=== PATIENT | female | born 1930 | race Caucasian/White ===

== ENCOUNTER 2017-03-01 19:58 | Inpatient (IN) | payer MEDICARE, OTHER ==
[~2017-03-01] VITALS: Ht 162.6 cm; Wt 48.5 kg
--- NOTE | 2017-03-01 20:12 | NUR ---
PT BIB FACILITY STAFF TO ER BED 14. HERE FOR MEDICAL AND PSYCH CLEARANCE. PER REPORT, INCREASING CONFUSION AND HALLUCINATION. UPON ASSESSMENT, PT IS AAOX4. DENIES PAIN OR ANY DISCOMFORT. STABLE VITALS. AWAITING MD ARVIZU.
--- NOTE | 2017-03-01 20:18 | NUR ---
DR SANDERSON AT BEDSIDE FOR EVAL.
--- NOTE | 2017-03-01 20:30 | NUR ---
BODY AND FENDER MECHANIC APPRENTICE AT BEDSIDE FOR BLOOD DRAW.
[2017-03-01 20:36] LABS: BASOPHILS # (AUTO) 0.1 /CMM (0.0-0.2); BASOPHILS % (AUTO) 0.7 % (0.0-2.0); EOSINOPHILS # (AUTO) 0.3 /CMM (0.0-0.7); EOSINOPHILS % (AUTO) 2.4 % (0.0-6.0); HEMATOCRIT 34 % (33-45); HEMOGLOBIN 11.3 g/dL (11.5-14.8); LYMPHOCYTES # (AUTO) 2.4 /CMM (0.8-4.8); LYMPHOCYTES % (AUTO) 21.8 % (20.0-44.0); MEAN CORPUSCULAR HEMOGLOBIN 29 PG (26.0-33.0); MEAN CORPUSCULAR HGB CONC 33 g/dl (31.0-36.0); MEAN CORPUSCULAR VOLUME 87 fL (82-100); MONOCYTES % (AUTO) 9.2 % (2.0-12.0); NEUTROPHILS # (AUTO) 7.2 /CMM (1.8-8.9); NEUTROPHILS % (AUTO) 65.9 % (43.0-81.0); PLATELET COUNT (AUTO) 451 /CMM (150-450); RDW COEFFICIENT OF VARIATION 15.2 (11.5-15.0); RED BLOOD CELL COUNT(AUTO) 3.92 MIL/uL (4.0-5.2)
[2017-03-01 20:54] LABS: CALCIUM, SERUM 9.5 mg/dL (8.5-10.1); CARBON DIOXIDE 34 mmol/L (21-32); CHLORIDE 96 mmol/L (98-107); CREATININE 1.1 mg/dL (0.6-1.3); GLUCOSE 140 mg/dL (74-106); POTASSIUM 4.8 mmol/L (3.5-5.1); SODIUM SERUM 133 mmol/L (136-145); UREA NITROGEN, BLOOD 43 mg/dL (7-18)
[2017-03-01 21:00] LABS: ALANINE AMINOTRANSFERASE 18 U/L (12-78); ALBUMIN 3.4 g/dL (3.4-5.0); ALKALINE PHOSPHATASE 99 U/L (46-116); ASPARTATE AMINOTRANSFERASE 13 U/L (15-37); BILIRUBIN,DIRECT 0.1 mg/dL (0.0-0.2); BILIRUBIN,TOTAL 0.1 mg/dL (0.2-1.0); SALICYLATE 1.8 mg/dL (2.8-20.0); TOTAL PROTEIN, SERUM 7.9 g/dL (6.4-8.2)
[2017-03-01 21:01] LABS: ACETAMINOPHEN 0 ug/ml (10-30); ALCOHOL, BLOOD < 5 mg/dL (0-0)
[2017-03-01 21:28] LABS: APPEARANCE,URINE Clear (CLEAR); BILIRUBIN,URINE Negative (NEGATIVE); BLOOD, URINE Moderate Ery/uL (NEGATIVE); COLOR,URINE Yellow (YELLOW); KETONES,URINE Negative (NEGATIVE); LEUKOCYTE ESTERASE ,URINE Large (NEGATIVE); NITRITE, URINE Negative (NEGATIVE); PROTEIN,URINE 100 mg/dl (NEGATIVE); UGLUCOSE Negative (NEGATIVE)
[2017-03-01] MEDS ORDERED: IV NS 0.9% 500 ML BAG IV ONE (21:30)
[2017-03-01 21:34] LABS: CANNABINOID, URINE NEGATIVE (NEGATIVE); PHENCYCLIDINE SCREEN,URINE NEGATIVE (NEGATIVE)
[2017-03-01 21:56] LABS: ADD URINE CULTURE YES; BACTERIA,URINE Many /HPF (None Seen); SQUAMOUS EPITHELIAL CELL,UR Few /HPF (None Seen); URINE AMORPHOUS URATE Few /HPF (None Seen); WBC,URINE TOO NUMEROUS TO COUN /HPF (0-3)
[2017-03-01] MEDS ORDERED: CIPROFLOXACIN HCL 500 MG TABLET PO ONE (22:30)
[2017-03-01] MEDS ORDERED: CIPROFLOXACIN HCL 500 MG TABLET ONE (22:31)
--- NOTE | 2017-03-01 23:06 | NUR ---
REPORT GIVEN TO JACOBO. PT AWAITING TRANSFER TO FLOOR.
[2017-03-01 23:30] VITALS: BP 148/72
[2017-03-02] MEDS ORDERED: ZOLPIDEM TARTRATE 5 MG TABLET PO PRN
[2017-03-02] MEDS ORDERED: LORAZEPAM 0.5 MG TABLET PO PRN
--- NOTE | 2017-03-02 | NUR ---
RN NOTE; ADMITTED A 87Y/O F, A, OX2. CONFUSED , WORRIED AND ANXIOUS. UNABLE TO PROVIDE ANY MEDICAL HX. BREATHING EVENLY. NO SOB. NO DISTRESS. AFEBRILE. DENIED ANY PAIN OR DISCOMFORT. ASSISTED PT TO THE BED . GOWNED , BODY CHECK DONE. NEEDS ATTENDED . BED LOW LOCKED. CALL BUTTON WITHIN REACH. WILL CONT TO MONITOR AND WILL F/U W/ MD'S ORDER.
[2017-03-02 00:37] VITALS: BP 148/72
[2017-03-02] MEDS ORDERED: METF850T2 PO (05:43)
[2017-03-02] MEDS ORDERED: LACT1CAP61 PO (05:43)
[2017-03-02] MEDS ORDERED: METO25TA6 PO (05:43)
[2017-03-02] MEDS ORDERED: MULT1TAB11 PO (05:43)
[2017-03-02] MEDS ORDERED: FERR325T28 PO (05:43)
[2017-03-02] MEDS ORDERED: ASCO500W7 PO (05:43)
[2017-03-02] MEDS ORDERED: ASPI-991 PO (05:43)
[2017-03-02] MEDS ORDERED: CHOL400T11 PO (05:43)
[2017-03-02] MEDS ORDERED: LINA5TAB PO (05:43)
[2017-03-02] MEDS ORDERED: VITA1CAP PO (05:43)
[2017-03-02] MEDS ORDERED: RANI150T8 PO (05:43)
--- NOTE | 2017-03-02 06:23 | NUR ---
RN NOTE; PT IN BED AWAKE AND RESPONSIVE. BREATHING EVENLY. NO SOB. NO DISTRESS. NO PSYCH OR BEHAVIORAL ISSUES NOTED SINCE ADMISSION. REMAINED CALM AND QUIET W/ NO EPISODE OF ANXIETY OR COMBATIVENESS. ASSISTED W/ ADLS . CLEANED AND DRIED. BED LOW LOCKED. CALL LIGHT WITHIN REACH. WILL CONT TO MONITOR AND WILL ENDORSE TO AM SHIFT FOR DOUGLAS.
[2017-03-02 07:34] LABS: CREATININE 1.1 mg/dL (0.6-1.3)
[2017-03-02] MEDS ORDERED: AMIN30LI4 PO (07:37)
[2017-03-02 07:39] LABS: CHOLESTEROL 197 mg/dL (<200); HDL CHOLESTEROL 59 mg/dL (40-60); LDL 110 mg/dL (0-99); TRIGLYCERIDES 210 mg/dL (30-150)
[2017-03-02] MEDS ORDERED: MAGN400O6 PO (07:46)
[2017-03-02] MEDS ORDERED: ACET-868 PO (07:46)
[2017-03-02] MEDS ORDERED: MAG30ORA PO (07:46)
[2017-03-02] MEDS ORDERED: HYDR-548 PO (07:49)
[2017-03-02 08:00] VITALS: BP 154/80
[2017-03-02] MEDS ORDERED: LEVOFLOXACIN (750 MG) 750 MG TABLET PO SCH ×2 (11:30→12:00)
[2017-03-02] MEDS ORDERED: DEXTROSE 50%-WATER 50 ML DISP.SYRIN IV PRN (11:30)
--- NOTE | 2017-03-02 12:03 | NUR ---
Initial DC Plan: Patient resides at [facility] ([address], [place] [address]; ). Assigned SW to contact facility to see if patient is able to return once discharged. SW attempted to contact the patient's dtr Blanca Hutchinson ([phone]) but she did not answer and SW left her contact information. Assigned SW to follow up with the patient's daughter regarding discharge plan. Patient wants to return to [facility] once discharged from the hospital. For smoking cessation, patient will be referred to the [employer] (990-YDHX-ZCE) and the [employer] ([phone]). SW will help form a safe and proper discharge.
[2017-03-02] MEDS: BLOOD SUGAR DIAGNOSTIC 1 EACH STRIP IN SCH ×3 (12:06→22:38)
[2017-03-02] MEDS: INSULIN REGULAR, HUMAN 100 UNIT/ML 3 ML VIAL SQ PRN ×2 (12:19→17:57)
--- NOTE | 2017-03-02 13:02 | NUR ---
Dr. Canales came into the unit, examined the pt. and with orders and was told to reconcile meds.
[2017-03-02] MEDS ORDERED: HYDROCODONE/APAP 10/325MG 1 EA TABLET PO PRN (13:30)
[2017-03-02] MEDS ORDERED: MAGNESIUM HYDROXIDE 30 ML UDC PO PRN ×2 (13:30)
[2017-03-02] MEDS ORDERED: ACETAMINOPHEN 325 MG TABLET PO PRN ×2 (13:30)
[2017-03-02] MEDS ORDERED: MAG HYDROX/AL HYDROX/SIMETH 30 ML UDC PO PRN ×2 (13:30)
[2017-03-02] MEDS: SERTRALINE HCL 25 MG TABLET PO SCH (15:20)
[2017-03-02 15:59] VITALS: BP 144/79
[2017-03-02] MEDS: LACTOBACILLUS RHAMNOSUS GG 1 EACH CAP.SPRINK PO SCH (16:26)
[2017-03-02] MEDS: PROSOURCE / PROSTAT (PYXIS) 30 ML UDC PO SCH (16:26)
[2017-03-02] MEDS: ASCORBIC ACID 500 MG TABLET PO SCH (16:27)
[2017-03-02] MEDS: METOPROLOL TARTRATE 25 MG TABLET PO SCH (16:27)
[2017-03-02] MEDS: FERROUS SULFATE (325 MG) 325 MG/TAB TABLET PO SCH (16:28)
[2017-03-02] MEDS: METFORMIN 850 MG TABLET PO SCH (16:28)
[2017-03-02] MEDS ORDERED: Medication Not On Formulary EA (Lactobacillus Acidophilus (Acidophilus) 1 EACH) PO SCH (17:00)
[2017-03-02] MEDS: FAMOTIDINE (20 MG) 20 MG TABLET PO SCH (21:13)
[2017-03-02] MEDS: QUETIAPINE FUMARATE 25 MG TABLET PO SCH (21:13)
[2017-03-03] MEDS ORDERED: ONDANSETRON 4 MG TAB.RAPDIS ONE (05:39)
--- NOTE | 2017-03-03 05:52 | NUR ---
patient vomited x 2 coffee brown called the drLynn second hand and received the order for Zofran 4 mg. q6hrs prn and administered to the patient.
--- NOTE | 2017-03-03 06:46 | NUR ---
BLOOD SUGAR THIS MORNING IS 215 WILL ENDURSE TO THE MORNING SHIFT FOR SLIDING SCALE.
[2017-03-03] MEDS ORDERED: ONDANSETRON 4 MG TAB.RAPDIS PO PRN (07:30)
[2017-03-03] MEDS: BLOOD SUGAR DIAGNOSTIC 1 EACH STRIP IN SCH ×4 (07:41→21:48)
[2017-03-03] MEDS: INSULIN REGULAR, HUMAN 100 UNIT/ML 3 ML VIAL SQ PRN ×2 (07:42→21:49)
[2017-03-03 08:00] VITALS: BP 141/87
[2017-03-03] MEDS: PROSOURCE / PROSTAT (PYXIS) 30 ML UDC PO SCH ×2 (08:27→16:33)
[2017-03-03] MEDS: VITAMIN B COMP W-C 1 TAB TABLET PO SCH (08:27)
[2017-03-03] MEDS: LACTOBACILLUS RHAMNOSUS GG 1 EACH CAP.SPRINK PO SCH ×2 (08:27→16:32)
[2017-03-03] MEDS: SERTRALINE HCL 25 MG TABLET PO SCH (08:28)
[2017-03-03] MEDS: METFORMIN 850 MG TABLET PO SCH ×2 (08:28→16:32)
[2017-03-03] MEDS: LINAGLIPTIN 5 MG TABLET PO SCH (08:28)
[2017-03-03] MEDS: MULTIVITAMINS W-MINERALS 1 TAB TABLET PO SCH (08:28)
[2017-03-03] MEDS: FAMOTIDINE (20 MG) 20 MG TABLET PO SCH ×2 (08:28→21:00)
[2017-03-03] MEDS: FERROUS SULFATE (325 MG) 325 MG/TAB TABLET PO SCH ×2 (08:28→16:32)
[2017-03-03] MEDS: ASPIRIN EC 81 MG TABLET.DR PO SCH (08:28)
[2017-03-03] MEDS: ASCORBIC ACID 500 MG TABLET PO SCH ×2 (08:28→16:32)
[2017-03-03] MEDS: METOPROLOL TARTRATE 25 MG TABLET PO SCH ×2 (08:29→16:33)
[2017-03-03] MEDS ORDERED: LEVOFLOXACIN (750 MG) 750 MG TABLET PO SCH (12:00)
[2017-03-03 13:46] LABS: IRON, SERUM 43 ug/dl (50-175); TOTAL IRON BINDING CAPACITY 344 ug/dl (250-450)
[2017-03-03] MEDS: CHOLECALCIFEROL (VITAMIN D 3) 400 UNIT TABLET PO SCH (14:37)
[2017-03-03 16:00] VITALS: BP 116/64
[2017-03-03 16:11] VITALS: BP 116/64
[2017-03-03 19:44] LABS: BASOPHILS % (AUTO) 0.1 % (0.0-2.0); EOSINOPHILS % (AUTO) 0.1 % (0.0-6.0); HEMATOCRIT 31 % (33-45); HEMOGLOBIN 9.9 g/dL (11.5-14.8); LYMPHOCYTES % (AUTO) 7.8 % (20.0-44.0); MEAN CORPUSCULAR HEMOGLOBIN 28 PG (26.0-33.0); MEAN CORPUSCULAR HGB CONC 32 g/dl (31.0-36.0); MEAN CORPUSCULAR VOLUME 88 fL (82-100); MONOCYTES # (AUTO) 1.2 /CMM (0.1-1.30); MONOCYTES % (AUTO) 9.5 % (2.0-12.0); NEUTROPHILS # (AUTO) 10.8 /CMM (1.8-8.9); NEUTROPHILS % (AUTO) 82.5 % (43.0-81.0); PLATELET COUNT (AUTO) 387 /CMM (150-450); RDW COEFFICIENT OF VARIATION 15.9 (11.5-15.0); RED BLOOD CELL COUNT(AUTO) 3.48 MIL/uL (4.0-5.2); WHITE BLOOD COUNT (AUTO) 13.1 K/uL (4.3-11.0)
[2017-03-03 19:45] VITALS: BP 195/96
[2017-03-03] MEDS ORDERED: CLONIDINE HCL 0.1 MG TABLET PO PRN (20:00)
--- NOTE | 2017-03-03 20:00 | NUR ---
GPS/RN-REPORTED TO FAUZIA DIXON REGARDING HIGH BP 195/98 AND AN EPISODE OF COFFEE GROUND EMESIS,MODERATE AMT.FAUZIA DIXON ORDERED CLONIDINE 0.1MG.Q6HRS.PRN.
--- NOTE | 2017-03-03 20:10 | NUR ---
GPS/KOSHER SEALER NOTES: PT. HAD ANOTHER EMESIS EPISODE AFTER GIVING CLONIDINE 0.1MG AND ZOFRAN 4MG PO PRN ORDERED. CHARGE NURSE MADE AWARE.
[2017-03-03 20:41] VITALS: BP 143/73
--- NOTE | 2017-03-03 20:45 | NUR ---
GPS/LEMON PICKER NOTES" BP RECHECKED. BP NOTED AT 143/73 HR NOTED AT 68. NO DISTRESS NOTED. NO NAUSEA OR VOMITING NOTED AT THIS TIME. WILL CONTINUE TO MONITOR.
[2017-03-03] MEDS: QUETIAPINE FUMARATE 25 MG TABLET PO SCH (21:49)
--- NOTE | 2017-03-03 21:50 | NUR ---
GPS/PROVIDER RELATIONS MANAGER NOTES: PT. REFUSED HS MEDS AND INSULIN COVERAGE. BS NOTED AT 149. PT. NOT FEELING WELL AND DOES NOT WANT TO TAKE MEDS BECAUSE SHES AFRAID OF VOMITING AGAIN. WILL CONTINUE TO MONITOR.
[2017-03-04] MEDS: BLOOD SUGAR DIAGNOSTIC 1 EACH STRIP IN SCH (07:30)
[2017-03-04 08:00] VITALS: BP 119/49
--- NOTE | 2017-03-04 09:08 | NUR ---
DR. BARTH CAME IN THE UNIT AND ORDERED PT. TO TRANSFER TO MED- SURG FOR COFFEE GROUND VOMITING.
--- NOTE | 2017-03-04 09:21 | NUR ---
DR. NAIDU MADE AWARE THAT PT. WITH AN ORDER TO TRANSFER O MED- SURG AND ORDERED TO DISCHARGE PT. TO MED-SURG AND TO CONTINUE ON HOLD. DR. NAIDU ALSO ORDERED TO D/C ZOLOFT AND TO CONTINUE THE REST OF HER MEDS.
[2017-03-04] MEDS: ASCORBIC ACID 500 MG TABLET PO SCH (09:42)
[2017-03-04] MEDS: LACTOBACILLUS RHAMNOSUS GG 1 EACH CAP.SPRINK PO SCH (09:42)
[2017-03-04] MEDS: MULTIVITAMINS W-MINERALS 1 TAB TABLET PO SCH (09:42)
[2017-03-04] MEDS: VITAMIN B COMP W-C 1 TAB TABLET PO SCH (09:43)
[2017-03-04] MEDS: METFORMIN 850 MG TABLET PO SCH (09:43)
[2017-03-04] MEDS: FERROUS SULFATE (325 MG) 325 MG/TAB TABLET PO SCH (09:43)
[2017-03-04 09:44] VITALS: BP 119/49
[2017-03-04] MEDS: LINAGLIPTIN 5 MG TABLET PO SCH (09:44)
[2017-03-04] MEDS: METOPROLOL TARTRATE 25 MG TABLET PO SCH (09:44)
[2017-03-04] MEDS: PROSOURCE / PROSTAT (PYXIS) 30 ML UDC PO SCH (09:45)
[2017-03-04] MEDS: FAMOTIDINE (20 MG) 20 MG TABLET PO SCH (09:45)
[2017-03-04] MEDS: ASPIRIN EC 81 MG TABLET.DR PO SCH (09:45)
[2017-03-04] MEDS: CHOLECALCIFEROL (VITAMIN D 3) 400 UNIT TABLET PO SCH (09:45)
[2017-03-04] MEDS ORDERED: PANTOPRAZOLE 80 MG in IV NS 0.9% 500 ML IV PRN (10:00)
[2017-03-04] MEDS ORDERED: PANTOPRAZOLE 80 MG in IV NS 0.9% 100 ML IV ONE (10:00)
--- NOTE | 2017-03-04 10:05 | NUR ---
DISCHARGE NOTES/ PATIENT DISCHARGE AT THIS TIME TO MED/SURGE UNIT FOR CONTINUATION OF CARE FOR Dx. OF COFFEE GROUND VOMITING. PT MED COMPLIANT, V/ S STABLE, BS-111 MG/DL, NO RESPIRATORY DISTRESS. PT DENIED SI/HI/AVH AT THIS TIME. CONTINUED HOLD. ESCORTED PATIENT BY NATALIE CHAIR TO THE MED/SURGE UNIT ROOM 200 BED A. BEDSIDE REPORT GIVEN RALPH ERWIN, RN VERBALIZED UNDERSTANDING, BELONGING RETURNED BACK TO THE PATIENT. PATIENT FAMILY AWARE OF.
[2017-03-04 10:10] LABS: BASOPHILS % (AUTO) 0.1 % (0.0-2.0); HEMATOCRIT 29 % (33-45); HEMOGLOBIN 9.4 g/dL (11.5-14.8); LYMPHOCYTES % (AUTO) 9.4 % (20.0-44.0); MEAN CORPUSCULAR HEMOGLOBIN 29 PG (26.0-33.0); MEAN CORPUSCULAR HGB CONC 33 g/dl (31.0-36.0); MEAN CORPUSCULAR VOLUME 88 fL (82-100); MONOCYTES # (AUTO) 0.8 /CMM (0.1-1.30); MONOCYTES % (AUTO) 7.1 % (2.0-12.0); NEUTROPHILS # (AUTO) 9.2 /CMM (1.8-8.9); NEUTROPHILS % (AUTO) 83.4 % (43.0-81.0); PLATELET COUNT (AUTO) 352 /CMM (150-450); RDW COEFFICIENT OF VARIATION 15.3 (11.5-15.0); RED BLOOD CELL COUNT(AUTO) 3.24 MIL/uL (4.0-5.2)
[2017-03-04] MEDS ORDERED: PANT40VI IV (11:01)
[2017-03-04] MEDS ORDERED: INSU100V3 SQ (11:01)
[2017-03-04] MEDS ORDERED: ONDA4TAB8 PO (11:01)
[2017-03-04] MEDS ORDERED: LEVO750T46 PO (11:01)
[2017-03-04] MEDS ORDERED: QUET25TA PO (11:01)
[2017-03-04] MEDS ORDERED: ZOLP5TAB7 PO (11:01)
[2017-03-04] MEDS ORDERED: ASCO500T9 PO (11:01)
[2017-03-04] MEDS ORDERED: ASPI-991 PO (11:01)
[2017-03-04] MEDS ORDERED: CLON0.1T PO (11:01)
[2017-03-04] MEDS ORDERED: BLOO-668 IN (11:01)
[2017-03-04] MEDS ORDERED: LORA0.5T PO (11:01)
[2017-03-04] MEDS ORDERED: FAMO20TA8 PO (11:01)
== END 2017-03-04 10:06 | disposition short-term general hospital (02) | DRG 885 ==
LOC: ER 20:01 → GPS 23:25
PROVIDERS: ADMIT Psychiatry & Neurology Psychosomatic Medicine; ATTEND Nurse Practitioner Acute Care
DX: F32.3 Major depressive disorder, single episode, severe with psychotic features (principal); F02.80 Dementia in other diseases classified elsewhere, unspecified severity, without behavioral disturbance, psychotic disturbance, mood disturbance, and anxiety; G93.41 Metabolic encephalopathy; N39.0 Urinary tract infection, site not specified; K92.2 Gastrointestinal hemorrhage, unspecified; F29 Unspecified psychosis not due to a substance or known physiological condition; E78.5 Hyperlipidemia, unspecified; E11.9 Type 2 diabetes mellitus without complications; G30.9 Alzheimer's disease, unspecified; I10 Essential (primary) hypertension; Z73.6 Limitation of activities due to disability; B96.20 Unspecified Escherichia coli [E. coli] as the cause of diseases classified elsewhere
CPT/HCPCS: 36415; 80048-TC; 80061-TC; 80076-TC; 80305; 81000-TC; 82565-TC; 82962-TC; 83540-TC; 85025-TC; 87086-TC; 87186-TC; A4606; C9113; G0480; G6039-TC; J1815; J7030; Q0162; Z7610

== ENCOUNTER 2017-03-04 10:44 | Inpatient (IN) | payer MEDICARE, OTHER ==
[~2017-03-04] VITALS: Ht 162.6 cm; Wt 48.5 kg
[2017-03-04 10:15] VITALS: BP 122/60
[2017-03-04 10:20] VITALS: BP 122/60
--- NOTE | 2017-03-04 10:30 | NUR ---
MS NOTES 87 YEARS OLD FEMALE ADMITTED FROM [facility] UNIT WITH DX OF GI BLEED. SAFELY TRANSFERRED PATIENT TO BED, V/S TAKEN AND RECORDED. PATIENT WITH EPISODE OF NON PRODUCTIVE COUGH, NO SOB NOTED. NO IV ACCESS. PATIENT IS A/O X2, FORGETFUL, ON [address] NA[address]U PER REPORT. PLACE CALL LIGHT WITHIN REACH. BED LOW AND LOCKED, SIDE RAILS UP X2. WILL CONT TO MONITOR, 1:1 SITTER AT THE BED SIDE.
[~2017-03-04 10:44] MED LIST: ACET-868 PO; AMIN30LI4 PO; ASCO500W7 PO; ASPI-991 PO; CHOL400T11 PO; FERR325T28 PO; HYDR-548 PO; LACT1CAP61 PO; LINA5TAB PO; MAG30ORA PO; MAGN400O6 PO; METF850T2 PO; METO25TA6 PO; MULT1TAB11 PO; RANI150T8 PO; VITA1CAP PO
[2017-03-04] MEDS ORDERED: BLOO-668 IN (11:01)
[2017-03-04] MEDS ORDERED: CLON0.1T PO (11:01)
[2017-03-04] MEDS ORDERED: PANT40VI IV (11:01)
[2017-03-04] MEDS ORDERED: ASCO500T9 PO (11:01)
[2017-03-04] MEDS ORDERED: ONDA4TAB8 PO (11:01)
[2017-03-04] MEDS ORDERED: ZOLP5TAB7 PO (11:01)
[2017-03-04] MEDS ORDERED: QUET25TA PO (11:01)
[2017-03-04] MEDS ORDERED: ASPI-991 PO (11:01)
[2017-03-04] MEDS ORDERED: FAMO20TA8 PO (11:01)
[2017-03-04] MEDS ORDERED: LORA0.5T PO (11:01)
[2017-03-04] MEDS ORDERED: INSU100V3 SQ (11:01)
[2017-03-04] MEDS ORDERED: LEVO750T46 PO (11:01)
[2017-03-04] MEDS ORDERED: ACETAMINOPHEN 325 MG TABLET PO PRN (12:30)
[2017-03-04] MEDS ORDERED: HYDROCODONE/APAP 5/325MG 1 EACH TABLET PO PRN (12:30)
[2017-03-04] MEDS ORDERED: MAG HYDROX/AL HYDROX/SIMETH 30 ML UDC PO PRN (12:30)
[2017-03-04] MEDS ORDERED: MAGNESIUM HYDROXIDE 30 ML UDC PO PRN (12:30)
[2017-03-04] MEDS ORDERED: ZOLPIDEM TARTRATE 5 MG TABLET PO PRN (12:30)
[2017-03-04] MEDS ORDERED: CLONIDINE HCL 0.1 MG TABLET PO PRN (13:00)
[2017-03-04] MEDS ORDERED: DEXTROSE 50%-WATER 50 ML DISP.SYRIN IV PRN (13:00)
--- NOTE | 2017-03-04 13:24 | NUR ---
DR. JASON CALLED, ORDERED TO GIVE DIET TO THE PATIENT, PLACE PATIENT ON DIABETIC DIET. FOR GI CONSULT.
[2017-03-04] MEDS ORDERED: PROSOURCE / PROSTAT (PYXIS) 30 ML UDC PO SCH (13:30)
[2017-03-04] MEDS ORDERED: IV SET PRIMARY PUMP SET 1 EA INFUS.SET MC ONE (13:50)
[2017-03-04] MEDS: IV NS 0.9% 1,000 ML IV PRN (14:25)
[2017-03-04] MEDS ORDERED: OLANZAPINE 5 MG/TAB.RAPDIS SL PRN (15:00)
--- NOTE | 2017-03-04 15:00 | NUR ---
PATIENT IS SEEN BY DR. NAIDU TODAY, PATIENT IS ON 14 DAY HOLD STARTING 03/04/17 TO 03/18/17.
--- NOTE | 2017-03-04 15:37 | NUR ---
PATIENT NOTED WITH COUGHING, PRODUCTIVE WITH PHLEGM. THICK AND WHITISH. NOTIFIED DR. ED JASON ORDERED TO GIVE ROBITUSSIN 10ML Q4 HOUR PO PRN NOTED AND ACKNOWLEDGED.
[2017-03-04 16:00] VITALS: BP 109/68
[2017-03-04] MEDS: METOPROLOL TARTRATE 25 MG TABLET PO SCH (17:00)
[2017-03-04] MEDS: FERROUS SULFATE (325 MG) 325 MG/TAB TABLET PO SCH (17:20)
[2017-03-04] MEDS: PROSOURCE / PROSTAT (PYXIS) 30 ML UDC PO SCH (17:20)
[2017-03-04] MEDS: LACTOBACILLUS RHAMNOSUS GG 1 EACH CAP.SPRINK PO SCH (17:20)
[2017-03-04] MEDS: METFORMIN 850 MG TABLET PO SCH (17:21)
[2017-03-04] MEDS: ASCORBIC ACID 500 MG TABLET PO SCH (17:21)
[2017-03-04] MEDS: BLOOD SUGAR DIAGNOSTIC 1 EACH STRIP IN SCH ×2 (17:21→21:27)
[2017-03-04] MEDS: INSULIN REGULAR, HUMAN 100 UNIT/ML 3 ML VIAL SQ PRN (17:22)
[2017-03-04] MEDS: GUAIFENESIN/D-METHORPHAN HB 5 ML UDC PO PRN (17:23)
--- NOTE | 2017-03-04 17:27 | NUR ---
BS 104MG/DL. NO INSULIN CHRISTIAN COUNSELOR PER ISS COVERAGE.
[2017-03-04] MEDS ORDERED: BLOOD SUGAR DIAGNOSTIC 1 EACH STRIP IN SCH (17:30)
--- NOTE | 2017-03-04 18:49 | NUR ---
MS RN CLOSING NOTES PATIENT IN BED, ON ROOM AIR, TOLERATING WELL. NO SOB NOTED. NO EPISODE OF VOMITING DURING THE SHIFT, NO ACTIVE BLEEDING. IV IN LEFT AC G22 PATENT AND INTACT, IV NS INFUSING AT 75ML/HR, TOLERATING WELL. NO C/O PAIN AT THIS TIME. BLOOD SUGAR MONITORED, NO S/S OF HYPO/HYPERGLYCEMIA. SCD IN PLACE. CALL LIGHT WITHIN REACH. BED LOW AND LOCKED. FOR GI CONSULT. WILL ENDORSE TO ENGINEER BOOSTER AND EXHAUSTER RN FOR CONTINUITY OF CARE.
[2017-03-04 19:00] VITALS: BP 127/69
--- NOTE | 2017-03-04 19:05 | NUR ---
MS RN OPENING NOTES: RECEIVED PATIENT IN BED AWAKE WITH HOB ELEVATED. PT A/O X 2. PT KEPT CLEAN, DRY, AND COMFORTABLE. NO SIGNS OF DISTRESS NOTED. BREATHING EVEN AND UNLABORED. CALL LIGHT WITHIN PATIENT'S REACH. BED IN LOCKED, LOWEST POSITION, AND SIDE RAILS X2 UP. IV ON L AC #22 AND IS PATENT AND INTACT. WILL CONTINUE TO MONITOR PT.
[2017-03-04 20:00] VITALS: BP 127/69
--- NOTE | 2017-03-04 20:00 | NUR ---
MS RN NOTES: NOTED SACRAL REDNESS, WASH WITH SOAP AND WATER, PAT DRY Z ION AND MEPILEX APPLIED, TURN AND REPOSITION PT Q2 AND NEEDED, BLE OFFLOADED
[2017-03-04] MEDS: ONDANSETRON HCL/PF 4 MG/2 ML VIAL IVP PRN (21:12)
--- NOTE | 2017-03-04 21:12 | NUR ---
MS RN NOTES: PATIENT WAS GIVEN ZOFRAN 4MG IV. WILL CONTINUE TO MONITOR PT.
[2017-03-04] MEDS: NITROFURANTOIN/NITROFURAN MAC 100 MG CAPSULE PO SCH (21:21)
[2017-03-04] MEDS: Z GUARD REMEDY 2 OZ OINT TP PRN (21:26)
[2017-03-04] MEDS: *INSULIN REGULAR(HUMULIN R)HUM 100 UNIT/ML VIAL SQ PRN (21:28)
--- NOTE | 2017-03-04 21:28 | NUR ---
MS RN NOTES: BLOOD SUGAR CHECKED AND IT WAS 110. NO INSULIN GIVEN.
[2017-03-04] MEDS ORDERED: QUETIAPINE FUMARATE 25 MG TABLET PO SCH (22:00)
[2017-03-05] MEDS: IV NS 0.9% 1,000 ML IV PRN (02:25)
--- NOTE | 2017-03-05 04:55 | NUR ---
MS RN NOTES: EKG HAS BEEN COMPLETED BY RT.
[2017-03-05] MEDS: BLOOD SUGAR DIAGNOSTIC 1 EACH STRIP IN SCH ×4 (06:18→21:44)
--- NOTE | 2017-03-05 06:47 | NUR ---
MS RN CLOSING NOTES: ALL NEEDS WERE ATTENDED. PATIENT IN BED, AWAKE, A/O X1 CONFUSED. PT ON ROOM AIR, TOLERATING WELL. NO SOB OR SIGNS AND SYMPTOMS OF DISTRESS NOTED. PT KEPT CLEAN, DRY, AND COMFORTABLE. PT HAD 2 BMS DURING SHIFT. NO EPISODES OF VOMITING DURING THE SHIFT. IV IN LEFT AC G22 PATENT AND INTACT, IV NS INFUSING AT 75ML/HR, AND TOLERATING WELL. NO C/O PAIN AT THIS TIME. BLOOD SUGAR WAS 111. NO COVERAGE GIVEN. SCD IN PLACE. CALL LIGHT WITHIN PT'S REACH. BED IN LOWEST, LOCKED POSITION, AND SIDE RAILS X2 UP. WILL ENDORSE TO DAY SHIFT NURSE FOR CONTINUITY OF CARE.
[2017-03-05 07:06] LABS: BASOPHILS % (AUTO) 0.2 % (0.0-2.0); HEMATOCRIT 27 % (33-45); HEMOGLOBIN 8.7 g/dL (11.5-14.8); LYMPHOCYTES # (AUTO) 1.5 /CMM (0.8-4.8); LYMPHOCYTES % (AUTO) 11.8 % (20.0-44.0); MEAN CORPUSCULAR HEMOGLOBIN 29 PG (26.0-33.0); MEAN CORPUSCULAR HGB CONC 33 g/dl (31.0-36.0); MEAN CORPUSCULAR VOLUME 88 fL (82-100); MONOCYTES # (AUTO) 1.1 /CMM (0.1-1.30); MONOCYTES % (AUTO) 9.1 % (2.0-12.0); NEUTROPHILS # (AUTO) 9.8 /CMM (1.8-8.9); NEUTROPHILS % (AUTO) 78.9 % (43.0-81.0); PLATELET COUNT (AUTO) 322 /CMM (150-450); RDW COEFFICIENT OF VARIATION 15.7 (11.5-15.0); RED BLOOD CELL COUNT(AUTO) 3.01 MIL/uL (4.0-5.2); WHITE BLOOD COUNT (AUTO) 12.4 K/uL (4.3-11.0)
[2017-03-05 07:10] LABS: INR 1.01 (0.87-1.13); PROTHROMBIN TIME 10.8 SECS (9.5-12.7)
[2017-03-05 07:28] LABS: CALCIUM, SERUM 8.5 mg/dL (8.5-10.1); CREATININE 1.9 mg/dL (0.6-1.3); MAGNESIUM 1.5 mg/dL (1.8-2.4); PHOSPHORUS 5.7 mg/dL (2.5-4.9); POTASSIUM 4.3 mmol/L (3.5-5.1)
--- NOTE | 2017-03-05 07:30 | NUR ---
MS/RN MS/RN Opening note Patient received from overnight cashier. Appears comfortable, in no distress. Call light within reach, will continue to monitor and ensure safety.
[2017-03-05 08:00] VITALS: BP 127/58
[2017-03-05 08:02] VITALS: BP 127/58
[2017-03-05] MEDS: PANTOPRAZOLE 40 MG VIAL IV SCH (08:31)
[2017-03-05] MEDS: ONDANSETRON HCL/PF 4 MG/2 ML VIAL IVP PRN (08:31)
[2017-03-05] MEDS: NITROFURANTOIN/NITROFURAN MAC 100 MG CAPSULE PO SCH ×2 (08:31→21:44)
[2017-03-05] MEDS: FERROUS SULFATE (325 MG) 325 MG/TAB TABLET PO SCH ×2 (08:32→17:00)
[2017-03-05] MEDS: LINAGLIPTIN 5 MG TABLET PO SCH (08:32)
[2017-03-05] MEDS: LACTOBACILLUS RHAMNOSUS GG 1 EACH CAP.SPRINK PO SCH ×2 (08:32→17:24)
[2017-03-05] MEDS: PROSOURCE / PROSTAT (PYXIS) 30 ML UDC PO SCH ×2 (08:33→17:24)
[2017-03-05] MEDS: METOPROLOL TARTRATE 25 MG TABLET PO SCH ×2 (08:33→17:25)
[2017-03-05] MEDS: MULTIVITAMINS W-MINERALS 1 TAB TABLET PO SCH (08:33)
[2017-03-05] MEDS: METFORMIN 850 MG TABLET PO SCH ×2 (08:33→17:00)
[2017-03-05] MEDS: CHOLECALCIFEROL (VITAMIN D 3) 400 UNIT TABLET PO SCH (08:39)
[2017-03-05] MEDS: VITAMIN B COMP W-C 1 TAB TABLET PO SCH (08:39)
[2017-03-05] MEDS: ASCORBIC ACID 500 MG TABLET PO SCH ×2 (08:39→17:00)
--- NOTE | 2017-03-05 08:45 | NUR ---
MS/RN Dr Madie Ramachandran called via exchange, per MD, EGD will be scheduled for tomorrow. Patient may eat today and be NPO from midnight. MD made aware of morning blood results and low H&H.
[2017-03-05] MEDS: Z GUARD REMEDY 2 OZ OINT TP PRN (08:49)
--- NOTE | 2017-03-05 09:48 | NUR ---
MS/RN Labs Morning labs reviewed: -H&H 8.06/08 -WBC 12.4 -Mag 1.5 Plts 322 MD aware of results.
--- NOTE | 2017-03-05 09:58 | NUR ---
MS/RN S/B Dr Menezes Seen by Dr Menezes - labs ordered for tomorrow.
[2017-03-05] MEDS ORDERED: SECONDARY IV SET 1 EA INFUS.SET MC ONE (12:51)
[2017-03-05] MEDS: Magnesium 1GM/D5W 100ML PREMIX 100 ML IV SCH ×2 (12:57→14:03)
--- NOTE | 2017-03-05 13:10 | NUR ---
MS/RN S/B Dr Grewal Seen by Dr Grewal - continue with low dose zyprexa sublingual. Doing well psychiatrically, likely no need to return to [facility] when medically cleared.
[2017-03-05] MEDS: INSULIN REGULAR, HUMAN 100 UNIT/ML 3 ML VIAL SQ PRN (13:14)
[2017-03-05 16:00] VITALS: BP 131/61
--- NOTE | 2017-03-05 16:06 | NUR ---
MS/RN New order Dr Dr Menezes - jess to be changed to puree and swallow evaluation ordered. Patient complaining of difficulty swallowing.
[2017-03-05 16:16] VITALS: BP 131/61
--- NOTE | 2017-03-05 18:26 | NUR ---
MS/RN CLOSING NOTE P.T IS IN BED A&OX2, NOT IN DISTRESS, NO SOB. PAIN DENIED. LEFT ANTECUBITAL IV SITE INFUSING 75ML/HR. WEARING DVT PUMPS AND ARE ON. PT. DIET TEXTURE WAS CHANGED TO PUREE DUE TO PAIN FROM MOUTH SOARS. PT. IS SCHEDULED TO BE NPO AT MIDNIGHT FOR AN ESOPHAGOGASTRODUODENOSCOPY IN THE MORNING. CONSENT WAS VERBALIZED BY PT.'S DAUGHTER OVER THE PHONE AND CONSENT WAS SIGNED. CALL LIGHT WITHIN REACH, HEAD OF BED UP, 2 SIDE RAILS UP.
--- NOTE | 2017-03-05 19:30 | NUR ---
MS/RN OPENING NOTES PT ASLEEP, EASILY AROUSABLE TO NAME. A/OX2. ON ROOM AIR, DENIES SOB OR DISTRESS. BREATHING EVEN AND UNLABORED. DENIES PAIN. PT AWARE ABOUT NPO STATUS AFTER MIDNIGHT FOR EGD PROCEDURE TOMORROW. CONSENTS SIGNS AND FLAGGED IN THE CHART. LAC PATENT AND INTACT RUNNING IVF ORDERED. NO S/S OF REDNESS OR INFILTRATION NOTED. BED IN LOW/LOCKED POSITION WITH CALL LIGHT IN REACH, BED RAILS UPX2. BED ALARM ON. WILL CONTINUE TO MONITOR
[2017-03-05 20:00] VITALS: BP 127/64
--- NOTE | 2017-03-05 21:00 | NUR ---
MS/RN NOTES PT HAS TEMPERATURE OF 99.0F COOLING MEASURES IMPLEMENTED. WILL CONTINUE TO MONITOR
[2017-03-05] MEDS: *INSULIN REGULAR(HUMULIN R)HUM 100 UNIT/ML VIAL SQ PRN (21:57)
--- NOTE | 2017-03-05 23:00 | NUR ---
MS/RN NOTES TEMPERATURE RECHECKED= 98.4
[2017-03-06 06:14] LABS: CALCIUM, SERUM 8.2 mg/dL (8.5-10.1); CREATININE 1.4 mg/dL (0.6-1.3); POTASSIUM 3.4 mmol/L (3.5-5.1)
[2017-03-06 06:28] LABS: BASOPHILS % (AUTO) 0.2 % (0.0-2.0); EOSINOPHILS # (AUTO) 0.2 /CMM (0.0-0.7); EOSINOPHILS % (AUTO) 1.6 % (0.0-6.0); HEMATOCRIT 27 % (33-45); HEMOGLOBIN 8.8 g/dL (11.5-14.8); LYMPHOCYTES # (AUTO) 0.8 /CMM (0.8-4.8); LYMPHOCYTES % (AUTO) 8.2 % (20.0-44.0); MEAN CORPUSCULAR HEMOGLOBIN 29 PG (26.0-33.0); MEAN CORPUSCULAR HGB CONC 33 g/dl (31.0-36.0); MEAN CORPUSCULAR VOLUME 88 fL (82-100); MONOCYTES # (AUTO) 0.9 /CMM (0.1-1.30); MONOCYTES % (AUTO) 8.4 % (2.0-12.0); NEUTROPHILS # (AUTO) 8.4 /CMM (1.8-8.9); NEUTROPHILS % (AUTO) 81.6 % (43.0-81.0); PLATELET COUNT (AUTO) 321 /CMM (150-450); RDW COEFFICIENT OF VARIATION 15.1 (11.5-15.0); RED BLOOD CELL COUNT(AUTO) 3.07 MIL/uL (4.0-5.2); WHITE BLOOD COUNT (AUTO) 10.4 K/uL (4.3-11.0)
[2017-03-06] MEDS: BLOOD SUGAR DIAGNOSTIC 1 EACH STRIP IN SCH ×4 (06:31→21:14)
[2017-03-06] MEDS: INSULIN REGULAR, HUMAN 100 UNIT/ML 3 ML VIAL SQ PRN (06:32)
--- NOTE | 2017-03-06 06:36 | NUR ---
MS/RN NOTES BLOOD [id number]. NO INSULIN COVERAGE PER SLIDING SCALE. PT IS ALSO NPO FOR EGD TODAY
--- NOTE | 2017-03-06 06:45 | NUR ---
MS/RN CLOSING NOTES PT ASLEEP, EASILY AROUSABLE TO NAME. A/OX2. ON ROOM AIR, NO S/S OF DISTRESS OR SOB. DENIES PAIN. PT NPO FOR EGD TODAY, SCHEDULED AT 1530. CHECKLIST DONE, CONSENTS SIGNED AND FLAGGED IN THE CHART. IV TO LAC PATENT AND INTACT RUNNING IVF ORDERED. TURNED/REPOSITIONED PT Q2H AND PRN, EXTREMITIES OFFLOADED THROUGHOUT SHIFT. MADE PT COMFORTABLE THROUGHOUT SHIFT, ALL NEEDS MET AND ATTENDED TO. BED REMAINS IN LOW/LOCKED POSITION WITH CALL LIGHT IN REACH. BED RAILS UPX2. ENDORSED TO AM SHIFT DOUGLAS.
--- NOTE | 2017-03-06 07:30 | NUR ---
MS/RN Patient received Patient received from production shift supervisor. NPO at this time for EGD later this afternoon. Denies any pain or discomfort except when swallowing due to having mouth ulcers from ill fitting dentures. All needs attended, call light within reach. Remains on a hol, sitter at bedside.
[2017-03-06 08:00] VITALS: BP 129/47
[2017-03-06] MEDS: MULTIVITAMINS W-MINERALS 1 TAB TABLET PO SCH (08:20)
[2017-03-06] MEDS: FERROUS SULFATE (325 MG) 325 MG/TAB TABLET PO SCH ×2 (08:20→17:00)
[2017-03-06] MEDS: LACTOBACILLUS RHAMNOSUS GG 1 EACH CAP.SPRINK PO SCH ×2 (08:20→17:00)
[2017-03-06] MEDS: VITAMIN B COMP W-C 1 TAB TABLET PO SCH (08:20)
[2017-03-06] MEDS: LINAGLIPTIN 5 MG TABLET PO SCH (08:21)
[2017-03-06] MEDS: ASCORBIC ACID 500 MG TABLET PO SCH ×2 (08:21→17:00)
[2017-03-06] MEDS: CHOLECALCIFEROL (VITAMIN D 3) 400 UNIT TABLET PO SCH (08:21)
[2017-03-06] MEDS: METFORMIN 850 MG TABLET PO SCH ×2 (08:22→17:00)
[2017-03-06] MEDS: NITROFURANTOIN/NITROFURAN MAC 100 MG CAPSULE PO SCH ×2 (09:06→21:10)
[2017-03-06] MEDS: PANTOPRAZOLE 40 MG VIAL IV SCH (09:06)
[2017-03-06] MEDS: METOPROLOL TARTRATE 25 MG TABLET PO SCH ×2 (09:06→17:52)
[2017-03-06] MEDS: PROSOURCE / PROSTAT (PYXIS) 30 ML UDC PO SCH ×2 (09:06→17:47)
--- NOTE | 2017-03-06 09:07 | NUR ---
MS/RN Medications Morning medications administered, all scanned but not saved.
--- NOTE | 2017-03-06 10:09 | NUR ---
WOUND CARE CONSULT: PT PRESENTS WITH RESOLVING LIP DRYNESS. ALL SKIN PROTECTION MEASURES IN PLACE. DISCUSSED WITH NURSING STAFF. WILLIAM SCORE IS 15. WILL SEE PRN. NGUYEN IN AGREEMENT WITH PLAN OF CARE. Addendum: 03/06/17 at 1012 by GILDA MCKEON WNDNU Amended: Links added.
--- NOTE | 2017-03-06 11:00 | NUR ---
MS/RN S/B Dr Peres Seen by Dr Peres - labs ordered for tomorrow.
[2017-03-06] MEDS ORDERED: POTASSIUM CHLORIDE 20 MEQ TAB.PRT.SR PO SCH (11:30)
[2017-03-06] MEDS ORDERED: OLANZAPINE 5 MG/TAB.RAPDIS SL PRN (12:00)
--- NOTE | 2017-03-06 12:00 | NUR ---
MS/RN Blood sugar Blood sugar at noon 165, no coverage administered as patient NPO.
--- NOTE | 2017-03-06 12:01 | NUR ---
MS/RN S/B Dr Grewal Seen by Dr Carmina mcginnis changed to every six hours prn.
--- NOTE | 2017-03-06 14:10 | NUR ---
MS/RN GI Patient off floor at this time in GI lab for EGD.
--- NOTE | 2017-03-06 15:59 | NUR ---
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 Per Dr Ramachandran may resume pre op diet.
--- NOTE | 2017-03-06 18:12 | NUR ---
MS/RN End note Patient starting to become agitated, stating that she wants to go home. Explained to her that she will probably be discharged tomorrow but still insisting on going. Ativan 0.5mg administered, will monitor effects. Sitter remains at bedside within arms reach of patient, will endorse to warehouse worker 2nd shift.
[2017-03-06] MEDS: LORAZEPAM 0.5 MG TABLET PO PRN (18:18)
--- NOTE | 2017-03-06 19:30 | NUR ---
rn note; PT IN BED AWAKE ND ALERT. SITTER AT THE BED SIDE. BREATHING EVENLY. NO SOB. NO DISTRESS. SKIN WARM AND DRY. NO BEHAVIORAL AND PSYCH ISSUES NOTED AT THIS TIME.. ASSISTED W/ ADLS /CALL LIGHT WITHIN REACH. WILL CONT TO MONITOR
[2017-03-06 20:00] VITALS: BP 149/66
[2017-03-06] MEDS: IV NS 0.9% 1,000 ML IV PRN (21:14)
[2017-03-06] MEDS: *INSULIN REGULAR(HUMULIN R)HUM 100 UNIT/ML VIAL SQ PRN (21:18)
[2017-03-07 06:25] LABS: BASOPHILS % (AUTO) 0.1 % (0.0-2.0); EOSINOPHILS # (AUTO) 0.3 /CMM (0.0-0.7); EOSINOPHILS % (AUTO) 3.3 % (0.0-6.0); HEMATOCRIT 26 % (33-45); HEMOGLOBIN 8.6 g/dL (11.5-14.8); LYMPHOCYTES # (AUTO) 1.1 /CMM (0.8-4.8); LYMPHOCYTES % (AUTO) 12.8 % (20.0-44.0); MEAN CORPUSCULAR HEMOGLOBIN 29 PG (26.0-33.0); MEAN CORPUSCULAR HGB CONC 33 g/dl (31.0-36.0); MEAN CORPUSCULAR VOLUME 89 fL (82-100); MONOCYTES # (AUTO) 0.9 /CMM (0.1-1.30); MONOCYTES % (AUTO) 10.7 % (2.0-12.0); NEUTROPHILS # (AUTO) 6.1 /CMM (1.8-8.9); NEUTROPHILS % (AUTO) 73.1 % (43.0-81.0); PLATELET COUNT (AUTO) 288 /CMM (150-450); RDW COEFFICIENT OF VARIATION 14.7 (11.5-15.0); RED BLOOD CELL COUNT(AUTO) 2.95 MIL/uL (4.0-5.2); WHITE BLOOD COUNT (AUTO) 8.3 K/uL (4.3-11.0)
[2017-03-07] MEDS: BLOOD SUGAR DIAGNOSTIC 1 EACH STRIP IN SCH ×4 (06:31→21:35)
--- NOTE | 2017-03-07 06:41 | NUR ---
RN NOTE; PT IN BED AWAKE AND RESPONSIVE. REMAINED CALM AND COOPERATIVE DURING THE NIGHT . NO ANXIETY OR AGITATION. ON ONGOING IVF HYDRATION SEAN WELL. IV SITE. NO C/O PAIN OR DISCOMFORT. CLEANED AND DRIED. NEEDS ATTENDED. BED LOW LOCKED. SRX2. CALL LIGHT WITHIN REACH. WILL CONT TO MONITOR AND WILL ENDORSE TO AM SHIFT FOR DOUGLAS.
[2017-03-07 06:51] LABS: CALCIUM, SERUM 7.8 mg/dL (8.5-10.1); CREATININE 1.1 mg/dL (0.6-1.3); MAGNESIUM 1.5 mg/dL (1.8-2.4); PHOSPHORUS 2.1 mg/dL (2.5-4.9); POTASSIUM 3.2 mmol/L (3.5-5.1)
[2017-03-07] MEDS: GUAIFENESIN/D-METHORPHAN HB 5 ML UDC PO PRN (07:00)
--- NOTE | 2017-03-07 07:06 | NUR ---
COUGH SYRUP GIVEN FOR EPISODES OF COUGH. WILL CONT TO MONITOR.
[2017-03-07 08:00] VITALS: BP 162/81
--- NOTE | 2017-03-07 08:09 | NUR ---
AM RN NOTES RECEIVED PT IN STABLE CONDITION, SITTER AT BEDSIDE FOR MONITOR, NO SOB OR DISTRESS NO PAIN NOTED, WILL MONITOR PT.
[2017-03-07] MEDS: MULTIVITAMINS W-MINERALS 1 TAB TABLET PO SCH (08:42)
[2017-03-07] MEDS: PANTOPRAZOLE 40 MG VIAL IV SCH (08:42)
[2017-03-07] MEDS: METFORMIN 850 MG TABLET PO SCH ×2 (08:42→16:47)
[2017-03-07] MEDS: CHOLECALCIFEROL (VITAMIN D 3) 400 UNIT TABLET PO SCH (08:43)
[2017-03-07] MEDS: LACTOBACILLUS RHAMNOSUS GG 1 EACH CAP.SPRINK PO SCH ×2 (08:43→16:47)
[2017-03-07] MEDS: LINAGLIPTIN 5 MG TABLET PO SCH (08:43)
[2017-03-07] MEDS: NITROFURANTOIN/NITROFURAN MAC 100 MG CAPSULE PO SCH ×2 (08:44→21:29)
[2017-03-07] MEDS: VITAMIN B COMP W-C 1 TAB TABLET PO SCH (08:44)
[2017-03-07] MEDS: FERROUS SULFATE (325 MG) 325 MG/TAB TABLET PO SCH ×2 (08:45→16:47)
[2017-03-07] MEDS: ASCORBIC ACID 500 MG TABLET PO SCH ×2 (08:45→16:47)
[2017-03-07] MEDS: METOPROLOL TARTRATE 25 MG TABLET PO SCH ×2 (08:46→16:47)
[2017-03-07] MEDS: PROSOURCE / PROSTAT (PYXIS) 30 ML UDC PO SCH ×2 (08:46→16:47)
[2017-03-07] MEDS: ONDANSETRON HCL/PF 4 MG/2 ML VIAL IVP PRN (09:00)
[2017-03-07] MEDS: IV NS 0.9% 1,000 ML IV PRN (11:02)
[2017-03-07] MEDS ORDERED: SECONDARY IV SET 1 EA INFUS.SET MC ONE (11:19)
[2017-03-07] MEDS: Magnesium 1GM/D5W 100ML PREMIX 100 ML IV SCH ×2 (11:24→12:23)
[2017-03-07] MEDS: INSULIN REGULAR, HUMAN 100 UNIT/ML 3 ML VIAL SQ PRN (11:59)
[2017-03-07] MEDS: POTASSIUM CHLORIDE 20 MEQ TAB.PRT.SR PO SCH ×2 (12:11→13:12)
[2017-03-07] MEDS ORDERED: K PHOS NEUTRAL 250 MG TABLET PO ONE (15:30)
[2017-03-07 16:00] VITALS: BP 153/64
[2017-03-07 16:01] VITALS: BP 153/64
--- NOTE | 2017-03-07 18:17 | NUR ---
PT RESTING IN BED, NO SOB OR DISTRESS NOTED, SITTER AT BEDSIDE, NO BEHAVIOR PROBLEMS NOTED, PT CALM AND COOPERATIVE, WILL INDORSE TO NEXT SHIFT TO MONITOR.
--- NOTE | 2017-03-07 19:30 | NUR ---
rn note; PT IN BED AWAKE ND ALERT.BREATHING EVENLY. NO SOB. NO DISTRESS. STILL W/ ON AND OFF COUGH. SKIN WARM AND DRY. NO BEHAVIORAL AND PSYCH ISSUES NOTED AT THIS TIME.DENIED ANY PAIN OR DISCOMFORT. ASSISTED W/ ADLS /CALL LIGHT WITHIN REACH. WILL CONT TO MONITOR
[2017-03-07 20:00] VITALS: BP 145/58
[2017-03-07] MEDS: LORAZEPAM 0.5 MG TABLET PO PRN (21:29)
--- NOTE | 2017-03-07 21:30 | NUR ---
ATIVAN GIVEN ORDERED FOR EPISODES OF ANXIETY. WILL CONT TO MONITOR
--- NOTE | 2017-03-08 06:19 | NUR ---
RN NOTE; PT IN BED SLEEPING. REMAINED CALM AND COOPERATIVE DURING THE NIGHT W/ A GOOD NIGHT SLEEP. STILL W/ ON AND OFF COUGH. NO SOB. ON ONGOING IVF HYDRATION SEAN WELL. IV SITE INTACT. NO C/O PAIN OR DISCOMFORT. CLEANED AND DRIED. NEEDS ATTENDED. BED LOW LOCKED. SRX2. CALL LIGHT WITHIN REACH. WILL CONT TO MONITOR AND WILL ENDORSE TO AM SHIFT FOR DOUGLAS.
[2017-03-08] MEDS ORDERED: CEFAZOLIN SODIUM/DEXTROSE,ISO 50 ML IV ONE (06:42)
[2017-03-08] MEDS: IV NS 0.9% 1,000 ML IV PRN (06:52)
[2017-03-08] MEDS: BLOOD SUGAR DIAGNOSTIC 1 EACH STRIP IN SCH ×3 (06:52→17:57)
[2017-03-08 07:26] LABS: CALCIUM, SERUM 7.9 mg/dL (8.5-10.1); MAGNESIUM 1.8 mg/dL (1.8-2.4); POTASSIUM 3.9 mmol/L (3.5-5.1)
[2017-03-08 08:00] VITALS: BP 167/98
[2017-03-08] MEDS: LACTOBACILLUS RHAMNOSUS GG 1 EACH CAP.SPRINK PO SCH ×2 (08:39→16:32)
[2017-03-08] MEDS: METFORMIN 850 MG TABLET PO SCH ×2 (08:39→16:32)
[2017-03-08] MEDS: VITAMIN B COMP W-C 1 TAB TABLET PO SCH (08:39)
[2017-03-08] MEDS: PANTOPRAZOLE 40 MG VIAL IV SCH (08:39)
[2017-03-08] MEDS: MULTIVITAMINS W-MINERALS 1 TAB TABLET PO SCH (08:39)
[2017-03-08] MEDS: FERROUS SULFATE (325 MG) 325 MG/TAB TABLET PO SCH ×2 (08:39→16:32)
[2017-03-08] MEDS: PROSOURCE / PROSTAT (PYXIS) 30 ML UDC PO SCH ×3 (08:40→16:42)
[2017-03-08] MEDS: LINAGLIPTIN 5 MG TABLET PO SCH (08:40)
[2017-03-08] MEDS: NITROFURANTOIN/NITROFURAN MAC 100 MG CAPSULE PO SCH (08:40)
[2017-03-08] MEDS: METOPROLOL TARTRATE 25 MG TABLET PO SCH ×2 (08:41→16:33)
[2017-03-08] MEDS: ASCORBIC ACID 500 MG TABLET PO SCH ×2 (08:43→16:32)
[2017-03-08] MEDS: CHOLECALCIFEROL (VITAMIN D 3) 400 UNIT TABLET PO SCH (08:43)
[2017-03-08] MEDS: GUAIFENESIN/D-METHORPHAN HB 5 ML UDC PO PRN (09:04)
[2017-03-08] MEDS ORDERED: NITR100C15 PO (11:36)
[2017-03-08] MEDS ORDERED: SUCR1ORA6 PO (11:36)
[2017-03-08] MEDS ORDERED: PANT40TA2 PO (11:36)
[2017-03-08] MEDS ORDERED: OLAN5TAB6 SL (11:36)
--- NOTE | 2017-03-08 11:39 | NUR ---
RN Notes Informed Dr Mcarthur patient have wheezes and nasal congestion with order to give douneb, lasix IV 20 mg x 1 now and k dur 20 meq tab x 1 now noted and carried out.
[2017-03-08] MEDS ORDERED: FUROSEMIDE 20 MG/2 ML VIAL IV ONE ×2 (12:00→13:00)
[2017-03-08] MEDS ORDERED: ALBUTEROL FS 2.5 MG/3 ML VIAL.NEB NEB PRN (12:00)
[2017-03-08] MEDS ORDERED: POTASSIUM CHLORIDE 20 MEQ TAB.PRT.SR PO ONE (12:00)
[2017-03-08] MEDS ORDERED: IPRATROPIUM NEB FS 0.5 MG/2.5 ML AMPUL.NEB NEB PRN (12:00)
[2017-03-08] MEDS: SUCRALFATE 1 G/10 ML UDC PO SCH ×3 (12:55→16:42)
[2017-03-08] MEDS: INSULIN REGULAR, HUMAN 100 UNIT/ML 3 ML VIAL SQ PRN (12:57)
--- NOTE | 2017-03-08 15:01 | NUR ---
RN Notes Spoke with SERA Mena regarding patient medically clear for DC by Dr Mcarthur. She said will notify us of placement.
[2017-03-08] MEDS ORDERED: K PHOS NEUTRAL 250 MG TABLET PO ONE (15:30)
[2017-03-08 16:00] VITALS: BP 140/69
[2017-03-08 16:33] VITALS: BP 140/69
--- NOTE | 2017-03-08 17:27 | NUR ---
RN Notes Discharge instruction given on home medication including cont antibiotic nitrofurantoin x 7 days and follow up with primary care physician.Final body check done but patient refused to have picture documentation of sacral area and areas with ecchymosis.IV access on left ac removed and secured site with dressing. Report given to RN in Renata Arzola. Waiting for bean picker.
--- NOTE | 2017-03-08 18:31 | NUR ---
RN Notes Left hospital via wheelchair in stable condition. Patient is awake,alert and oriented. Not in any form of distress.
[2017-03-08] MEDS ORDERED: PANTOPRAZOLE 40 MG TABLET.DR PO SCH (21:00)
== END 2017-03-08 18:28 | DRG 377 ==
LOC: MEDSG2 10:44
PROVIDERS: ADMIT Family Medicine; ATTEND Family Medicine
PROC: 0DJ08ZZ Inspection of Upper Intestinal Tract, Via Natural or Artificial Opening Endoscopic (ICD-10-PCS; principal; 2017-03-06 15:30)
DX: K31.811 Angiodysplasia of stomach and duodenum with bleeding (principal); N17.0 Acute kidney failure with tubular necrosis; N39.0 Urinary tract infection, site not specified; F32.3 Major depressive disorder, single episode, severe with psychotic features; K92.0 Hematemesis; G30.9 Alzheimer's disease, unspecified; I10 Essential (primary) hypertension; F02.80 Dementia in other diseases classified elsewhere, unspecified severity, without behavioral disturbance, psychotic disturbance, mood disturbance, and anxiety; E78.5 Hyperlipidemia, unspecified; E11.9 Type 2 diabetes mellitus without complications; F29 Unspecified psychosis not due to a substance or known physiological condition; D64.9 Anemia, unspecified; F09 Unspecified mental disorder due to known physiological condition; K20.9 Esophagitis, unspecified; K29.70 Gastritis, unspecified, without bleeding; K29.80 Duodenitis without bleeding
CPT/HCPCS: 36415; 71010-TC; 80048-TC; 82962-TC; 83735-TC; 84100-TC; 85025-TC; 85610-TC; 85730-TC; 86850-TC; 87081-TC; 92611-TC; C9113; J0690; J1815; J1940; J2001; J2405; J2704; J3475; J7030; Z7610

== ENCOUNTER 2017-06-19 15:49 | Inpatient (IN) | payer MEDICARE, OTHER ==
[~2017-06-19] VITALS: Ht 152.4 cm; Wt 65.8 kg
[~2017-06-19 15:49] MED LIST changes: +ASCO500T9 PO; -ASCO500W7 PO; +BLOO-668 IN; +CLON0.1T PO; +FAMO20TA8 PO; +INSU100V3 SQ; +LORA0.5T PO; +NITR100C15 PO; +OLAN5TAB6 SL; +ONDA4TAB8 PO; +PANT40TA2 PO; -RANI150T8 PO; +SUCR1ORA6 PO; +ZOLP5TAB7 PO
--- NOTE | 2017-06-19 16:00 | NUR ---
PT [facility]ON [facility]OURNE FROM SNF TO ER BED 10. HERE FOR MEDICAL EVAL PRIOR TO PSYCH ADMISSION. PT IS AAOX2. GOWNED AND PLACED ON MONITOR. AWAITING MD ARVIZU.
--- NOTE | 2017-06-19 16:01 | NUR ---
DR SOLIS AT BEDSIDE FOR EVAL.
[2017-06-19 16:13] LABS: BASOPHILS % (AUTO) 0.4 % (0.0-2.0); EOSINOPHILS % (AUTO) 0.2 % (0.0-6.0); HEMATOCRIT 28 % (33-45); HEMOGLOBIN 8.9 g/dL (11.5-14.8); LYMPHOCYTES # (AUTO) 1.7 /CMM (0.8-4.8); LYMPHOCYTES % (AUTO) 16.1 % (20.0-44.0); MEAN CORPUSCULAR HEMOGLOBIN 25 PG (26.0-33.0); MEAN CORPUSCULAR HGB CONC 32 g/dl (31.0-36.0); MEAN CORPUSCULAR VOLUME 79 fL (82-100); MONOCYTES # (AUTO) 1.2 /CMM (0.1-1.30); MONOCYTES % (AUTO) 10.8 % (2.0-12.0); NEUTROPHILS # (AUTO) 7.8 /CMM (1.8-8.9); NEUTROPHILS % (AUTO) 72.5 % (43.0-81.0); PLATELET COUNT (AUTO) 561 /CMM (150-450); RDW COEFFICIENT OF VARIATION 16.3 (11.5-15.0); RED BLOOD CELL COUNT(AUTO) 3.52 MIL/uL (4.0-5.2); WHITE BLOOD COUNT (AUTO) 10.7 K/uL (4.3-11.0)
[2017-06-19 16:25] LABS: CALCIUM, SERUM 9.5 mg/dL (8.5-10.1); CARBON DIOXIDE 26 mmol/L (21-32); CHLORIDE 97 mmol/L (98-107); CREATININE 1.3 mg/dL (0.6-1.3); GLUCOSE 156 mg/dL (74-106); POTASSIUM 4.1 mmol/L (3.5-5.1); SODIUM SERUM 133 mmol/L (136-145); UREA NITROGEN, BLOOD 34 mg/dL (7-18)
[2017-06-19 16:43] LABS: ALANINE AMINOTRANSFERASE 10 U/L (12-78); ALBUMIN 2.3 g/dL (3.4-5.0); ALCOHOL, BLOOD < 3 mg/dL (0-0); ALKALINE PHOSPHATASE 88 U/L (46-116); ASPARTATE AMINOTRANSFERASE 8 U/L (15-37); BILIRUBIN,DIRECT 0.1 mg/dL (0.0-0.2); BILIRUBIN,TOTAL 0.2 mg/dL (0.2-1.0)
[2017-06-19 16:47] LABS: ACETAMINOPHEN 0 ug/ml (10-30); SALICYLATE 1.5 mg/dL (2.8-20.0)
--- NOTE | 2017-06-19 17:00 | NUR ---
CALLED ART EXTENSION SUPERVISOR , HE SAID HE WOULD BE HERE SHORTLY.
[2017-06-19 17:22] LABS: APPEARANCE,URINE SLIGHTLY CLOUDY (CLEAR); BILIRUBIN,URINE NEGATIVE (NEGATIVE); BLOOD, URINE N Ery/uL (NEGATIVE); COLOR,URINE YELLOW (YELLOW); KETONES,URINE NEGATIVE (NEGATIVE); PROTEIN,URINE 1+ mg/dl (NEGATIVE); UGLUCOSE NEGATIVE (NEGATIVE); UROBILINOGEN,URINE 0.2 EU/dL (0.2)
[2017-06-19 17:23] LABS: LEUKOCYTE ESTERASE ,URINE 2+ (NEGATIVE); NITRITE, URINE NEGATIVE (NEGATIVE)
[2017-06-19 17:25] LABS: BACTERIA,URINE Moderate /HPF (None Seen); RBC,URINE NONE SEEN /HPF (0-2); SQUAMOUS EPITHELIAL CELL,UR Rare /HPF (None Seen)
[2017-06-19] MEDS ORDERED: SENN8.6T6 PO (20:18)
[2017-06-19] MEDS ORDERED: ALBU2.5V13 NEB (20:18)
[2017-06-19] MEDS ORDERED: IPRA0.2S49 NEB (20:18)
[2017-06-19] MEDS ORDERED: CRAN1CAP8 PO (20:18)
[2017-06-19] MEDS ORDERED: ZOLPIDEM TARTRATE 5 MG TABLET PO PRN (20:30)
[2017-06-19] MEDS ORDERED: Z GUARD REMEDY 4 OZ OINT TP PRN (20:30)
[2017-06-19] MEDS ORDERED: ACETAMINOPHEN 325 MG TABLET PO PRN (20:30)
[2017-06-19] MEDS ORDERED: CLONIDINE HCL 0.1 MG TABLET PO PRN (20:30)
[2017-06-19] MEDS ORDERED: MAG HYDROX/AL HYDROX/SIMETH 30 ML UDC PO PRN (20:30)
[2017-06-19] MEDS ORDERED: LORAZEPAM 0.5 MG TABLET PO PRN (20:30)
[2017-06-19] MEDS ORDERED: DEXTROSE 50%-WATER 50 ML DISP.SYRIN IV PRN (20:30)
[2017-06-19] MEDS ORDERED: MAGNESIUM HYDROXIDE 30 ML UDC PO PRN (20:30)
[2017-06-19] MEDS: Z GUARD REMEDY 4 OZ OINT TP SCH (21:12)
[2017-06-19] MEDS: SENNOSIDES 8.6 MG TABLET PO SCH (21:13)
[2017-06-19] MEDS: PANTOPRAZOLE 40 MG TABLET.DR PO SCH (21:14)
[2017-06-19] MEDS: FAMOTIDINE (20 MG) 20 MG TABLET PO SCH (21:14)
[2017-06-19] MEDS: BLOOD SUGAR DIAGNOSTIC 1 EACH STRIP IN SCH (22:23)
[2017-06-19] MEDS: INSULIN REGULAR, HUMAN 100 UNIT/ML 3 ML VIAL SQ PRN (22:25)
[2017-06-19] MEDS: SUCRALFATE 1 G/10 ML UDC PO SCH (22:26)
--- NOTE | 2017-06-19 23:44 | NUR ---
GPS RN ADMITTED NOTES ADMITTED THIS 87Y/O FEMALE FROM [facility] ER ,PT INITIALLY CAME FROM [facility] , PT. CAME TO THE UNIT VIA EL ACCOMPANIED ER STAFF PT. IS ON 5150 HOLD GRAVELY DISABLE, PER HOLD CONFUSED , DISORGNIZED , POOR HISTORAIN REFUSING CARE FLIGHT OF IDEAS ,UPON FACE TO FACE ASSESSMENT PT. A/O X1 , MENTAL HX OF DEPRESSION, ANXIETY MEDICAL HX OF HTN, DM , MUSCLE WEAKNESS , DYSPHAGIA, SKIN ASSESSMENT DONE SACRAL AREA REDNESS NOTED, PICTURE TAKEN AND PLACED IN THE CHART , NO ACUTE DISTRESS NOTED , DENIES ANY PAIN DISCOMFORT AT THIS TIME , MRSA SCREENING DONE IN ER ,BOTH MD AWARE OF NEW ADMISSION NEW ORDERS RECEIVED AND CARRIED OUT, REORIENT TO UNIT POLICES AND CONTRABAND CHECKS , WILL CONTINUE TO MONITOR FOR SAFETY AND BEHAVIOR
[2017-06-20 00:27] VITALS: BP 130/71
--- NOTE | 2017-06-20 06:41 | NUR ---
RN [facility] NOTES PATIENT RESTING IN HER BED, NO CHANGES IN STATUS. ALL NEEDS ATTENDED TO. WILL ENDORSE TO NEXT SHIFT FOR CONTINUITY CARE.
[2017-06-20] MEDS: BLOOD SUGAR DIAGNOSTIC 1 EACH STRIP IN SCH ×4 (07:30→21:50)
[2017-06-20 07:31] LABS: CHOLESTEROL 175 mg/dL (<200); HDL CHOLESTEROL 57 mg/dL (40-60); LDL 92 mg/dL (0-99); TRIGLYCERIDES 149 mg/dL (30-150)
[2017-06-20 07:50] LABS: CREATININE 1.3 mg/dL (0.6-1.3)
[2017-06-20] MEDS: METFORMIN 850 MG TABLET PO SCH ×2 (09:03→16:36)
[2017-06-20] MEDS: SUCRALFATE 1 G/10 ML UDC PO SCH ×4 (09:03→21:51)
[2017-06-20] MEDS: CHOLECALCIFEROL (VITAMIN D 3) 400 UNIT TABLET PO SCH (09:03)
[2017-06-20] MEDS: FERROUS SULFATE (325 MG) 325 MG/TAB TABLET PO SCH ×2 (09:03→16:37)
[2017-06-20] MEDS: VITAMIN B COMP W-C 1 TAB TABLET PO SCH (09:05)
[2017-06-20] MEDS: ASPIRIN EC 81 MG TABLET.DR PO SCH (09:05)
[2017-06-20] MEDS: PANTOPRAZOLE 40 MG TABLET.DR PO SCH ×2 (09:05→21:09)
[2017-06-20] MEDS: MULTIVIT, IRON, MIN NO. 8, FA 1 TAB PO SCH (09:05)
[2017-06-20] MEDS: FAMOTIDINE (20 MG) 20 MG TABLET PO SCH ×2 (09:05→21:09)
[2017-06-20] MEDS: Z GUARD REMEDY 4 OZ OINT TP SCH (09:05)
[2017-06-20] MEDS: METOPROLOL TARTRATE 25 MG TABLET PO SCH ×2 (09:05→16:37)
[2017-06-20] MEDS: LINAGLIPTIN 5 MG TABLET PO SCH (09:05)
[2017-06-20] MEDS: SENNOSIDES 8.6 MG TABLET PO SCH ×4 (09:06→21:09)
[2017-06-20 10:53] VITALS: BP 134/88
[2017-06-20] MEDS: INSULIN REGULAR, HUMAN 100 UNIT/ML 3 ML VIAL SQ PRN (12:30)
--- NOTE | 2017-06-20 13:23 | NUR ---
Initial Discharge Note: Patient resides at [facility] [address] [place] [address] ([phone]). sewage disposal worker spoke to Allyson from the facility who stated that patient can return to the facility upon discharge. sewage disposal worker spoke to patient's granddaughter Byron Serrano ([phone]) and she confirmed that she would like patient to return to [facility] upon discharge. sewage disposal worker attempted to contact patient's daughter Blanca Hutchinson ([phone]) However she was unavailable. sewage disposal worker left her a detailed message with her contact information. sewage disposal worker will attempt again later. sewage disposal worker will help form a safe and proper discharge.
[2017-06-20 16:00] VITALS: BP 114/60
[2017-06-20] MEDS: OLANZAPINE 5 MG/TAB.RAPDIS PO SCH (16:37)
[2017-06-20] MEDS ORDERED: OLANZAPINE 5 MG/TAB.RAPDIS PO SCH (17:00)
[2017-06-20 20:07] VITALS: BP 156/81
[2017-06-20 22:26] VITALS: BP 133/76
--- NOTE | 2017-06-21 06:23 | NUR ---
RN [facility] NOTES PATIENT RESTING IN HER BED, NO CHANGES IN STATUS. ALL NEEDS ATTENDED TO. WILL ENDORSE TO NEXT SHIFT FOR CONTINUITY CARE.
[2017-06-21 08:00] VITALS: BP 122/86
[2017-06-21] MEDS: SUCRALFATE 1 G/10 ML UDC PO SCH ×4 (08:46→21:42)
[2017-06-21] MEDS: FERROUS SULFATE (325 MG) 325 MG/TAB TABLET PO SCH ×2 (08:46→17:37)
[2017-06-21] MEDS: BLOOD SUGAR DIAGNOSTIC 1 EACH STRIP IN SCH ×4 (08:46→22:37)
[2017-06-21] MEDS: PANTOPRAZOLE 40 MG TABLET.DR PO SCH ×2 (08:47→21:42)
[2017-06-21] MEDS: FAMOTIDINE (20 MG) 20 MG TABLET PO SCH ×2 (08:47→21:43)
[2017-06-21] MEDS: LINAGLIPTIN 5 MG TABLET PO SCH (08:47)
[2017-06-21] MEDS: MULTIVIT, IRON, MIN NO. 8, FA 1 TAB PO SCH (08:47)
[2017-06-21] MEDS: SENNOSIDES 8.6 MG TABLET PO SCH ×4 (08:47→21:42)
[2017-06-21] MEDS: OLANZAPINE 5 MG/TAB.RAPDIS PO SCH ×2 (08:47→17:37)
[2017-06-21] MEDS: ASPIRIN EC 81 MG TABLET.DR PO SCH (08:47)
[2017-06-21] MEDS: METFORMIN 850 MG TABLET PO SCH ×2 (08:47→17:37)
[2017-06-21] MEDS: CHOLECALCIFEROL (VITAMIN D 3) 400 UNIT TABLET PO SCH (08:47)
[2017-06-21] MEDS: VITAMIN B COMP W-C 1 TAB TABLET PO SCH (08:47)
[2017-06-21] MEDS: METOPROLOL TARTRATE 25 MG TABLET PO SCH ×2 (08:48→17:38)
[2017-06-21] MEDS: Z GUARD REMEDY 4 OZ OINT TP SCH (08:49)
[2017-06-21] MEDS: INSULIN REGULAR, HUMAN 100 UNIT/ML 3 ML VIAL SQ PRN ×3 (09:14→18:13)
[2017-06-21 16:00] VITALS: BP 138/59
[2017-06-21 20:10] VITALS: BP 164/79
[2017-06-22 08:00] VITALS: BP 109/50
[2017-06-22] MEDS: BLOOD SUGAR DIAGNOSTIC 1 EACH STRIP IN SCH ×4 (08:22→22:40)
[2017-06-22] MEDS: INSULIN REGULAR, HUMAN 100 UNIT/ML 3 ML VIAL SQ PRN ×2 (08:39→09:12)
[2017-06-22] MEDS: VITAMIN B COMP W-C 1 TAB TABLET PO SCH (08:48)
[2017-06-22] MEDS: METFORMIN 850 MG TABLET PO SCH ×2 (08:48→16:10)
[2017-06-22] MEDS: FERROUS SULFATE (325 MG) 325 MG/TAB TABLET PO SCH ×2 (08:48→16:09)
[2017-06-22] MEDS: LINAGLIPTIN 5 MG TABLET PO SCH (08:48)
[2017-06-22] MEDS: FAMOTIDINE (20 MG) 20 MG TABLET PO SCH ×2 (08:48→22:05)
[2017-06-22] MEDS: MULTIVIT, IRON, MIN NO. 8, FA 1 TAB PO SCH (08:49)
[2017-06-22] MEDS: SUCRALFATE 1 G/10 ML UDC PO SCH ×4 (08:49→22:04)
[2017-06-22] MEDS: SENNOSIDES 8.6 MG TABLET PO SCH ×4 (08:49→22:04)
[2017-06-22] MEDS: OLANZAPINE 5 MG/TAB.RAPDIS PO SCH (08:49)
[2017-06-22] MEDS: PANTOPRAZOLE 40 MG TABLET.DR PO SCH ×2 (08:49→22:04)
[2017-06-22] MEDS: METOPROLOL TARTRATE 25 MG TABLET PO SCH ×2 (08:50→16:10)
[2017-06-22] MEDS: Z GUARD REMEDY 4 OZ OINT TP SCH (08:50)
[2017-06-22] MEDS: ASPIRIN EC 81 MG TABLET.DR PO SCH (08:50)
[2017-06-22] MEDS: CHOLECALCIFEROL (VITAMIN D 3) 400 UNIT TABLET PO SCH (08:50)
--- NOTE | 2017-06-22 10:29 | NUR ---
insulation worker furnace installer spoke to patient's daughter Blanca Hutchinson ([phone]) who confirmed that patient does reside an [facility] [address] [facility] [address] ([phone]). Patient's daughter also requested to speak to the assigned psychiatrist Dr. Grewal. insulation worker furnace installer informed Dr. Grewal. insulation worker furnace installer will follow-up.
[2017-06-22 16:00] VITALS: BP 123/61
[2017-06-22] MEDS ORDERED: OLANZAPINE 5 MG/TAB.RAPDIS PO SCH ×2 (17:00→22:00)
[2017-06-22] MEDS ORDERED: LEVOFLOXACIN (500MG) 500 MG TABLET PO SCH (17:00)
[2017-06-22 20:00] VITALS: BP 151/63
--- NOTE | 2017-06-22 20:00 | NUR ---
RECEIVED PATIENT IN ROOM LAYING IN BED AWAKE CONFUSE ON BED REST NO FACIAL GERMICIN NOTED NO RESPIRATORY DISTRESS NOTED PATIENT IS VERY CONFUSED TRYING TO GET OUT FROM BED.DANGLING THE FOOT FROM BED. ATIVAN 0.5MG ADMINISTERED TO THE PATIENT BY MOUTH FOR AGITATIONS.
--- NOTE | 2017-06-23 03:50 | NUR ---
WHEN MAKING ROUND FOUND PATIENT IS HAVING SEIZURES PAGED THE RAPID RESPONSE AND CALL THE MD AWAITING FOR ORDER.
--- NOTE | 2017-06-23 03:58 | NUR ---
RAPID RESPONSE TEAM CAME O2 SAT IN 3 LITTER O2 IS 99% BLOOD PRESSURE IS 160/110 HEART RATE IS 121 TEMP IS 98.1. STAT EKG IS DONE
[2017-06-23] MEDS ORDERED: LORAZEPAM INJ 2 MG/ML VIAL IV ONE (04:00)
--- NOTE | 2017-06-23 04:00 | NUR ---
DR. FISH CALLED BACK RECEIVED THE ORDER FOR ATIVAN 1MG IV PUSH AND ADMINISTERED TO THE PATIENT
[2017-06-23] MEDS ORDERED: LORAZEPAM INJ 2 MG/ML VIAL ONE (04:01)
--- NOTE | 2017-06-23 04:15 | NUR ---
ORDER CBC.CMP,BMP.TROPONIN, MAG.CHALO,TSH. STAT
--- NOTE | 2017-06-23 04:15 | NUR ---
PATIENT STILL SEIZING GIVE OTHER DOSE OF ATIVAN .05 MG IV PUSH BY ICU NURSE
--- NOTE | 2017-06-23 04:45 | NUR ---
TRANSFER PATIENT IN [facility] TELE UNIT PER DR. WALDRON
--- NOTE | 2017-06-23 04:52 | NUR ---
AFTER ATIVAN 2 MG ADMINISTERED TO THE PATIENT BY ICU NURSE PATIENT WAS STILL HAVING SEIZURE FOR 40 MINUTE CALL THE AND REANSFER THE PATIENT IN TELE UNIT.
[2017-06-23 05:22] LABS: CALCIUM, SERUM 9.4 mg/dL (8.5-10.1); CARBON DIOXIDE 27 mmol/L (21-32); CHLORIDE 98 mmol/L (98-107); CREATININE 1.2 mg/dL (0.6-1.3); GLUCOSE 221 mg/dL (74-106); POTASSIUM 4.6 mmol/L (3.5-5.1); SODIUM SERUM 133 mmol/L (136-145); UREA NITROGEN, BLOOD 30 mg/dL (7-18)
[2017-06-23 05:27] LABS: ALANINE AMINOTRANSFERASE 9 U/L (12-78); ALBUMIN 2.2 g/dL (3.4-5.0); ALKALINE PHOSPHATASE 89 U/L (46-116); ASPARTATE AMINOTRANSFERASE 9 U/L (15-37); BILIRUBIN,TOTAL 0.3 mg/dL (0.2-1.0); PHOSPHORUS 2.2 mg/dL (2.5-4.9); TOTAL PROTEIN, SERUM 6.7 g/dL (6.4-8.2)
[2017-06-23 05:28] LABS: TROPONIN I 0.023 ng/mL (0.00-0.056)
[2017-06-23 05:32] LABS: MAGNESIUM 0.6 mg/dL (1.8-2.4)
[2017-06-23 05:36] LABS: BASOPHILS % (AUTO) 0.3 % (0.0-2.0); EOSINOPHILS % (AUTO) 0.1 % (0.0-6.0); HEMATOCRIT 28 % (33-45); HEMOGLOBIN 8.8 g/dL (11.5-14.8); LYMPHOCYTES # (AUTO) 0.7 /CMM (0.8-4.8); LYMPHOCYTES % (AUTO) 6.6 % (20.0-44.0); MEAN CORPUSCULAR HEMOGLOBIN 25 PG (26.0-33.0); MEAN CORPUSCULAR HGB CONC 32 g/dl (31.0-36.0); MEAN CORPUSCULAR VOLUME 79 fL (82-100); MONOCYTES # (AUTO) 0.6 /CMM (0.1-1.30); MONOCYTES % (AUTO) 5.9 % (2.0-12.0); NEUTROPHILS # (AUTO) 8.9 /CMM (1.8-8.9); NEUTROPHILS % (AUTO) 87.1 % (43.0-81.0); PLATELET COUNT (AUTO) 512 /CMM (150-450); RDW COEFFICIENT OF VARIATION 16.4 (11.5-15.0); RED BLOOD CELL COUNT(AUTO) 3.51 MIL/uL (4.0-5.2); WHITE BLOOD COUNT (AUTO) 10.3 K/uL (4.3-11.0)
[2017-06-23] MEDS ORDERED: LEVO250T59 PO (07:43)
[2017-06-23] MEDS ORDERED: ZOLP5TAB7 PO (07:43)
[2017-06-23] MEDS ORDERED: MULT-659 PO (07:43)
[2017-06-23] MEDS ORDERED: ALLA266C2 TP (07:43)
[2017-06-23] MEDS ORDERED: LEVOFLOXACIN (250MG) 250 MG TABLET PO SCH (17:00)
== END 2017-06-23 04:44 | DRG 885 ==
LOC: ER 15:54 → GPS 18:53
PROVIDERS: ADMIT Psychiatry & Neurology Psychosomatic Medicine; ATTEND Psychiatry & Neurology Psychosomatic Medicine
DX: F29 Unspecified psychosis not due to a substance or known physiological condition (principal); F02.80 Dementia in other diseases classified elsewhere, unspecified severity, without behavioral disturbance, psychotic disturbance, mood disturbance, and anxiety; N18.3 Chronic kidney disease, stage 3 (moderate); G30.9 Alzheimer's disease, unspecified; D63.8 Anemia in other chronic diseases classified elsewhere; E11.22 Type 2 diabetes mellitus with diabetic chronic kidney disease; E78.5 Hyperlipidemia, unspecified; F32.9 Major depressive disorder, single episode, unspecified; F41.9 Anxiety disorder, unspecified; I12.9 Hypertensive chronic kidney disease with stage 1 through stage 4 chronic kidney disease, or unspecified chronic kidney disease; Z79.82 Long term (current) use of aspirin; Z79.84 Long term (current) use of oral hypoglycemic drugs; R13.10 Dysphagia, unspecified; Z88.0 Allergy status to penicillin; Z91.048 Other nonmedicinal substance allergy status
CPT/HCPCS: 36415; 80048-TC; 80053-TC; 80061-TC; 80076-TC; 80305; 81000-TC; 82565-TC; 82962-TC; 83735-TC; 84100-TC; 84443-TC; 84484-TC; 85025-TC; 87081-TC; 87086-TC; 92521; 97001-TC; A4606; G0480; J2060; Z7610

== ENCOUNTER 2017-06-23 04:45 | Inpatient (IN) | payer MEDICARE, OTHER ==
[~2017-06-23] VITALS: Ht 152.4 cm; Wt 51.7 kg
[~2017-06-23 04:45] MED LIST changes: +ALBU2.5V13 NEB; +CRAN1CAP8 PO; +IPRA0.2S49 NEB; +SENN8.6T6 PO
[2017-06-23 04:56] VITALS: BP 120/78
[2017-06-23] MEDS ORDERED: Magnesium 1GM/D5W 100ML PREMIX 200 ML IV ONE (05:47)
[2017-06-23] MEDS: Magnesium 1 GM/2 ML VIAL IV SCH ×4 (05:54→09:00)
[2017-06-23] MEDS ORDERED: Z GUARD REMEDY 2 OZ OINT TP PRN (06:00)
[2017-06-23] MEDS ORDERED: MAG HYDROX/AL HYDROX/SIMETH 30 ML UDC PO PRN (06:00)
[2017-06-23] MEDS ORDERED: ONDANSETRON HCL/PF 4 MG/2 ML VIAL IVP PRN (06:00)
[2017-06-23] MEDS ORDERED: MAGNESIUM HYDROXIDE 30 ML UDC PO PRN (06:00)
--- NOTE | 2017-06-23 06:17 | NUR ---
RN NOTES 0435AM- ADMITTED A 87 Y/O FEMALE PATIENT FROM [facility] TO TELE UNDER DR. WOODS DUE TO SEIZURE WITH HISTORY OF DEPRESSION, HTN, DM, DYSPHAGIA, CKD, AND MUSCLE WEAKNESS WITH ALLERGIES TO PENICILLIN, ADHESIVE TAPE. PT IS SEDATED AT THIS TIME LITTLE TWITCH IN HER EYES AND BODY STILL NOTED. NO ACUTE RESP DISTRESS. AFEBRILE. VS TAKEN TEMP 97.8 RESP 18 PULSE 106 BP 120/78 MMHG. SATING 97% IN O2 2LPM VIA NC. TELE MONITOR PLACED REVEALS SR HR 92 . SKIN INTACT. INCONTINENT CARE RENDERED.IV SITE ON LEFT HAND G 20 AND LFA G 20 INTACT AND PATENT. CALLED AND SPOKE TO MD REGARDING PT MAGNESIUM LEVEL 0.6 PER JEANNINE (LAB) WITH ORDER OF 4 BAGS OF MAGNESIUM NOTED AND CARRIED OUT. KEPT PT CLEAN AND DRY. MAGNESIUM STARTED. WILL ENDORSED CONTINUITY OF CARE TO AM NURSE.
--- NOTE | 2017-06-23 07:30 | NUR ---
RN NOTES RECEIVED PATIENT IN BED ASLEEP WITH BREATHING NORMAL, EVEN AND UNLABORED. NO SOB NOTED. NO ACUTE DISTRESS NOTED. TELE MONITOR REVEALS SR, HR=88. IV L HAND AND LFA ARE PATENT AND INTACT, NO INFILTRATION NOTED. BOWEL SOUND PRESENT. PULSES PRESENT. SITTER AT BEDSIDE. SAFETY MEASURE OBSERVED. CALL LIGHT WITH IN REACH. WILL CONT TO MONITOR.
[2017-06-23] MEDS ORDERED: ZOLP5TAB7 PO (07:43)
[2017-06-23] MEDS ORDERED: ALLA266C2 TP (07:43)
[2017-06-23] MEDS ORDERED: MULT-659 PO (07:43)
[2017-06-23] MEDS ORDERED: LEVO250T59 PO (07:43)
[2017-06-23 08:00] VITALS: BP 120/62
--- NOTE | 2017-06-23 08:45 | NUR ---
RN NOTES PATIENT NOTED WITH EPISODE OF SEIZURE. DR SMITH AT BEDSIDE. RECEIVED ORDER TO ADMINISTER 2MG IV ATIVAN ONCE. ORDER NOTED AND CARRIED OUT. WILL CONT TO MONITOR.
[2017-06-23] MEDS ORDERED: phenytoin SODIUM IV 1,000 MG in IV NS 0.9% 100 ML IV STA (08:50)
[2017-06-23] MEDS ORDERED: LORAZEPAM INJ 2 MG/ML VIAL IV ONE (09:00)
[2017-06-23] MEDS: Magnesium 1GM/D5W 100ML PREMIX 100 ML IV SCH ×2 (09:55→11:24)
[2017-06-23 10:25] LABS: CALCIUM, SERUM 9.3 mg/dL (8.5-10.1); CARBON DIOXIDE 28 mmol/L (21-32); CHLORIDE 99 mmol/L (98-107); CREATININE 1.1 mg/dL (0.6-1.3); GLUCOSE 189 mg/dL (74-106); POTASSIUM 4.2 mmol/L (3.5-5.1); SODIUM SERUM 134 mmol/L (136-145); UREA NITROGEN, BLOOD 31 mg/dL (7-18)
[2017-06-23 12:00] VITALS: BP 126/59
[2017-06-23] MEDS: PHENYTOIN SODIUM IV 50 MG/ML VIAL IV SCH ×2 (13:36→20:59)
[2017-06-23] MEDS ORDERED: DEXTROSE 50%-WATER 50 ML DISP.SYRIN IV PRN (14:30)
[2017-06-23] MEDS: IV D5/0.45 NACL 1,000 ML IV PRN (15:03)
[2017-06-23 16:00] VITALS: BP 110/54
[2017-06-23] MEDS: BLOOD SUGAR DIAGNOSTIC 1 EACH STRIP IN SCH ×2 (17:39→21:14)
[2017-06-23] MEDS: INSULIN REGULAR, HUMAN 100 UNIT/ML 3 ML VIAL SQ PRN ×2 (17:40→21:13)
--- NOTE | 2017-06-23 19:05 | NUR ---
RN NOTES PATIENT ENDORSED TO NEXT SHIFT IN STABLE CONDITION WITH BREATHING NORMAL, EVEN AND UNLABORED. NO SOB NOTED. KEPT CLEAN, DRY AND COMFORTABLE. ALL NEEDS ATTENDED. SAFETY MEASURE OBSERVED. CALL LIGHT WITH IN REACH. WILL CONT TO MONITOR.
[2017-06-23 20:00] VITALS: BP 139/58
--- NOTE | 2017-06-23 20:00 | NUR ---
[facility] RN NOTES RECEIVED PTS ON BED SLEEPING BUT EASILY AROUSE,ON TELE SR ON MONITOR . WITH 1:1 SITTER AT BEDSIDE , ALL NEEDS ATTENDED TOO CALL LIGHT WITHIN REACH , ALL DUE MEDS GIVEN ORDER, ON IVF OF D5 1/2 NS AT 80CC/HR INFUSING WELL . ON O2 AT 2 LITERS VIA NC SATING 99%.NO SEIZURE ACTIVITY NOTED AT THIS TIME , WILL CONTINUE TO MONITOR PTS.V/S STABLE AFEBRILE.
--- NOTE | 2017-06-23 21:35 | NUR ---
[facility] RN NOTES PTS BLOOD SUGAR FOR 10PM IS 146MG/DL =2 UNITS OF REGULAR INSULIN GIVEN PER SLIDING SCALE, PTS ON IV FLUIDS.
[2017-06-24] VITALS: BP 122/56
[2017-06-24] MEDS: IV D5/0.45 NACL 1,000 ML IV PRN ×2 (03:10→17:02)
[2017-06-24 04:00] VITALS: BP 123/78
[2017-06-24] MEDS: PHENYTOIN SODIUM IV 50 MG/ML VIAL IV SCH ×3 (06:21→22:12)
--- NOTE | 2017-06-24 07:15 | NUR ---
[facility] RN NOTE: RECEIVED PATIENT RESTING COMFORTABLY IN BED. PT IS NONVERBAL, RESPIRATIONS EVEN AND UNLABORED WITH NO SOB NOTED ON 2L O2 VIA NC. ON TELE WITH SR 71. LFA G #20 AND LH G #20 INTACT AND PATENT. BED LOW, LOCKED WITH CALL LIGHT WITHIN REACH. 1:1 SITTER AT BEDSIDE FOR SAFETY. ALL NEEDS MET AND ANTICIPATED. WILL CONT TO MONITOR.
--- NOTE | 2017-06-24 07:36 | NUR ---
[facility] RN NOTES PTS REMAINS ON 02 AT 2 LITERS VIA NC , PTS STILL SLEEPING BUT EASILY AROUSE, WITH 1:1 SITTER AT BEDSIDE , V/S STABLE AFEBRILE ,WILL ENDORSE TO RN DAY SHIFT FOR CONTINUITY OF CARE.
[2017-06-24 07:45] LABS: CHOLESTEROL 153 mg/dL (<200); HDL CHOLESTEROL 54 mg/dL (40-60); LDL 76 mg/dL (0-99); TRIGLYCERIDES 121 mg/dL (30-150)
[2017-06-24 08:00] VITALS: BP 100/51
[2017-06-24] MEDS: BLOOD SUGAR DIAGNOSTIC 1 EACH STRIP IN SCH ×4 (08:55→22:13)
[2017-06-24] MEDS: INSULIN REGULAR, HUMAN 100 UNIT/ML 3 ML VIAL SQ PRN ×3 (09:01→22:16)
[2017-06-24] MEDS ORDERED: GLYTROL 1,000 ML BAG GT PRN (11:30)
--- NOTE | 2017-06-24 11:30 | NUR ---
[facility] RN NOTE: NG PLACED. PT TOLERATED WELL. XR ORDERED FOR PLACEMENT VERIFICATION.
[2017-06-24 12:00] VITALS: BP 108/69
--- NOTE | 2017-06-24 12:03 | NUR ---
[facility] RN NOTE: XR AT BEDSIDE.
[2017-06-24 16:00] VITALS: BP 104/74
--- NOTE | 2017-06-24 16:29 | NUR ---
RN NOTE ADVANCED NGT 7.5CM.
[2017-06-24] MEDS: GLYTROL 1,000 ML BAG NG PRN (17:10)
--- NOTE | 2017-06-24 18:22 | NUR ---
[facility] RN NOTE: PATIENT REMAINED STABLE WITH NO SIGNIFICANT CHANGES DURING SHIFT. LH G 20 INTACT AND PATENT WITH D5 1/2NS RUNNING AT 80CC/HR. GLYTROL RUNNING AT 30CC/HR VIA NGT. ON TELE WITH SR IN LOW 90S. BED LOW, LOCKED WITH CALL LIGHT WITHIN REACH. ORDERS CARRIED OUT. 1:1 SITTER AT BEDSIDE. WILL ENDORSE TO FROZEN FOODS MANAGER NURSE FOR [facility].
[2017-06-24 20:00] VITALS: BP 128/63
[2017-06-25] VITALS (7 sets, daily range): BP systolic 102–172; BP diastolic 71–83
[2017-06-25] MEDS: IV D5/0.45 NACL 1,000 ML IV PRN ×2 (03:40→23:14)
[2017-06-25] MEDS: PHENYTOIN SODIUM IV 50 MG/ML VIAL IV SCH ×3 (05:25→20:39)
--- NOTE | 2017-06-25 08:00 | NUR ---
JAIME RN NOTE: RECEIVED PATIENT ,RESTING COMFORTABLY IN BED. PT IS NONVERBAL, RESPIRATIONS EVEN AND UNLABORED WITH ,NO SOB NOTED ,ON 2L O2 VIA NC. ON TELE WITH SR . RT HAND HL INTACT AND PATENT. BED LOWEST AND LOCKED POSITION ,WITH CALL LIGHT WITHIN REACH. 1:1 SITTER AT BEDSIDE FOR SAFETY.PATINT ON 52:50, ALL NEEDS MET AND ANTICIPATED. WILL CONT TO MONITOR, ON N G TUBE FEEDING ORDERED, ON IVF ORDERED
[2017-06-25 08:50] LABS: BASOPHILS % (AUTO) 0.2 % (0.0-2.0); EOSINOPHILS % (AUTO) 0.5 % (0.0-6.0); HEMATOCRIT 24 % (33-45); HEMOGLOBIN 7.6 g/dL (11.5-14.8); LYMPHOCYTES # (AUTO) 1.4 /CMM (0.8-4.8); LYMPHOCYTES % (AUTO) 13.5 % (20.0-44.0); MEAN CORPUSCULAR HEMOGLOBIN 25 PG (26.0-33.0); MEAN CORPUSCULAR HGB CONC 32 g/dl (31.0-36.0); MEAN CORPUSCULAR VOLUME 79 fL (82-100); MONOCYTES # (AUTO) 1.3 /CMM (0.1-1.30); MONOCYTES % (AUTO) 12.3 % (2.0-12.0); NEUTROPHILS # (AUTO) 7.5 /CMM (1.8-8.9); NEUTROPHILS % (AUTO) 73.5 % (43.0-81.0); PLATELET COUNT (AUTO) 430 /CMM (150-450); RDW COEFFICIENT OF VARIATION 16.5 (11.5-15.0); RED BLOOD CELL COUNT(AUTO) 3.01 MIL/uL (4.0-5.2); WHITE BLOOD COUNT (AUTO) 10.3 K/uL (4.3-11.0)
[2017-06-25] MEDS: INSULIN REGULAR, HUMAN 100 UNIT/ML 3 ML VIAL SQ PRN ×3 (09:43→21:18)
[2017-06-25] MEDS: BLOOD SUGAR DIAGNOSTIC 1 EACH STRIP IN SCH ×4 (09:45→21:20)
--- NOTE | 2017-06-25 09:53 | NUR ---
JAIME RN NOTE: RECEIVED PATIENT RESTING COMFORTABLY IN BED. PT IS NONVERBAL, RESPIRATIONS EVEN AND UNLABORED WITH NO SOB NOTED ON 2L O2 VIA NC. ON TELE WITH SR 7. RT HAND HL INTACT AND PATENT. BED LOWEST AND LOCKED POSITION ,WITH CALL LIGHT WITHIN REACH. 1:1 SITTER AT BEDSIDE FOR SAFETY. ALL NEEDS MET AND ANTICIPATED. WILL CONT TO MONITOR, ON N GTUBE FEEDING ORDERED, ON IVF ORDERED
--- NOTE | 2017-06-25 11:09 | NUR ---
JAIME RN NOTE BECOME MORE RESPONSE WHEN CALLING HER [place]PHON[place] ,ABLE TO OPEN BOTH EYES AND MUMBLE SOUNDS , DR FERNÁNDEZ AT BEDSIDE NOTIFIED THAT HG 7.6 NO ACTIVE BLEEDING NOTED , OK TO PLACE DVT PUMPS , ALSO NOTIFIED THAT BP 165/71 ,STATED THAT WILL CHECK IT OUT. ORDERED TO DECREASE RATED OF IVF TO 40 ML PERT HOUR
--- NOTE | 2017-06-25 15:30 | NUR ---
JAIME RN NOTE NOTED TWITCHING AND JERKING MOVEMENT OF UPPER ARMS , CALLED TO DR FERNÁNDEZ WITH ORDER TO CHECK MAG LEVEL, , INFORMED THAT 1.3 WITH ORDER TO GIVE 4 GM OF MAG , ORDER CARRIED OUT
[2017-06-25] MEDS: Magnesium 1GM/D5W 100ML PREMIX 100 ML IV SCH ×4 (16:30→20:23)
--- NOTE | 2017-06-25 17:14 | NUR ---
JAIME RN NOTE D\C HOLD 52:50 ,CONT ON MAG INFUSING ORDERED ,WILL CONT TO MONITOR CLOSELY
--- NOTE | 2017-06-25 19:10 | NUR ---
RN JAIME OPENING NOTES RECEIVED REPORT FROM HEIDI ERWIN. PATIENT AO X1 W/ MUMBLED SPEECH BUT UNABLE TO MAKE NEEDS KNOWN. OPENS EYES INTERMITTENTLY. NO S/S OF RESPIRATORY DISTRESS W/ 02 @ 2LPM VIA NC. ON TELE SINUS RHYTHM W/ PAC IN THE 70S. NGT INTACT AND PATENT W/ NGTF GLYTROL @ 30 ML/HR, PUT ON HOLD @ THIS TIME D/T DILANTIN ADMINISTRATION. NO RESIDUAL NOTED. RIGHT HAND IV #22 INTACT BUT OCCLUDED, WILL D/C. LEFT HAND IV #22 CDI W/ D5 1/2 NS @ 40 ML/HR AND MG 1G. DVT PUMPS IN PLACE. SEIZURE AND SAFETY PRECAUTIONS IN PLACE. SIDE RAILS UP AND PADDED, BED LOCKED AND IN LOWEST POSITION. WILL CONTINUE TO MONITOR.
[2017-06-25] MEDS: ACETAMINOPHEN 325 MG TABLET PO PRN (20:23)
[2017-06-26] VITALS: BP 159/87
[2017-06-26] MEDS: GLYTROL 1,000 ML BAG NG PRN (03:53)
[2017-06-26 04:00] VITALS: BP 154/84
[2017-06-26] MEDS: PHENYTOIN SODIUM IV 50 MG/ML VIAL IV SCH ×3 (05:08→21:24)
--- NOTE | 2017-06-26 07:00 | NUR ---
RN INITIAL NOTES PATIENT AO X1 W/ MUMBLED SPEECH BUT UNABLE TO MAKE NEEDS KNOWN. OPENS EYES INTERMITTENTLY. NO S/S OF RESPIRATORY DISTRESS W/ 02 @ 2LPM VIA NC. ON TELE SINUS RHYTHM W/ PAC . NGT INTACT AND PATENT W/ NGTF GLYTROL @ 60 ML/HR,NO RESIDUAL NOTED., DVT PUMPS IN PLACE. SEIZURE AND SAFETY PRECAUTIONS IN PLACE. SIDE RAILS UP AND PADDED, BED LOCKED AND IN LOWEST POSITION. WILL CONTINUE TO MONITOR. SCARAL REDNESS NOTED
[2017-06-26] MEDS: BLOOD SUGAR DIAGNOSTIC 1 EACH STRIP IN SCH ×4 (07:30→21:24)
[2017-06-26 08:00] VITALS: BP 157/73
--- NOTE | 2017-06-26 08:36 | NUR ---
WOUND CARE CONSULT: PT PRESENTS WITH BLANCHING REDNESS TO SACRAL AREA AND SOME STAINING OF SKIN. WILLIAM SCORE IS 12. RECOMMEND LOW AIRLOSS BED (JOSE ISOFLEX CYNTHIA). RECOMMENDATIONS MADE FOR SKIN PROTECTION. DISCUSSED WITH NURSING STAFF. WILL SEE PRN. NGUYEN IN AGREEMENT WITH PLAN OF CARE. Addendum: 06/26/17 at 0837 by GILDA MCKEON WNDNU Amended: Links added.
--- NOTE | 2017-06-26 08:47 | NUR ---
RN NOTE RN SPOKE WITH WOUND CONSULT NURSE , PER HER ORDERS RN SHOULD ORDER ISO FLEX MATTRESS. RN CONTACTED [employer] AND [facility] TO OBTAIN MATTRESS. EVS STATES THEY WILL TRY TO LOCATE A MATTRESS AND BRING IT TO THE JAIME.RN WILL CONTINUE TO FOLLOW
[2017-06-26] MEDS: INSULIN REGULAR, HUMAN 100 UNIT/ML 3 ML VIAL SQ PRN ×4 (09:00→21:26)
[2017-06-26 12:00] VITALS: BP 111/59
[2017-06-26 12:07] LABS: BASOPHILS % (AUTO) 0.3 % (0.0-2.0); EOSINOPHILS # (AUTO) 0.1 /CMM (0.0-0.7); EOSINOPHILS % (AUTO) 0.8 % (0.0-6.0); HEMATOCRIT 25 % (33-45); HEMOGLOBIN 8.1 g/dL (11.5-14.8); LYMPHOCYTES # (AUTO) 1.1 /CMM (0.8-4.8); LYMPHOCYTES % (AUTO) 10.6 % (20.0-44.0); MEAN CORPUSCULAR HEMOGLOBIN 26 PG (26.0-33.0); MEAN CORPUSCULAR HGB CONC 33 g/dl (31.0-36.0); MEAN CORPUSCULAR VOLUME 79 fL (82-100); MONOCYTES # (AUTO) 0.9 /CMM (0.1-1.30); MONOCYTES % (AUTO) 8.5 % (2.0-12.0); NEUTROPHILS # (AUTO) 7.9 /CMM (1.8-8.9); NEUTROPHILS % (AUTO) 79.8 % (43.0-81.0); PLATELET COUNT (AUTO) 517 /CMM (150-450); RDW COEFFICIENT OF VARIATION 15.5 (11.5-15.0); RED BLOOD CELL COUNT(AUTO) 3.15 MIL/uL (4.0-5.2)
[2017-06-26 16:00] VITALS: BP 146/84
--- NOTE | 2017-06-26 18:13 | NUR ---
JAIME RN CLOSING NOTE: PATIENT RESTING COMFORTABLY IN BED. RESPIRATIONS EVEN AND UNLABORED WITH NO SOB NOTED ON 2L O2 VIA NC THROUGHOUT THE SHIFT. ON TELE WITH SR. RT HAND IV INTACT AND PATENT SWOLLEN. BED LOWEST AND LOCKED POSITION ,WITH CALL LIGHT WITHIN REACH. ALL NEEDS MET AND ANTICIPATED. WILL CONT TO MONITOR, ON N GTUBE FEEDING ORDERED, IVF HELD DUE TO SWELLING OF LEFT HAND RN WILL ENDORSE TO PM NURSE
--- NOTE | 2017-06-26 19:15 | NUR ---
RN INITIAL NOTES RECEIVED PATIENT IN BED, SLEEPING COMFORTABLY. EASILY AROUSABLE WITH VERBAL AND TACTILE STIMULI. PATIENT ABLE TO MOUTH WORDS, INCOMPREHENSIBLE. NEEDS ANTICIPATED AND MET . PATIENT NOT IN ANY FORM OF DISTRESS. ON 2LPM OF O2 VIA NC, RESPIRATION IS EVEN AND UNLABORED WITH NO DISTRESS. SR ON TELE AT 84. NOTED WITH L HAND PIV SWELLING, INFILTRATION NOTED WITH FLUSHING, WILL INSERT NEW PIV. NGT ON R NARE, PLACEMENT VERIFIED WITH AUSCULTATION, NO GASTRIC RESIDUAL NOTED, FEEDING AT 60CC/HR GOAL PER DIETITIAN NOTES. HOB ELEVATED. NOTED WITH R AM SPASTIC, SEIZURE PRECUATIONS OBSERVED AT ALL TIMES. WILL MONITOR CLOSELY. PATIENT'S NEEDS ANTICIPATED AND MET. SAFETY AND COMFORT ENSURED. BED IN LOW AND LOCKED POSITION. WILL MONITOR CLOSELY.
[2017-06-26 20:00] VITALS: BP 143/63
--- NOTE | 2017-06-26 20:00 | NUR ---
RN NOTES MD NOTES REVIEWED, PER DR. FERNÁNDEZ, STOP IVF AND LABS TO BE DRAWN. IVF STOPPED AND CMP AND MG DRAWN. NO ADVERSE VALUES. WILL MONITOR CLOSELY.
[2017-06-26 20:36] LABS: ALANINE AMINOTRANSFERASE 11 U/L (12-78); ALBUMIN 1.9 g/dL (3.4-5.0); ALKALINE PHOSPHATASE 116 U/L (46-116); ASPARTATE AMINOTRANSFERASE 14 U/L (15-37); BILIRUBIN,TOTAL 0.2 mg/dL (0.2-1.0); CALCIUM, SERUM 8.9 mg/dL (8.5-10.1); CARBON DIOXIDE 26 mmol/L (21-32); CHLORIDE 98 mmol/L (98-107); CREATININE 0.9 mg/dL (0.6-1.3); GLUCOSE 227 mg/dL (74-106); MAGNESIUM 1.8 mg/dL (1.8-2.4); POTASSIUM 3.7 mmol/L (3.5-5.1); SODIUM SERUM 133 mmol/L (136-145); TOTAL PROTEIN, SERUM 6.2 g/dL (6.4-8.2); UREA NITROGEN, BLOOD 19 mg/dL (7-18)
[2017-06-26] MEDS ORDERED: DEXTROSE 50%-WATER 50 ML DISP.SYRIN IV PRN (23:00)
[2017-06-27] VITALS (8 sets, daily range): BP systolic 139–166; BP diastolic 47–91
[2017-06-27] MEDS: BLOOD SUGAR DIAGNOSTIC 1 EACH STRIP IN SCH ×5 (00:59→23:50)
--- NOTE | 2017-06-27 01:31 | NUR ---
RN NOTES PATIENT SLEEPING COMFORTABLY. NO DISTRESS. TOLERATING GTF WELL, NO RESIDUAL NOTED. BS NOTED TO BE 107. SAFETY AND COMFORT ENSURED.
[2017-06-27] MEDS: INSULIN REGULAR, HUMAN 100 UNIT/ML 3 ML VIAL SQ PRN ×3 (06:08→23:49)
[2017-06-27] MEDS: PHENYTOIN SODIUM IV 50 MG/ML VIAL IV SCH ×3 (06:08→20:52)
--- NOTE | 2017-06-27 06:51 | NUR ---
RN CLOSING NOTES PATIENT WITH NO DISTRESS AND NO ACUTE CHANGE IN CONDITION OBSERVED OVERNIGHT. REMAINS SR AT 84. 2LPM O2 VIA NC, NO DISTRESS. R NG REMAINS INTACT, TOLERATED FEEDING WELL, NO RESIDUAL. R WRIST G20, INTACT AND PATENT, NO SIGNS OF INFILTRATION. PATIENT KEPT CLEAN AND DRY. TURNED AND REPOSITIONED. NEEDS ANTICIPATED AND MET. SAFETY AND COMFORT ENSURED. BED IN LOW AND LOCKED POSITION. CALL LIGHT IN REACH. WILL ENDORSE ACCORDINGLY FOR CONTINUITY OF CARE.
--- NOTE | 2017-06-27 07:35 | NUR ---
RN NOTES RECEIVED PATIENT IN BED, SLEEPING COMFORTABLY. AROUSABLE TO VERBAL AND TACTILE STIMULI. ON 2LPM OF O2 VIA NC, RESPIRATIONS EVEN AND UNLABORED WITH NO DISTRESS NOTED. SR ON TELE AT HR AT 8O BPM. NOTED WITH L HAND AND FA WITH EDEMA, KEPT AFFECTED SITE ELEVATED. NGT ON R NARE, PLACEMENT VERIFIED WITH AUSCULTATION, NO GASTRIC RESIDUAL NOTED, ONGOING GTF GLYROL @60CC/HR. HOB ELEVATED. NOTED PT INVOLUNTARY TWITCHING, SEIZURE PRECAUTIONS OBSERVED AT ALL TIMES. PADDED SIDERAILS. WILL MONITOR CLOSELY. PATIENT'S NEEDS ANTICIPATED. REPOSITIONED FOR COMFORT, SAFETY MAINTAINED. CALL LIGHT WITHIN REACH, WILL CONTINUE TO MONITOR
[2017-06-27] MEDS: GLYTROL 1,000 ML BAG NG PRN (09:32)
--- NOTE | 2017-06-27 19:05 | NUR ---
RN OPENING NOTES RECEIVED REPORT FROM ALVARO ERWIN. PATIENT AO X1, AROUSABLE TO TACTILE STIMULI. NO S/S OF RESPIRATORY DISTRESS OR SOB, ON O2 @ 2LPM VIA NC. ON TELE SINUS RHYTHM W/ OCCASIONAL PVCS. SKIN WARM TO TOUCH, NOTED W/ LEFT HAND EDEMA. NG-TUBE INTACT AND PATENT W/ NGTF GLYTROL @ 60 ML/HR. TOLERATING WELL, NO RESIDUAL NOTED. RIGHT HAND IV #20 CDI, SALINE LOCK. SEIZURE PRECAUTIONS IN PLACE W/ PADDED SIDE RAILS. SAFETY MEASURES IN PLACE W/ SIDE RAILS UP, BED LOCKED AND IN LOWEST POSITION. CALL LIGHT WITHIN REACH. ALL NEEDS MET AND ANTICIPATED. WILL CONTINUE TO MONITOR.
[2017-06-27] MEDS: MAGNESIUM HYDROXIDE 30 ML UDC GT PRN (20:52)
[2017-06-27] MEDS: INSULIN DETEMIR 100 UNIT/ML CARTRIDGE SQ SCH (23:50)
[2017-06-28] VITALS (8 sets, daily range): BP systolic 150–168; BP diastolic 59–78
[2017-06-28] MEDS: BLOOD SUGAR DIAGNOSTIC 1 EACH STRIP IN SCH ×4 (06:04→23:38)
[2017-06-28] MEDS: INSULIN REGULAR, HUMAN 100 UNIT/ML 3 ML VIAL SQ PRN ×4 (06:05→23:39)
[2017-06-28] MEDS: PHENYTOIN SODIUM IV 50 MG/ML VIAL IV SCH ×3 (06:07→21:15)
[2017-06-28 06:42] LABS: BASOPHILS % (AUTO) 0.4 % (0.0-2.0); EOSINOPHILS % (AUTO) 0.2 % (0.0-6.0); HEMATOCRIT 25 % (33-45); HEMOGLOBIN 8.2 g/dL (11.5-14.8); LYMPHOCYTES # (AUTO) 1.6 /CMM (0.8-4.8); LYMPHOCYTES % (AUTO) 13.9 % (20.0-44.0); MEAN CORPUSCULAR HEMOGLOBIN 26 PG (26.0-33.0); MEAN CORPUSCULAR HGB CONC 32 g/dl (31.0-36.0); MEAN CORPUSCULAR VOLUME 79 fL (82-100); MONOCYTES # (AUTO) 1.4 /CMM (0.1-1.30); MONOCYTES % (AUTO) 11.9 % (2.0-12.0); NEUTROPHILS # (AUTO) 8.5 /CMM (1.8-8.9); NEUTROPHILS % (AUTO) 73.6 % (43.0-81.0); PLATELET COUNT (AUTO) 526 /CMM (150-450); RDW COEFFICIENT OF VARIATION 16.2 (11.5-15.0); WHITE BLOOD COUNT (AUTO) 11.6 K/uL (4.3-11.0)
[2017-06-28 07:09] LABS: CALCIUM, SERUM 8.8 mg/dL (8.5-10.1); CREATININE 0.9 mg/dL (0.6-1.3); GLUCOSE 156 mg/dL (74-106); MAGNESIUM 1.6 mg/dL (1.8-2.4); PHOSPHORUS 2.9 mg/dL (2.5-4.9); UREA NITROGEN, BLOOD 26 mg/dL (7-18)
--- NOTE | 2017-06-28 07:10 | NUR ---
RN CLOSING NOTES PATIENT SLEEPING IN BED. NO ACUTE RESPIRATORY DISTRESS NOTED THROUGHOUT SHIFT. REMAINED ON TELE SINUS RHYTHM IN THE 60S. NGTF TOLERATED WELL. PATIENT MORE AWAKE AND ALERT DURING SHIFT. ALL NEEDS MET, ALL DUE MEDS GIVEN. WILL ENDORSE DOUGLAS TO AM NURSE.
--- NOTE | 2017-06-28 07:15 | NUR ---
RN INITIAL NOTE PATIENT RECEIVED IN BED, SLEEPING. EASILY AROUSED. NO S/S OF PAIN OR DISCOMFORT. SINUS RHYTHM ON TELE MONITOR. RESPIRATIONS ARE EVEN AND UNLABORED. NO S/S OF RESPIRATORY DISTRESS OR SOB. SATING WELL ON 2L NASAL CANULA. NGT FLUSHED, PATENT. TUBE FEEDING ON HOLD DUE TO MEDICATION ADMINISTRATION. IV SITE FLUSHED, PATENT. SKIN IS WARM AND DRY TO TOUCH. SAFETY PRECAUTIONS IMPLEMENTED, BED IN LOCKED, LOW POSITION. TWO SIDE RAILS UP. WILL CONTINUE TO MONITOR CLOSELY.
[2017-06-28 07:31] LABS: CARBON DIOXIDE 21 mmol/L (21-32); CHLORIDE 107 mmol/L (98-107); POTASSIUM 4.9 mmol/L (3.5-5.1); SODIUM SERUM 139 mmol/L (136-145)
[2017-06-28] MEDS ORDERED: LORAZEPAM INJ 2 MG/ML VIAL IV STA (08:52)
[2017-06-28] MEDS: LEVETIRACETAM (500MG) 500 MG in IV NS 0.9% 100 ML IV SCH ×2 (09:58→20:14)
[2017-06-28] MEDS: DOCUSATE SODIUM 250 MG CAPSULE PO SCH (09:58)
[2017-06-28] MEDS: Magnesium 1GM/D5W 100ML PREMIX 100 ML IV SCH ×2 (11:55→13:37)
[2017-06-28] MEDS: GLYTROL 1,000 ML BAG NG PRN (16:03)
--- NOTE | 2017-06-28 19:05 | NUR ---
RN OPENING NOTES RECEIVED REPORT FROM NURIA David RN. PATIENT AO X1, AROUSABLE TO TACTILE STIMULI. NO S/S OF RESPIRATORY DISTRESS OR SOB, ON O2 @ 2LPM VIA NC. ON TELE SINUS RHYTHM IN THE 80S-90S. SKIN WARM TO TOUCH, NOTED W/ LEFT HAND EDEMA. NG-TUBE INTACT AND PATENT W/ NGTF GLYTROL @ 60 ML/HR. TOLERATING WELL, NO RESIDUAL NOTED. RIGHT HAND IV #20 CDI, TKO. SEIZURE PRECAUTIONS IN PLACE W/ PADDED SIDE RAILS. SAFETY MEASURES IN PLACE W/ SIDE RAILS UP, BED LOCKED AND IN LOWEST POSITION. CALL LIGHT WITHIN REACH. ALL NEEDS ANTICIPATED, WILL CONTINUE TO MONITOR.
[2017-06-28] MEDS: MAGNESIUM HYDROXIDE 30 ML UDC GT PRN (23:14)
[2017-06-28] MEDS: INSULIN DETEMIR 100 UNIT/ML CARTRIDGE SQ SCH (23:41)
[2017-06-29] VITALS: BP 141/83
[2017-06-29 04:00] VITALS: BP 151/58
[2017-06-29] MEDS: PHENYTOIN SODIUM IV 50 MG/ML VIAL IV SCH ×3 (05:58→20:26)
[2017-06-29] MEDS: BLOOD SUGAR DIAGNOSTIC 1 EACH STRIP IN SCH ×4 (06:18→23:46)
[2017-06-29] MEDS: INSULIN REGULAR, HUMAN 100 UNIT/ML 3 ML VIAL SQ PRN ×4 (06:21→23:48)
--- NOTE | 2017-06-29 07:16 | NUR ---
RN CLOSING NOTES PATIENT SLEEPING IN BED. NO ACUTE RESPIRATORY DISTRESS NOTED THROUGHOUT SHIFT. REMAINED ON TELE SINUS RHYTHM IN THE 60S. NGTF TOLERATED WELL W/ NO RESIDUAL NOTED. ALL NEEDS MET, ALL DUE MEDS GIVEN. SAFETY AND SEIZURE PRECAUTIONS IN PLACE W/ SIDE RAILS UP AND PADDED, BED LOCKED AND IN LOWEST POSITION. NO SIGNIFICANT CHANGES DURING SHIFT. WILL ENDORSE DOUGLAS TO AM NURSE.
--- NOTE | 2017-06-29 07:30 | NUR ---
RN NOTES PT A&OX1, RESTING IN BED, OPENS EYES TO NAME. ON NASAL CANNULA 2L NO SOB NOTED AT THIS TIME. SR ON THE MONITOR IN THE 80S. GLYTROL RUNNING AT 60ML VIA NGT. RIGHT WRIST IV SITE DRY AND INTACT. CALL LIGHT WITHIN REACH, BED LOCKED AND IN LOWEST POSITION, SIDE RAILS UPX3.
[2017-06-29 08:00] VITALS: BP 119/49
[2017-06-29] MEDS: DOCUSATE SODIUM 250 MG CAPSULE PO SCH (09:16)
[2017-06-29] MEDS: LEVETIRACETAM (500MG) 500 MG in IV NS 0.9% 100 ML IV SCH ×2 (09:16→20:26)
[2017-06-29 10:10] LABS: BASOPHILS # (AUTO) 0.1 /CMM (0.0-0.2); BASOPHILS % (AUTO) 0.6 % (0.0-2.0); EOSINOPHILS % (AUTO) 0.3 % (0.0-6.0); HEMATOCRIT 25 % (33-45); HEMOGLOBIN 8.1 g/dL (11.5-14.8); LYMPHOCYTES # (AUTO) 1.2 /CMM (0.8-4.8); LYMPHOCYTES % (AUTO) 10.6 % (20.0-44.0); MEAN CORPUSCULAR HEMOGLOBIN 25 PG (26.0-33.0); MEAN CORPUSCULAR HGB CONC 32 g/dl (31.0-36.0); MEAN CORPUSCULAR VOLUME 79 fL (82-100); MONOCYTES # (AUTO) 1.2 /CMM (0.1-1.30); MONOCYTES % (AUTO) 10.8 % (2.0-12.0); NEUTROPHILS # (AUTO) 8.4 /CMM (1.8-8.9); NEUTROPHILS % (AUTO) 77.7 % (43.0-81.0); PLATELET COUNT (AUTO) 534 /CMM (150-450); RDW COEFFICIENT OF VARIATION 16.3 (11.5-15.0); RED BLOOD CELL COUNT(AUTO) 3.21 MIL/uL (4.0-5.2); WHITE BLOOD COUNT (AUTO) 10.8 K/uL (4.3-11.0)
[2017-06-29 10:37] LABS: CALCIUM, SERUM 8.8 mg/dL (8.5-10.1); CARBON DIOXIDE 31 mmol/L (21-32); CHLORIDE 99 mmol/L (98-107); CREATININE 0.9 mg/dL (0.6-1.3); GLUCOSE 88 mg/dL (74-106); MAGNESIUM 1.8 mg/dL (1.8-2.4); PHOSPHORUS 2.7 mg/dL (2.5-4.9); POTASSIUM 4.5 mmol/L (3.5-5.1); SODIUM SERUM 133 mmol/L (136-145); UREA NITROGEN, BLOOD 24 mg/dL (7-18)
[2017-06-29 11:41] LABS: APPEARANCE,URINE TURBID (CLEAR); BILIRUBIN,URINE NEGATIVE (NEGATIVE); BLOOD, URINE 2+ Ery/uL (NEGATIVE); COLOR,URINE YELLOW (YELLOW); KETONES,URINE NEGATIVE (NEGATIVE); LEUKOCYTE ESTERASE ,URINE 3+ (NEGATIVE); NITRITE, URINE POSITIVE (NEGATIVE); PH,URINE 8.5 (5.0-8.0); PROTEIN,URINE 1+ mg/dl (NEGATIVE); UGLUCOSE NEGATIVE (NEGATIVE); UROBILINOGEN,URINE 0.2 EU/dL (0.2)
[2017-06-29 12:00] VITALS: BP 140/67
[2017-06-29 12:01] LABS: BACTERIA,URINE 2+ /HPF (None Seen); SQUAMOUS EPITHELIAL CELL,UR Few /HPF (None Seen); WBC,URINE TOO NUMEROUS TO COUN /HPF (0-3)
--- NOTE | 2017-06-29 14:10 | NUR ---
RN NOTES DR. CROUCH AT BEDSIDE, SPOKE TO FELICIA WALTERS ON THE PHONE. CONSENT VIA TELEPHONE FOR GTUBE PLACEMENT FOR TOMORROW OBTAINED. PER DR. CROUCH ORDER FOR NPO AFTER MIDNIGHT.
[2017-06-29 16:00] VITALS: BP 107/67
--- NOTE | 2017-06-29 16:00 | NUR ---
RN NOTES ULTRASOUND CALLED 3-4 TIMES FOR DOPPLER OF ARM, UNABLE TO GET A HOLD OF THEM.
--- NOTE | 2017-06-29 18:21 | NUR ---
RN NOTES PT RESTING COMFORTABLY IN BED NO SOB NOTED, TOLERATING TUBE FEEDING. NO SEIZURES WITNESSED THROUGHOUT THE SHIFT. NO SIGNIFICANT CHANGES. ORDER FOR NPO AFTER MIDNIGHT WILL BE PASSED DOWN TO ONCOMING SHIFT.
[2017-06-29 20:00] VITALS: BP 151/65
--- NOTE | 2017-06-29 20:00 | NUR ---
RN NOTES RECEIVED PATIENT RESTING COMFORTABLY IN BED, EYES CLOSE. NOTED WITH SPONTANEOUS RESPONSE TO PAIN. NO RESPIRATORY DISTRESS OR SHORTNESS OF BREATH. BREATHING EVEN AND UNLABORED. NO PHYSICAL MANIFESTATION OF PAIN OR DISCOMFORT. INCONTINENT OF BOWEL AND BLADDER FUNCTION. R WRIST PIV LINE PATENT AND INTACT. NO SIGN OR SYMPTOM OF INFILTRATION. WILL CONTINUE TO MONITOR.
[2017-06-29] MEDS: GLYTROL 1,000 ML BAG NG PRN (20:44)
[2017-06-29] MEDS: INSULIN DETEMIR 100 UNIT/ML CARTRIDGE SQ SCH (21:45)
[2017-06-30] VITALS (7 sets, daily range): BP systolic 139–155; BP diastolic 58–87
[2017-06-30] MEDS: PHENYTOIN SODIUM IV 50 MG/ML VIAL IV SCH (05:14)
[2017-06-30] MEDS: BLOOD SUGAR DIAGNOSTIC 1 EACH STRIP IN SCH ×4 (06:36→23:33)
[2017-06-30] MEDS: INSULIN REGULAR, HUMAN 100 UNIT/ML 3 ML VIAL SQ PRN ×4 (06:38→23:37)
--- NOTE | 2017-06-30 07:15 | NUR ---
SHEET LAYER INITIAL NOTES: REC'D PT ASLEEP ON BED, RESPONSIVE BY VERBAL & TACTILE STIMULI, NOT IN ANY DISTRESS. PT ON ROOM AIR, SATURATING 100%. ON TELEMONITOR, SR. HAS LFA G22 SL, FLUSHED, PATENT & INTACT W/ NO S/SX OF INFECTION/ INFILTRATION. HAS NGT ON RIGHT NARE INTACT, CLAMPED. KEPT NPO FOR NOW FOR EGD & PEG PLACEMENT. CONSENT AND PREOP CHECKLIST DONE. PROVIDED COMFORT & SAFETY MEASURES. CALL LIGHT PLACED W/IN REACH. BED KEPT LOW & IN LOCKED POS. WILL CONTINUE TO MONITOR.
--- NOTE | 2017-06-30 07:30 | NUR ---
RN CLOSING NOTES PATIENT IN BED RESTING COMFORTABLY WITH NO DISTRESS NOTED. NO PHYSICAL MANIFESTATION OF PAIN OR DISCOMFORT. CHANGE PIV LINE FROM RIGHT WRIST TO LEFT FA. PROCEDURE WELL TOLERATED. FOR EGD PLACEMENT WITH PEG. NPO MIDNIGHT. BS 183 AT 0600. WILL ENDORSE TO AM SHIFT FOR CONTINUITY OF CARE
[2017-06-30 07:31] LABS: BASOPHILS # (AUTO) 0.2 /CMM (0.0-0.2); BASOPHILS % (AUTO) 1.5 % (0.0-2.0); EOSINOPHILS # (AUTO) 0.1 /CMM (0.0-0.7); EOSINOPHILS % (AUTO) 0.5 % (0.0-6.0); HEMATOCRIT 26 % (33-45); LYMPHOCYTES # (AUTO) 1.2 /CMM (0.8-4.8); LYMPHOCYTES % (AUTO) 11.8 % (20.0-44.0); MEAN CORPUSCULAR HEMOGLOBIN 25 PG (26.0-33.0); MEAN CORPUSCULAR HGB CONC 31 g/dl (31.0-36.0); MEAN CORPUSCULAR VOLUME 79 fL (82-100); MONOCYTES # (AUTO) 1.2 /CMM (0.1-1.30); MONOCYTES % (AUTO) 11.3 % (2.0-12.0); NEUTROPHILS # (AUTO) 7.8 /CMM (1.8-8.9); NEUTROPHILS % (AUTO) 74.9 % (43.0-81.0); PLATELET COUNT (AUTO) 423 /CMM (150-450); RDW COEFFICIENT OF VARIATION 16.3 (11.5-15.0); RED BLOOD CELL COUNT(AUTO) 3.23 MIL/uL (4.0-5.2); WHITE BLOOD COUNT (AUTO) 10.5 K/uL (4.3-11.0)
[2017-06-30 07:45] LABS: CALCIUM, SERUM 8.8 mg/dL (8.5-10.1); CARBON DIOXIDE 28 mmol/L (21-32); CHLORIDE 99 mmol/L (98-107); CREATININE 0.8 mg/dL (0.6-1.3); GLUCOSE 180 mg/dL (74-106); MAGNESIUM 1.6 mg/dL (1.8-2.4); PHOSPHORUS 2.8 mg/dL (2.5-4.9); POTASSIUM 4.7 mmol/L (3.5-5.1); SODIUM SERUM 134 mmol/L (136-145); UREA NITROGEN, BLOOD 24 mg/dL (7-18)
[2017-06-30] MEDS: DOCUSATE SODIUM 250 MG CAPSULE PO SCH (08:12)
[2017-06-30] MEDS: LEVETIRACETAM (500MG) 500 MG in IV NS 0.9% 100 ML IV SCH (09:08)
[2017-06-30] MEDS: Magnesium 1GM/D5W 100ML PREMIX 100 ML IV SCH ×2 (10:54→15:39)
[2017-06-30] MEDS ORDERED: LEVOFLOXACIN 500 MG /D5W 100ML 500 MG in PREMIX 1 EA IV ONE (11:00)
--- NOTE | 2017-06-30 12:00 | NUR ---
RN NOTES: PT PICKED UP BY OR NURSES FOR EGD & PEG INSERTION PROCEDURE.
[2017-06-30] MEDS ORDERED: CLINDAMYCIN 900 MG/6 ML VIAL ONE (12:44)
[2017-06-30] MEDS: PHENYTOIN EXTENDED RELEASE 100 MG CAPSULE PO SCH ×2 (13:00→20:55)
--- NOTE | 2017-06-30 13:35 | NUR ---
RN NOTES: PT CAME BACK FROM OR S/P EGD & G TUBE INSERTION. SITE CHECKED, CLEAN, DRY & INTACT. CARRIED OUT WRITTEN ORDERS OF DR. DUMONT.
--- NOTE | 2017-06-30 18:51 | NUR ---
APPRENTICE PHOTOGRAPHER CLOSING NOTES: NO ACUTE CHANGES NOTED W/IN SHIFT. PT TOLERATED NC AT 2LPM, SATURATING 100%. ON TELEMONITOR, STILL SR. R WRIST G22 SL, KEPT PATENT & INTACT W/ NO S/SX OF INFECTION/ INFILTRATION. G-TUBE KEPT IN PLACE, CLAMPED. KEPT WELL RESTED. NEEDS ATTENDED. CALL LIGHT PLACED W/IN REACH. BED KEPT LOW & IN LOCKED POS. WILL ENDORSE TO PM RN FOR DOUGLAS.
[2017-06-30] MEDS: LEVETIRACETAM SOL (5 ML) 100 MG/ML UDC GT SCH (20:55)
[2017-06-30] MEDS: ACETAMINOPHEN 325 MG TABLET PO PRN (20:55)
[2017-06-30] MEDS: INSULIN DETEMIR 100 UNIT/ML CARTRIDGE SQ SCH (23:37)
[2017-07-01] VITALS: BP 138/62
[2017-07-01 04:00] VITALS: BP 133/82
[2017-07-01] MEDS: GLYTROL 1,000 ML BAG NG PRN (05:04)
[2017-07-01] MEDS: BLOOD SUGAR DIAGNOSTIC 1 EACH STRIP IN SCH ×3 (05:04→17:47)
[2017-07-01] MEDS: PHENYTOIN EXTENDED RELEASE 100 MG CAPSULE PO SCH ×2 (05:04→12:37)
--- NOTE | 2017-07-01 07:18 | NUR ---
HOT AIR FURNACE INSTALLER AND REPAIRER INITIAL NOTES: REC'D PT ASLEEP ON BED, RESPONSIVE BY VERBAL & TACTILE STIMULI, NOT IN ANY DISTRESS. PT ON O2 AT 2LPM/NC, SATURATING 96%. ON TELEMONITOR, SR. HAS R WRIST G22 SL, FLUSHED, PATENT & INTACT W/ NO S/SX OF INFECTION/ INFILTRATION. HAS G TUBE IN PLACE, ON CONTINUOUS TUBE FEEDING GLYTROL X 60 CC/HR INFUSING WELL. PROVIDED COMFORT & SAFETY MEASURES. CALL LIGHT PLACED W/IN REACH. BED KEPT LOW & IN LOCKED POS. WILL CONTINUE TO MONITOR.
[2017-07-01 08:00] VITALS: BP 112/61
[2017-07-01] MEDS: LEVETIRACETAM SOL (5 ML) 100 MG/ML UDC GT SCH (08:08)
[2017-07-01] MEDS: DOCUSATE SODIUM 250 MG CAPSULE PO SCH (08:09)
[2017-07-01] MEDS ORDERED: LEVOFLOXACIN 250 MG /D5W 50 ML 250 MG in PREMIX 1 EA IV SCH (11:00)
[2017-07-01] MEDS: INSULIN REGULAR, HUMAN 100 UNIT/ML 3 ML VIAL SQ PRN ×2 (11:19→17:47)
[2017-07-01] MEDS ORDERED: LEVE100S GT (11:29)
[2017-07-01] MEDS ORDERED: PHEN100C4 PO (11:29)
[2017-07-01] MEDS ORDERED: NUT.100029 NG (11:29)
[2017-07-01 12:00] VITALS: BP 141/61
--- NOTE | 2017-07-01 13:05 | NUR ---
RN NOTES: PER DUPLEX VENOUS REPORT C/O KENZIE, PT IS POSITIVE FOR DVT ON LEFT BRACHIAL W/ ORDERS TO START PT ON ELIQUIS 2.5 MG BID G-TUBE. DAUGHTER MADE AWARE.
[2017-07-01] MEDS ORDERED: APIX2.5T GT (13:19)
--- NOTE | 2017-07-01 14:00 | NUR ---
RN NOTES: REPORT GIVEN TO ALDEN AT [facility] [phone]. MADE RN AWARE THAT PT CAME OUT POSITIVE FOR DVT ON LEFT BRACHIAL & THAT PT IS ORDERED TO START ELIQUIS 2.5 MG GT BID. PT'S DAUGHTER ROMEO MADE AWARE OF THE DUPLEX RESULT AND UPDATED ABOUT DC.
[2017-07-01 16:00] VITALS: BP 134/61
--- NOTE | 2017-07-01 19:11 | NUR ---
HUNTER GUIDESAP PROJECT MANAGER NOTES: PT DC'D TO [facility] ORDERED. DC INSTRUCTIONS & DOCUMENTS GIVEN TO MEDRESPONSE EMT. GT TUBE KEPT PATENT & INTACT, FLUSHED TUBE. IV ACCESS REMOVED, PRESSURE DRESSING APPLIED, NO INFECTION NOTED. STILL W/ EDEMA NOTED ON RUE & L FOOT. WOUND PICTURES TAKEN. WOUND CARE DONE. ID BAND REMOVED. ALL BELONGINGS W/ PT. PT LEFT FACILITY IN STABLE CONDITION VIA GURNEY. NO CONCERNS IDENTIFIED AT THIS TIME.
== END 2017-07-01 19:00 | DRG 100 ==
LOC: TELE1 04:45 → TELE-TD 12:07 → TELE1 06-27 11:15
PROVIDERS: ADMIT Psychiatry & Neurology Psychosomatic Medicine; ATTEND Internal Medicine
PROC: 0DH63UZ Insertion of Feeding Device into Stomach, Percutaneous Approach (ICD-10-PCS; principal; 2017-06-30 12:47)
DX: G40.901 Epilepsy, unspecified, not intractable, with status epilepticus (principal); N17.0 Acute kidney failure with tubular necrosis; E46 Unspecified protein-calorie malnutrition; R13.10 Dysphagia, unspecified; E11.22 Type 2 diabetes mellitus with diabetic chronic kidney disease; E83.42 Hypomagnesemia; N39.0 Urinary tract infection, site not specified; G30.9 Alzheimer's disease, unspecified; F02.80 Dementia in other diseases classified elsewhere, unspecified severity, without behavioral disturbance, psychotic disturbance, mood disturbance, and anxiety; I12.9 Hypertensive chronic kidney disease with stage 1 through stage 4 chronic kidney disease, or unspecified chronic kidney disease; N18.9 Chronic kidney disease, unspecified; E78.5 Hyperlipidemia, unspecified; Z88.0 Allergy status to penicillin; D63.8 Anemia in other chronic diseases classified elsewhere; F29 Unspecified psychosis not due to a substance or known physiological condition; F32.9 Major depressive disorder, single episode, unspecified; Z86.73 Personal history of transient ischemic attack (TIA), and cerebral infarction without residual deficits; K59.00 Constipation, unspecified; D50.9 Iron deficiency anemia, unspecified; Z68.22 Body mass index [BMI] 22.0-22.9, adult; B96.89 Other specified bacterial agents as the cause of diseases classified elsewhere
CPT/HCPCS: 36415; 70450-TC; 71010-TC; 80048-TC; 80053-TC; 80061-TC; 80185-TC; 81000-TC; 82947-TC; 82962-TC; 83735-TC; 84100-TC; 85025-TC; 87086-TC; 87186-TC; 92526; 92611-TC; 93971-TC; 95819-TC; A4216; A4217; A6402; A6403; J1165; J1815; J1953; J1956; J2060; J3475; J3490; J7030; J7050

== ENCOUNTER 2017-07-13 10:39 | Inpatient (IN) | payer MEDICARE, OTHER ==
[~2017-07-13] VITALS: Ht 152.4 cm; Wt 54.1 kg
[~2017-07-13 10:39] MED LIST changes: +ACET-868 GT; -ACET-868 PO; +ALLA266C2 TP; +AMIN30LI4 GT; -AMIN30LI4 PO; +CLON0.1T GT; -CLON0.1T PO; +FAMO20TA8 GT; -FAMO20TA8 PO; +HYDR-548 GT; -HYDR-548 PO; +LEVE100S GT; +LEVO250T59 PO; +LINA5TAB GT; -LINA5TAB PO; +LORA0.5T GT; -LORA0.5T PO; +MAG30ORA GT; -MAG30ORA PO; +MAGN400O6 GT; -MAGN400O6 PO; +METF850T2 GT; -METF850T2 PO; +METO25TA6 GT; -METO25TA6 PO; +MULT-659 GT; -MULT1TAB11 PO; -NITR100C15 PO; +NUT.100029 NG; +PHEN100C4 PO; +SENN8.6T6 GT; -SENN8.6T6 PO; +VITA1CAP GT; -VITA1CAP PO; +ZOLP5TAB7 GT; -ZOLP5TAB7 PO
--- NOTE | 2017-07-13 10:45 | NUR ---
BIBRA FROM SNF C/O SOB AND MORE ALTERED THAN USUAL. RVPEA=836.5 RECTAL TEMP. RESP IS EVEN AND UNLABORED WITH NAD NOTED. PLACED ON MONITOR. WILL CONTINUOUSLY MONITOR THE PATIENT. AWAITING MD FOR EVAL.
[2017-07-13] MEDS ORDERED: AZTREONAM 2 G in IV NS 0.9% 100 ML IV ONE (11:00)
[2017-07-13] MEDS ORDERED: IV NS 0.9% 1,000 ML BAG IV ONE ×2 (11:00→14:00)
[2017-07-13] MEDS ORDERED: VANCOMYCIN 1 GM in IV D5W 250 ML IV ONE ×2 (11:00→14:00)
[2017-07-13] MEDS ORDERED: LEVOFLOXACIN 750 MG /D5W 150ML 150 ML IV ONE (11:00)
[2017-07-13 11:11] LABS: BASOPHILS # (AUTO) 0.4 /CMM (0.0-0.2); BASOPHILS % (AUTO) 1.9 % (0.0-2.0); EOSINOPHILS # (AUTO) 0.1 /CMM (0.0-0.7); EOSINOPHILS % (AUTO) 0.3 % (0.0-6.0); HEMATOCRIT 23 % (33-45); HEMOGLOBIN 7.5 g/dL (11.5-14.8); LYMPHOCYTES # (AUTO) 1.3 /CMM (0.8-4.8); LYMPHOCYTES % (AUTO) 5.9 % (20.0-44.0); MEAN CORPUSCULAR HEMOGLOBIN 25 PG (26.0-33.0); MEAN CORPUSCULAR HGB CONC 33 g/dl (31.0-36.0); MEAN CORPUSCULAR VOLUME 78 fL (82-100); MONOCYTES # (AUTO) 1.6 /CMM (0.1-1.30); MONOCYTES % (AUTO) 7.2 % (2.0-12.0); NEUTROPHILS # (AUTO) 19.5 /CMM (1.8-8.9); NEUTROPHILS % (AUTO) 84.7 % (43.0-81.0); PLATELET COUNT (AUTO) 784 /CMM (150-450); RDW COEFFICIENT OF VARIATION 15.3 (11.5-15.0); RED BLOOD CELL COUNT(AUTO) 2.94 MIL/uL (4.0-5.2); WHITE BLOOD COUNT (AUTO) 22.9 K/uL (4.3-11.0)
[2017-07-13] MEDS ORDERED: ACID1TAB12 GT (11:12)
[2017-07-13] MEDS ORDERED: NUT.100029 GT (11:12)
[2017-07-13] MEDS ORDERED: ONDA-25 GT (11:12)
[2017-07-13] MEDS ORDERED: FERR300L GT (11:12)
[2017-07-13] MEDS ORDERED: IPRA0.2S9 IH (11:12)
[2017-07-13] MEDS ORDERED: ASPI81TA2 GT (11:12)
[2017-07-13] MEDS ORDERED: APIX2.5T GT (11:12)
[2017-07-13] MEDS ORDERED: CHOL100044 GT (11:12)
[2017-07-13] MEDS ORDERED: PANT40SU2 GT (11:12)
[2017-07-13] MEDS ORDERED: OLAN5TAB6 SL (11:12)
[2017-07-13] MEDS ORDERED: ASCO500S2 GT (11:12)
[2017-07-13] MEDS ORDERED: PHEN100O4 GT (11:12)
[2017-07-13] MEDS ORDERED: SUCR1ORA2 GT (11:12)
[2017-07-13] MEDS ORDERED: LEVE100S GT (11:12)
[2017-07-13 11:21] LABS: CALCIUM, SERUM 9.5 mg/dL (8.5-10.1); CARBON DIOXIDE 26 mmol/L (21-32); CHLORIDE 97 mmol/L (98-107); CREATININE 1.7 mg/dL (0.6-1.3); GLUCOSE 257 mg/dL (74-106); POTASSIUM 4.9 mmol/L (3.5-5.1); SODIUM SERUM 133 mmol/L (136-145); UREA NITROGEN, BLOOD 73 mg/dL (7-18)
[2017-07-13 11:25] LABS: INR 1.01 (0.87-1.13); PROTHROMBIN TIME 10.5 SECS (9.5-12.7)
[2017-07-13 11:27] LABS: ALANINE AMINOTRANSFERASE 13 U/L (12-78); ALBUMIN 1.8 g/dL (3.4-5.0); ALKALINE PHOSPHATASE 136 U/L (46-116); ASPARTATE AMINOTRANSFERASE 26 U/L (15-37); BILIRUBIN,DIRECT 0.1 mg/dL (0.0-0.2); BILIRUBIN,TOTAL 0.2 mg/dL (0.2-1.0); TOTAL PROTEIN, SERUM 6.4 g/dL (6.4-8.2)
[2017-07-13 11:29] LABS: TROPONIN I 0.027 ng/mL (0.00-0.056)
[2017-07-13 11:37] LABS: ABG BASE EXCESS -0.5 mmol/L; ABG PCO2 38.4 mmHg (35.0-45.0); ABG PH 7.414 (7.350-7.450); ABG PO2 179.2 mmHg (75.0-100.0); AaDO2 32.9 mmHg; COHb 1.2 % (0.5-1.5); MetHb 0.7 % (0.0-1.5); O2Hb 97.1 % (94.0-97.0); SITE, ABG Left Radial; VENT MODE, BG NASAL CANNULA
[2017-07-13] MEDS ORDERED: ACETAMINOPHEN 650 MG/SUPP.RECT RC ONE ×2 (12:00→12:07)
[2017-07-13] MEDS ORDERED: IV NS 0.9% 500 ML BAG IV ONE (12:00)
[2017-07-13 12:03] LABS: APPEARANCE,URINE Cloudy (CLEAR); BILIRUBIN,URINE Negative (NEGATIVE); BLOOD, URINE Small Ery/uL (NEGATIVE); COLOR,URINE Light yellow (YELLOW); KETONES,URINE Negative (NEGATIVE); LEUKOCYTE ESTERASE ,URINE Moderate (NEGATIVE); NITRITE, URINE Positive (NEGATIVE); PROTEIN,URINE 30 mg/dl (NEGATIVE); UGLUCOSE Negative (NEGATIVE); UROBILINOGEN,URINE 0.2 EU/dL (0.2)
--- NOTE | 2017-07-13 12:07 | NUR ---
LACTIC ACID 4.9 PER LAB, RELAYED TO
[2017-07-13 12:09] LABS: BACTERIA,URINE Moderate /HPF (None Seen); SQUAMOUS EPITHELIAL CELL,UR Few /HPF (None Seen); WBC,URINE 51-80 /HPF (0-3)
--- NOTE | 2017-07-13 12:18 | NUR ---
DR LARY JAMA AT BS FOR EVAL.
--- NOTE | 2017-07-13 12:46 | NUR ---
REPORT GIVEN TO YAIMA SARGENT FOR DOUGLAS TELE 114-1
[2017-07-13 14:00] VITALS: BP 102/53
[2017-07-13] MEDS ORDERED: ALBUTEROL FS 2.5 MG/0.5 ML VIAL.NEB NEB PRN (14:00)
[2017-07-13] MEDS ORDERED: IPRATROPIUM NEB FS 0.5 MG/2.5 ML AMPUL.NEB IH PRN (14:00)
[2017-07-13] MEDS ORDERED: HYDROCODONE/APAP 10/325MG 1 EA TABLET GT PRN (14:00)
[2017-07-13] MEDS ORDERED: DEXTROSE 50%-WATER 50 ML DISP.SYRIN IV PRN (14:00)
[2017-07-13] MEDS ORDERED: LORAZEPAM 0.5 MG TABLET GT PRN (14:00)
[2017-07-13] MEDS ORDERED: MAGNESIUM HYDROXIDE 30 ML UDC GT PRN (14:00)
[2017-07-13] MEDS ORDERED: ONDANSETRON HCL/PF 4 MG/2 ML VIAL IVP PRN (14:00)
[2017-07-13] MEDS ORDERED: CLONIDINE HCL 0.1 MG TABLET GT PRN (14:00)
[2017-07-13] MEDS ORDERED: MAG HYDROX/AL HYDROX/SIMETH 30 ML UDC GT PRN (14:00)
--- NOTE | 2017-07-13 14:00 | NUR ---
RN NOTE RECEIVED PT ON BED, DROWSY, NO VERBAL RESPONSE, OPENS YES, ON NC O2 AT 2L/MIN, G TUBE IN PLACE, CLAMPED, ON TELEMETRY SR, NO SOB, VS STABLE, NO FEVER, SACRAL WOUND NOTED, BUE EDEMA NOTED, IV LEFT AC 18 G, SAFETY MEASURES MAINTAINED, CALL LIGHT WITHIN REACH, WILL ADMIT AND FOLLOW UP WITH MD.
[2017-07-13] MEDS ORDERED: FEE PK DOSING 1 MIN EA MC ONE (14:45)
[2017-07-13 15:43] LABS: ALBUMIN 1.5 g/dL (3.4-5.0); BILIRUBIN,TOTAL 0.1 mg/dL (0.2-1.0); TOTAL PROTEIN, SERUM 5.5 g/dL (6.4-8.2)
[2017-07-13 15:44] LABS: IRON, SERUM 19 ug/dl (50-175); TOTAL IRON BINDING CAPACITY 172 ug/dl (250-450)
[2017-07-13 16:00] VITALS: BP 116/62
[2017-07-13] MEDS ORDERED: METFORMIN 850 MG TABLET GT SCH (17:00)
[2017-07-13] MEDS: SUCRALFATE 1 G/10 ML UDC GT SCH ×2 (17:12→21:10)
[2017-07-13] MEDS: methylPREDNISolone SOD SUCC 125 MG/2ML VIAL IV SCH ×2 (17:13→21:11)
[2017-07-13] MEDS: APIXABAN 2.5 MG TABLET GT SCH (17:14)
[2017-07-13] MEDS: ACIDOPHILUS/BULGARICUS 1 EACH TAB.CHEW GT SCH (17:14)
[2017-07-13] MEDS: SENNOSIDES 8.6 MG TABLET GT SCH ×2 (17:15→21:11)
[2017-07-13] MEDS: PROSOURCE / PROSTAT (PYXIS) 30 ML UDC GT SCH (17:15)
[2017-07-13] MEDS: METOPROLOL TARTRATE 25 MG TABLET GT SCH (17:15)
[2017-07-13] MEDS: BLOOD SUGAR DIAGNOSTIC 1 EACH STRIP IN SCH ×2 (17:17→23:34)
[2017-07-13] MEDS ORDERED: PIPERACILLIN /TAZOBACTAM 3.375 G in IV D5W 50 ML IV SCH (18:00)
[2017-07-13] MEDS ORDERED: BLOOD SUGAR DIAGNOSTIC 1 EACH STRIP IN SCH (18:00)
--- NOTE | 2017-07-13 19:25 | NUR ---
RN OPENING NOTES: RECEIVED PT ON BED ASLEEP, DIFFICULT TO AROUSE, ONLY TO PAINFUL STIMULI AND MOANS TO PAIN, WITH INCOMPREHENSIBLE SPEECH. ON O2 VIA NC TOLERATED WELL, NOT IN APPARENT DISTRESS. SR ON MONITOR HR AT 80'S WITH OCCASIONAL PVC'S. IV ACCESS ON RFA G22 INTACT AND PATENT. NOTED WITH BUE EDEMA, ELEVATED BUE'S. GT INTACT, PATENCY CHECKED, TO START PATIENT ON FEEDING ORDERED. SAFETY MEASURES ENSURED. SKIN CARE RENDERED PT INCONTINENT AND ON DIAPER. 1999 SPOKE TO PATIENT'S DAUGHTER ROMEO AT BEDSIDE, PER HER SHE CAN CONSIDER THAT SHE IS MORE RESPONSIVE NOW THAN SHE WAS PRIOR SHE CAN OPEN HER EYES AND ATTEMPTS TO VERBALIZE. TO CONTINUE TO MONITOR MENTAL STATUS. 2029 SPOKE TO J.G. ink SNUFF BOX FINISHER, DR BRADOFRD RELAYED PATIENT'S CURRENT LACTIC LEVELS AND IF REQUIRES CONTINUOUS IVF. WITH ORDERS TO DO ANOTHER NS BOLUS AT 500CC AND REPEAT LACTIC ON AM. TO START PATIENT ON NS AT 100CC/HR AFTER BOLUS GIVEN. NOTED AND CARRIED OUT. TO CONTINUE TO MONITOR PATIENT.
[2017-07-13 20:00] VITALS: BP 125/48
[2017-07-13] MEDS ORDERED: IV NS 0.9% 1,000 ML BAG IV PRN (21:00)
[2017-07-13] MEDS ORDERED: IV NS 0.9% 500 ML IV ONE (21:00)
[2017-07-13] MEDS: PHENYTOIN SUSP UDC 100 MG/4 ML UDC GT SCH (21:11)
[2017-07-13] MEDS: LEVETIRACETAM SOL (5 ML) 100 MG/ML UDC GT SCH (21:11)
[2017-07-13] MEDS: PANTOPRAZOLE 40 MG/PACK PACK GT SCH (21:11)
[2017-07-13] MEDS: AZTREONAM 1 G in IV NS 0.9% 100 ML IV SCH (21:38)
[2017-07-13] MEDS: INSULIN REGULAR, HUMAN 100 UNIT/ML 3 ML VIAL SQ PRN (23:38)
[2017-07-13] MEDS: GLYTROL 1,000 ML BAG GT SCH (23:40)
[2017-07-14] VITALS (14 sets, daily range): BP systolic 109–138; BP diastolic 48–84
[2017-07-14] MEDS: PHENYTOIN SUSP UDC 100 MG/4 ML UDC GT SCH ×3 (05:46→21:54)
[2017-07-14] MEDS: methylPREDNISolone SOD SUCC 125 MG/2ML VIAL IV SCH ×3 (05:46→21:49)
[2017-07-14] MEDS: BLOOD SUGAR DIAGNOSTIC 1 EACH STRIP IN SCH ×3 (05:46→17:54)
[2017-07-14] MEDS: INSULIN REGULAR, HUMAN 100 UNIT/ML 3 ML VIAL SQ PRN ×3 (05:57→17:59)
--- NOTE | 2017-07-14 06:58 | NUR ---
RN CLOSING NOTES; PATIENT REMAINED NOT IN DISTRESS. NOTED TO BE MORE AWAKE, ATTEMPTS TO COMMUNICATE BUT NOTED WITH INCOMPREHENSIBLE SPEECH. REMAINED SINUS RHYTHM ON MONITOR. IV ACCESS INTACT, IVF INFUSING. SAFETY MEASURES AND SKIN CARE ENSURED. TO ENDORSE TO AM SHIFT RN.
--- NOTE | 2017-07-14 07:10 | NUR ---
JAIME INITIAL NOTE RECEIVED PT IN BED, OPENS EYES, DOES NOT FOLLOW COMMANDS, UNABLE TO MAKE NEEDS KNOWN,PT IS ON 2L NC, SATING 100%, NO S/S OF RESP.DISTRESS OR SOB NOTED AT THIS TIME, PT IS ON TELE MONITOR SHOWING SR @94 BPM, NO S/S OF CHEST PAIN OR DISCOMFORT AT THIS TIME, PT HAS GTUBE, INTACT/PATENT, FLUSHING WELL, RUNNING GLYTROL @60ML/HR, TOLERATING WELL, PT HAS RFA # 22G, C/D/I/PATENT, FLUSHING WELL, RUNNING NS @100ML/HR, NO S/S OF INFECTION/ INFILTRATION NOTED AT THIS TIME, PT IS NOTED WITH MULTIPLE SKIN ISSUES NOTED, BILATERAL ARM EDEMA +4, ALL SAFETY MEASURES IN PLACE AT ALL TIMES, CALL LIGHT WITHIN EASY REACH, WILL MONITOR PT CLOSELY FOR CHANGES
[2017-07-14 07:52] LABS: BASOPHILS % (AUTO) 0.1 % (0.0-2.0); EOSINOPHILS # (AUTO) 0.1 /CMM (0.0-0.7); EOSINOPHILS % (AUTO) 0.3 % (0.0-6.0); HEMATOCRIT 22 % (33-45); LYMPHOCYTES # (AUTO) 0.6 /CMM (0.8-4.8); LYMPHOCYTES % (AUTO) 3.9 % (20.0-44.0); MEAN CORPUSCULAR HEMOGLOBIN 25 PG (26.0-33.0); MEAN CORPUSCULAR HGB CONC 31 g/dl (31.0-36.0); MEAN CORPUSCULAR VOLUME 80 fL (82-100); MONOCYTES # (AUTO) 0.5 /CMM (0.1-1.30); MONOCYTES % (AUTO) 3.3 % (2.0-12.0); NEUTROPHILS # (AUTO) 14.3 /CMM (1.8-8.9); NEUTROPHILS % (AUTO) 92.4 % (43.0-81.0); PLATELET COUNT (AUTO) 532 /CMM (150-450); RDW COEFFICIENT OF VARIATION 16.9 (11.5-15.0); WHITE BLOOD COUNT (AUTO) 15.5 K/uL (4.3-11.0)
[2017-07-14 08:06] LABS: ALANINE AMINOTRANSFERASE 19 U/L (12-78); ALBUMIN 1.6 g/dL (3.4-5.0); ALKALINE PHOSPHATASE 109 U/L (46-116); ASPARTATE AMINOTRANSFERASE 35 U/L (15-37); BILIRUBIN,TOTAL 0.2 mg/dL (0.2-1.0); CALCIUM, SERUM 8.4 mg/dL (8.5-10.1); CARBON DIOXIDE 20 mmol/L (21-32); CHLORIDE 108 mmol/L (98-107); CREATININE 1.2 mg/dL (0.6-1.3); GLUCOSE 118 mg/dL (74-106); POTASSIUM 4.7 mmol/L (3.5-5.1); SODIUM SERUM 140 mmol/L (136-145); TOTAL PROTEIN, SERUM 5.8 g/dL (6.4-8.2); UREA NITROGEN, BLOOD 61 mg/dL (7-18)
[2017-07-14 08:14] LABS: HEMOGLOBIN 6.7 g/dL (11.5-14.8)
[2017-07-14] MEDS: AZTREONAM 1 G in IV NS 0.9% 100 ML IV SCH ×2 (08:23→21:49)
[2017-07-14] MEDS: FERROUS SULFATE UDC 300 MG/5 ML UDC GT SCH (08:24)
[2017-07-14] MEDS: ASPIRIN 81 MG TAB.CHEW GT SCH (08:24)
[2017-07-14] MEDS: ASCORBIC ACID 500 MG TABLET GT SCH ×2 (08:24→17:52)
[2017-07-14] MEDS: LINAGLIPTIN 5 MG TABLET GT SCH (08:24)
[2017-07-14] MEDS: SENNOSIDES 8.6 MG TABLET GT SCH ×4 (08:24→21:49)
[2017-07-14] MEDS: LEVETIRACETAM SOL (5 ML) 100 MG/ML UDC GT SCH ×2 (08:24→21:49)
[2017-07-14] MEDS: PROSOURCE / PROSTAT (PYXIS) 30 ML UDC GT SCH ×2 (08:24→17:53)
[2017-07-14] MEDS: CHOLECALCIFEROL 1,000 UNIT TABLET (VIT D3) GT SCH (08:24)
[2017-07-14] MEDS: SUCRALFATE 1 G/10 ML UDC GT SCH ×4 (08:24→21:49)
[2017-07-14] MEDS: MULTIVIT, IRON, MIN NO. 8, FA 1 TAB GT SCH (08:24)
[2017-07-14] MEDS: IV NS 0.9% 1,000 ML IV PRN ×2 (08:24→21:51)
[2017-07-14] MEDS: VITAMIN B COMP W-C 1 TAB TABLET GT SCH (08:24)
[2017-07-14] MEDS: ACIDOPHILUS/BULGARICUS 1 EACH TAB.CHEW GT SCH ×2 (08:24→17:52)
[2017-07-14] MEDS: PANTOPRAZOLE 40 MG/PACK PACK GT SCH ×2 (08:24→21:50)
[2017-07-14] MEDS: METOPROLOL TARTRATE 25 MG TABLET GT SCH ×2 (08:25→17:53)
[2017-07-14] MEDS: Z GUARD REMEDY 2 OZ OINT TP PRN (08:25)
[2017-07-14] MEDS: Z GUARD REMEDY 2 OZ OINT TP SCH (08:26)
[2017-07-14] MEDS: APIXABAN 2.5 MG TABLET GT SCH ×2 (09:00→17:53)
--- NOTE | 2017-07-14 09:20 | NUR ---
JAIME NOTES PT H/H 6.06/03 LEESA HEAD MD AWARE
[2017-07-14 09:28] LABS: BAND % (MANUAL) 6 % (0.0-5.0); LYMPHOCYTES % (MANUAL) 5 % (16-48); METAMYELOCYTES % 1 % (0-0); MONOCYTES % (MANUAL) 1 % (0-11.0); NEUTROPHILS % (MANUAL) 87 (42-76)
[2017-07-14 09:31] LABS: INR 0.96 (0.87-1.13); PROTHROMBIN TIME 10.3 SECS (9.5-12.7)
[2017-07-14 10:05] LABS: CREATINE KINASE MB 2.8 ng/mL (0-3.6)
--- NOTE | 2017-07-14 10:54 | NUR ---
JAIME NOTE PT WAS TAKEN TO CT OF THE HEAD VIA ACLS PROTOCOL, PT TOLERATED WELL.
--- NOTE | 2017-07-14 11:14 | NUR ---
JAIME NOTE ORDERED ORDERS FOR BLOOD TRANSFUSION, CONSENT OBTAINED BY TELEPHONE BY GRANDDAUGHTER AMBIKA KINCAIDNEY [phone], ROBIN CHAND RN VERIFIED
--- NOTE | 2017-07-14 11:35 | NUR ---
WOUND CARE CONSULT: PT PRESENTS WITH UNSTAGEABLE ULCER TO SACRAL AREA, PRESENT ON ADMISSION. DR CADE BRIZUELA CONSULTED BY DR LARY JAMA. PT NOTED TO HAVE GENERALIZED EDEMA WITH PITTING 3+. PT ON JOSE ISOFLEX LOW AIRLOSS BED. ALL SKIN PROTECTION AND WOUND RECOMMENDATIONS DISCUSSED WITH NURSING STAFF. CRAIG CATH INSERTED BY RN. WILL SEE PRN. NGUYEN IN AGREEMENT WITH PLAN OF CARE. Addendum: 07/14/17 at 1137 by GILDA MCKEON WNDNU Amended: Links added.
[2017-07-14] MEDS: VANCOMYCIN 1 GM in IV D5W 250 ML IV SCH (11:47)
[2017-07-14] MEDS ORDERED: HYDROGEL DRESSING 90 GM TUBE TP PRN (12:00)
[2017-07-14] MEDS: HYDROGEL DRESSING 90 GM TUBE TP SCH (13:58)
--- NOTE | 2017-07-14 14:30 | NUR ---
JAIME NOTE REPORT GIVEN TO NURIA FOR DOUGLAS
--- NOTE | 2017-07-14 15:12 | NUR ---
RN NOTES: 1512H STARTED BT OF 1 UNIT PRBC. MONITORED FOR ANY TRANSFUSION REACTION. KINDLY DISREGARD 2ND VITAL SIGN VALUES DOCUMENTED AT TRANFUSION SHEET. HAD COMPUTER ISSUES WHILE DOCUMENTING. 1839H 1 UNIT OF PRBC TRANSFUSED W/O ANY BLOOD TRANSFUSION REACTION. FOR REPEAT H/H AT 1915H.
--- NOTE | 2017-07-14 19:00 | NUR ---
VISUAL AND STOCK ASSOCIATE CLOSING NOTES: NO ACUTE CHANGES NOTED W/IN SHIFT. PT TOLERATED NC AT 2LPM, NO SOB W/IN SHIFT. TUBE FEEDING TOLERATED WELL, NO RESIDUAL NOTED. KEPT WELL RESTED. NEEDS ATTENDED. CALL LIGHT PLACED W/IN REACH. ENDORSED TO PM RN FOR DOUGLAS.
--- NOTE | 2017-07-14 19:30 | NUR ---
RN OPENING NOTES: RECEIVED PT ON BED AWAKE TO VERBAL STIMULI, WITH INCOMPREHENSIBLE SPEECH, ABLE TO MOAN. ON O2 VIA NC TOLERATED WELL, NOT IN APPARENT DISTRESS. SR ON MONITOR HR AT 80'S WITH OCCASIONAL PVC'S AND PAC'S. IV ACCESS ON RFA G22 INTACT AND PATENT. NOTED WITH BUE AND BLE EDEMA, ELEVATED BUE'S. GT INTACT, PATENCY CHECKED. GT FEEDING AT ORDERED RATE, MONITORED FOR RESIDUAL. TO TURN FEEDING OF ONCE IT REACHED 20 HOURS. FC INTACT, DRAINING VIA GRAVITY. WITH CLUDY YELLOW URINE. MONITORED UO. FOR PENDING H/H DRAW AND RESULTS. FOR PENDING MIDLINE INSERTION. DAM OPERATOR, ERIC MADE AWARE. TO FOLLOW UP. SAFETY MEASURES ENSURED. SKIN CARE RENDERED. MONITORED ACCORDINGLY.
--- NOTE | 2017-07-14 20:25 | NUR ---
RN NOTES: HGB NOW AT 7.5. OTHER UNIT STILL HELD PER PROTOCOL. TO MONITOR H/H RESULTS IN AM.
[2017-07-14 21:11] LABS: HEMATOCRIT 24 % (33-45); HEMOGLOBIN 7.5 g/dL (11.5-14.8); MEAN CORPUSCULAR HEMOGLOBIN 26 PG (26.0-33.0); MEAN CORPUSCULAR HGB CONC 31 g/dl (31.0-36.0); MEAN CORPUSCULAR VOLUME 83 fL (82-100); PLATELET COUNT (AUTO) 525 /CMM (150-450); WHITE BLOOD COUNT (AUTO) 14.8 K/uL (4.3-11.0)
[2017-07-15] VITALS: BP 144/47
[2017-07-15] MEDS: BLOOD SUGAR DIAGNOSTIC 1 EACH STRIP IN SCH ×5 (00:02→23:56)
[2017-07-15] MEDS: INSULIN REGULAR, HUMAN 100 UNIT/ML 3 ML VIAL SQ PRN ×5 (00:03→23:57)
[2017-07-15] MEDS: GLYTROL 1,000 ML BAG GT SCH ×2 (00:04→16:22)
--- NOTE | 2017-07-15 01:50 | NUR ---
RN NOTES: NOTED PATIENT WITH 11 BEATS VTACH. WHEN PATIENT WAS CHECKED NOT IN APPARENT DISTRESS, PATIENT SEEMS COMFORTABLE. WITH VS FOLLOWS: 120/66; HR AT 86 BPM. TO CONTINUE TO MONITOR AT THIS TIME.
[2017-07-15 04:00] VITALS: BP_SYST 101; BP_SYST 132; BP_DIAS 53; BP_DIAS 75
[2017-07-15] MEDS: methylPREDNISolone SOD SUCC 125 MG/2ML VIAL IV SCH ×3 (05:07→21:54)
[2017-07-15] MEDS: PHENYTOIN SUSP UDC 100 MG/4 ML UDC GT SCH ×3 (05:07→21:54)
--- NOTE | 2017-07-15 06:43 | NUR ---
RN CLOSING NOTES; PATIENT REMAINED NOT IN DISTRESS. NO DECLINE IN MENTAL STATUS. REMAINED SINUS RHYTHM ON MONITOR. IV ACCESS INTACT, IVF INFUSING. SAFETY MEASURES AND SKIN CARE ENSURED. TO ENDORSE TO AM SHIFT RN FOR CONTINUITY OF CARE.
--- NOTE | 2017-07-15 07:05 | NUR ---
RN INITIAL NOTE PATIENT RECEIVED IN BED RESTING COMFORTABLY. NO S/S OF PAIN OR DISCOMFORT. RESPIRATIONS ARE EVEN AND UNLABORED. NO S/S OF RESPIRATORY DISTRESS OR SOB. SATING WELL ON 2L NASAL CANULA. IV SITE FLUSHED, PATENT. CRAIG CATHETER DRAINING TO GRAVITY. GTUBE FLUSHED, PLACEMENT VERIFIED. SKIN IS WARM AND DRY TO TOUCH. SAFETY PRECAUTIONS IMPLEMENTED. BED IN LOCKED, LOW POSITION WITH TWO SIDE RAILS UP. WILL MONITOR CLOSELY.
[2017-07-15 07:28] LABS: BASOPHILS % (AUTO) 0.1 % (0.0-2.0); EOSINOPHILS % (AUTO) 0.2 % (0.0-6.0); HEMATOCRIT 24 % (33-45); HEMOGLOBIN 7.8 g/dL (11.5-14.8); LYMPHOCYTES % (AUTO) 6.6 % (20.0-44.0); MEAN CORPUSCULAR HEMOGLOBIN 26 PG (26.0-33.0); MEAN CORPUSCULAR HGB CONC 32 g/dl (31.0-36.0); MEAN CORPUSCULAR VOLUME 82 fL (82-100); MONOCYTES # (AUTO) 0.7 /CMM (0.1-1.30); MONOCYTES % (AUTO) 4.8 % (2.0-12.0); NEUTROPHILS # (AUTO) 12.9 /CMM (1.8-8.9); NEUTROPHILS % (AUTO) 88.3 % (43.0-81.0); PLATELET COUNT (AUTO) 576 /CMM (150-450); RDW COEFFICIENT OF VARIATION 17.6 (11.5-15.0); RED BLOOD CELL COUNT(AUTO) 2.96 MIL/uL (4.0-5.2); WHITE BLOOD COUNT (AUTO) 14.6 K/uL (4.3-11.0)
[2017-07-15 07:31] LABS: CALCIUM, SERUM 7.9 mg/dL (8.5-10.1); CARBON DIOXIDE 23 mmol/L (21-32); CHLORIDE 106 mmol/L (98-107); CREATININE 0.9 mg/dL (0.6-1.3); GLUCOSE 171 mg/dL (74-106); POTASSIUM 4.2 mmol/L (3.5-5.1); SODIUM SERUM 138 mmol/L (136-145); UREA NITROGEN, BLOOD 54 mg/dL (7-18)
[2017-07-15 07:42] LABS: MAGNESIUM 1.2 mg/dL (1.8-2.4)
[2017-07-15 08:00] VITALS: BP 161/74
[2017-07-15] MEDS ORDERED: Sodium Phosphate 15 MMOL in IV D5W 250 ML IV ONE (09:30)
[2017-07-15] MEDS ORDERED: NEUTRA PHOS 1 POWD.PACKET PO ONE (09:30)
[2017-07-15] MEDS ORDERED: PROSTAT (PYXIS) 30 ML UDC GT SCH (09:30)
[2017-07-15 09:36] LABS: BAND % (MANUAL) 4 % (0.0-5.0); EOSINOPHILS % (MANUAL) 1 % (0-4); LYMPHOCYTES % (MANUAL) 9 % (16-48); MONOCYTES % (MANUAL) 9 % (0-11.0); NEUTROPHILS % (MANUAL) 77 (42-76)
[2017-07-15] MEDS: ASCORBIC ACID 500 MG TABLET GT SCH ×2 (09:36→16:19)
[2017-07-15] MEDS: FERROUS SULFATE UDC 300 MG/5 ML UDC GT SCH (09:36)
[2017-07-15] MEDS: LINAGLIPTIN 5 MG TABLET GT SCH (09:36)
[2017-07-15] MEDS: ASPIRIN 81 MG TAB.CHEW GT SCH (09:36)
[2017-07-15] MEDS: LEVETIRACETAM SOL (5 ML) 100 MG/ML UDC GT SCH ×2 (09:36→21:54)
[2017-07-15] MEDS: PANTOPRAZOLE 40 MG/PACK PACK GT SCH ×2 (09:36→21:54)
[2017-07-15] MEDS: CHOLECALCIFEROL 1,000 UNIT TABLET (VIT D3) GT SCH (09:36)
[2017-07-15] MEDS: MULTIVIT, IRON, MIN NO. 8, FA 1 TAB GT SCH (09:36)
[2017-07-15] MEDS: SUCRALFATE 1 G/10 ML UDC GT SCH ×4 (09:36→21:54)
[2017-07-15] MEDS: ACIDOPHILUS/BULGARICUS 1 EACH TAB.CHEW GT SCH ×2 (09:36→16:19)
[2017-07-15] MEDS: VITAMIN B COMP W-C 1 TAB TABLET GT SCH (09:36)
[2017-07-15] MEDS: SENNOSIDES 8.6 MG TABLET GT SCH ×4 (09:36→21:54)
[2017-07-15] MEDS: METOPROLOL TARTRATE 25 MG TABLET GT SCH ×2 (09:39→16:30)
[2017-07-15] MEDS: PROSOURCE / PROSTAT (PYXIS) 30 ML UDC GT SCH ×2 (09:39→16:20)
[2017-07-15] MEDS: Z GUARD REMEDY 2 OZ OINT TP SCH (09:55)
[2017-07-15] MEDS: Magnesium 1GM/D5W 100ML PREMIX 100 ML IV SCH ×2 (09:55→10:48)
[2017-07-15] MEDS: HYDROGEL DRESSING 90 GM TUBE TP SCH (09:55)
[2017-07-15] MEDS: IV NS 0.9% 1,000 ML IV PRN (09:55)
[2017-07-15] MEDS: APIXABAN 2.5 MG TABLET GT SCH ×2 (10:16→16:19)
[2017-07-15] MEDS: AZTREONAM 1 G in IV NS 0.9% 100 ML IV SCH ×2 (11:25→21:54)
[2017-07-15 12:00] VITALS: BP 152/75
[2017-07-15] MEDS: VANCOMYCIN 1 GM in IV D5W 250 ML IV SCH (13:36)
[2017-07-15 16:00] VITALS: BP 153/78
--- NOTE | 2017-07-15 19:15 | NUR ---
TELE/RN NOTES RECEIVED PT. LYING IN BED RESTING. PT. OPENS EYES AND SPEAKS GARBLED WORDS. BREATHING EVEN AND UNLABORED ON 2LPM O2 VIA NC. NO SOB, RESPIRATORY BREATH OR S/S OF PAIN NOTED AT THIS TIME. PT. WITH EXTERNAL BLOWER AND COMPRESSOR ASSEMBLER PRESENT AND INTACT. CURRENT RHYTHM = SINUS RHYTHM HR 74. PT. WITH RIGHT FOREARM 22 GAUGE PERIPHERAL IV PRESENT, PATENT AND INTACT ADMINISTERING TO PT. NS @ 100 ML/HR. PER DAYSHIFT NURSE PT. IS AWAITING MIDLINE INSERTION. PT. WITH G-TUBE PRESENT AND INTACT ADMINISTERING TO PT. GLYTROL @ 60 ML/HR. PT. TOLERATING WELL. NO RESIDUAL NOTED. PT. WITH CRAIG CATHETER PRESENT, PATENT AND INTACT DRAINING CLEAR YELLOW URINE. BED IN LOWEST POSITION, SIDE RAILS UP X3, CALL LIGHT WITHIN REACH, WILL CONTINUE TO MONITOR.
[2017-07-15 20:00] VITALS: BP 137/51
[2017-07-16] VITALS: BP 151/77
[2017-07-16] MEDS: IV NS 0.9% 1,000 ML IV PRN ×2 (03:38→23:27)
[2017-07-16 04:00] VITALS: BP 148/72
[2017-07-16] MEDS: PHENYTOIN SUSP UDC 100 MG/4 ML UDC GT SCH ×3 (05:12→23:13)
[2017-07-16] MEDS: methylPREDNISolone SOD SUCC 125 MG/2ML VIAL IV SCH ×3 (05:12→23:14)
[2017-07-16] MEDS: BLOOD SUGAR DIAGNOSTIC 1 EACH STRIP IN SCH ×4 (05:30→23:26)
--- NOTE | 2017-07-16 05:30 | NUR ---
TELE/RN NOTES NOTIFIED LAB PT. HAS VANCO TROUGH DUE @ 0500. GIRLS SWIMMING COACH STATED SHE WOULD DRAW THE VANCO TROUGH NOW. AWAITING RESULTS BEFORE ADMINISTERING VANCOMYCIN ORDERED. WILL CONTINUE TO MONITOR.
[2017-07-16] MEDS: INSULIN REGULAR, HUMAN 100 UNIT/ML 3 ML VIAL SQ PRN ×4 (05:32→23:28)
[2017-07-16 06:01] LABS: EOSINOPHILS % (AUTO) 0.2 % (0.0-6.0); HEMATOCRIT 25 % (33-45); HEMOGLOBIN 8.3 g/dL (11.5-14.8); LYMPHOCYTES # (AUTO) 1.3 /CMM (0.8-4.8); LYMPHOCYTES % (AUTO) 8.6 % (20.0-44.0); MEAN CORPUSCULAR HEMOGLOBIN 26 PG (26.0-33.0); MEAN CORPUSCULAR HGB CONC 33 g/dl (31.0-36.0); MEAN CORPUSCULAR VOLUME 81 fL (82-100); MONOCYTES # (AUTO) 0.9 /CMM (0.1-1.30); MONOCYTES % (AUTO) 5.9 % (2.0-12.0); NEUTROPHILS # (AUTO) 13.4 /CMM (1.8-8.9); NEUTROPHILS % (AUTO) 85.3 % (43.0-81.0); PLATELET COUNT (AUTO) 708 /CMM (150-450); RDW COEFFICIENT OF VARIATION 17.6 (11.5-15.0); RED BLOOD CELL COUNT(AUTO) 3.15 MIL/uL (4.0-5.2); WHITE BLOOD COUNT (AUTO) 15.7 K/uL (4.3-11.0)
--- NOTE | 2017-07-16 06:38 | NUR ---
TELE/RN NOTES PT. IS LYING IN BED RESTING. BREATHING EVEN AND UNLABORED ON 2LPM O2 VIA NC. NO SOB, RESPIRATORY BREATH OR S/S OF PAIN NOTED AT THIS TIME. PT. WITH EXTERNAL GRAZING AIDE PRESENT AND INTACT. CURRENT RHYTHM = SINUS RHYTHM WITH PVC'S HR 82. PT. WITH RIGHT UPPER ARM MIDLINE IV PRESENT, PATENT AND INTACT ADMINISTERING TO PT. NS @ 100 ML/HR. PT. WITH G-TUBE PRESENT AND INTACT ADMINISTERING TO PT. GLYTROL @ 60 ML/HR. PT. TOLERATING WELL. NO RESIDUAL NOTED. PT. WITH CRAIG CATHETER PRESENT, PATENT AND INTACT DRAINING CLEAR YELLOW URINE. ALL PT. NEEDS MET. PT. OFFLOADED. TURNED AND REPOSITIONED Q2H AND NEEDED. BED IN LOWEST POSITION, SIDE RAILS UP X3, CALL LIGHT WITHIN REACH, WILL ENDORSE TO DAYSMDFT NURSE FOR CONTINUITY OF CARE.
[2017-07-16 06:49] LABS: CARBON DIOXIDE 23 mmol/L (21-32); CHLORIDE 103 mmol/L (98-107); CREATININE 0.8 mg/dL (0.6-1.3); GLUCOSE 179 mg/dL (74-106); MAGNESIUM 1.5 mg/dL (1.8-2.4); PHOSPHORUS 1.7 mg/dL (2.5-4.9); POTASSIUM 3.8 mmol/L (3.5-5.1); SODIUM SERUM 136 mmol/L (136-145); UREA NITROGEN, BLOOD 45 mg/dL (7-18)
[2017-07-16] MEDS: VANCOMYCIN 1 GM in IV D5W 250 ML IV SCH ×2 (07:11→23:26)
--- NOTE | 2017-07-16 07:15 | NUR ---
SENIOR TECHNICAL SUPPORT ANALYST NOTES PATIENT IN BED, SLEEPING, AROUSES EASILY. ON OXYGEN AT 2L/MIN VIA NC, NO SOB. [place] MID LINE PATENT AND INTACT, FLUSHES WELL. ON GTUBE FEEDING GLYTROL AT 60ML/HR, TOLERATING WELL. MAINTAIN HOB ELEVATED. CRAIG CATH IN PLACE. WILL CONT TO MONITOR.
[2017-07-16 08:00] VITALS: BP 150/83
[2017-07-16 08:17] LABS: BAND % (MANUAL) 1 % (0.0-5.0); LYMPHOCYTES % (MANUAL) 3 % (16-48); METAMYELOCYTES % 3 % (0-0); MONOCYTES % (MANUAL) 5 % (0-11.0); MYELOCYTES % 5 % (0-0); NEUTROPHILS % (MANUAL) 83 (42-76)
[2017-07-16] MEDS: FERROUS SULFATE UDC 300 MG/5 ML UDC GT SCH (09:00)
[2017-07-16] MEDS: SUCRALFATE 1 G/10 ML UDC GT SCH ×4 (09:00→23:13)
[2017-07-16] MEDS: LEVETIRACETAM SOL (5 ML) 100 MG/ML UDC GT SCH ×2 (09:00→23:14)
[2017-07-16] MEDS: VITAMIN B COMP W-C 1 TAB TABLET GT SCH (09:01)
[2017-07-16] MEDS: ACIDOPHILUS/BULGARICUS 1 EACH TAB.CHEW GT SCH ×2 (09:01→16:05)
[2017-07-16] MEDS: ASCORBIC ACID 500 MG TABLET GT SCH ×2 (09:01→16:06)
[2017-07-16] MEDS: PANTOPRAZOLE 40 MG/PACK PACK GT SCH ×2 (09:01→23:14)
[2017-07-16] MEDS: MULTIVIT, IRON, MIN NO. 8, FA 1 TAB GT SCH (09:02)
[2017-07-16] MEDS: CHOLECALCIFEROL 1,000 UNIT TABLET (VIT D3) GT SCH (09:02)
[2017-07-16] MEDS: SENNOSIDES 8.6 MG TABLET GT SCH ×4 (09:02→23:14)
[2017-07-16] MEDS: METOPROLOL TARTRATE 25 MG TABLET GT SCH ×2 (09:02→16:14)
[2017-07-16] MEDS: LINAGLIPTIN 5 MG TABLET GT SCH (09:02)
[2017-07-16] MEDS: AZTREONAM 1 G in IV NS 0.9% 100 ML IV SCH (09:10)
[2017-07-16] MEDS: PROSOURCE / PROSTAT (PYXIS) 30 ML UDC GT SCH ×2 (09:28→16:21)
[2017-07-16] MEDS: APIXABAN 2.5 MG TABLET GT SCH ×2 (09:28→16:05)
[2017-07-16] MEDS: ASPIRIN 81 MG TAB.CHEW GT SCH (09:28)
[2017-07-16] MEDS: Z GUARD REMEDY 2 OZ OINT TP SCH (09:29)
[2017-07-16] MEDS: HYDROGEL DRESSING 90 GM TUBE TP SCH (09:29)
[2017-07-16] MEDS ORDERED: Sodium Phosphate 15 MMOL in IV D5W 250 ML IV ONE (10:00)
[2017-07-16] MEDS: Magnesium 1GM/D5W 100ML PREMIX 100 ML IV SCH ×2 (10:42→11:44)
[2017-07-16 12:00] VITALS: BP 144/68
[2017-07-16 16:00] VITALS: BP 126/47
--- NOTE | 2017-07-16 18:28 | NUR ---
BREEDER HEN SERVICE TECHNICIAN CLOSING NOTES PATIENT IN BED, NOT IN DISTRESS. GARBLE WORDS, UNABLE TO FOLLOW COMMAND. ON TELE MONITOR SINUS RHYTHM HR 71. BLOOD SUGAR MONITORED. MAGNESIUM AND PHOSPHORUS SUPPLEMENTED. GTUBE FEEDING GYTROL AT 60ML/HR, TOLERATING WELL WITH MINIMAL GASTRIC RESIDUAL. CRAIG CATH INTACT , DRAINING TO GRAVITY. ON ANTIBIOTIC WITH NO ADVERSE SIDE EFFECT, AFEBRILE, NO DIARRHEA. CALL LIGHT WITHIN REACH. PATIENT IS SEEN BY DR. MATHUR-ID TODAY, CHANGED AZTREONAM IV TO BACTRIM TAB. AND CONT. VANCOMYCIN ORDERED. WILL ENDORSE TO POLICE CAPTAIN PRECINCT RN FOR CONTINUITY OF CARE.
[2017-07-16 20:00] VITALS: BP 140/98
[2017-07-16] MEDS ORDERED: MORPHINE SULFATE INJ 4 MG/ML DISP.SYRIN ONE (20:06)
[2017-07-16] MEDS ORDERED: ONDANSETRON 4 MG TAB.RAPDIS ONE (20:06)
[2017-07-16] MEDS: SULFAMETH/TRIMETH 800/160 MG 1 UDTAB TABLET PO SCH (23:14)
[2017-07-17] VITALS: BP 128/68
[2017-07-17] MEDS: GLYTROL 1,000 ML BAG GT SCH (00:50)
[2017-07-17 04:00] VITALS: BP 147/66
[2017-07-17] MEDS: BLOOD SUGAR DIAGNOSTIC 1 EACH STRIP IN SCH ×3 (05:41→17:48)
[2017-07-17] MEDS: PHENYTOIN SUSP UDC 100 MG/4 ML UDC GT SCH ×3 (05:41→21:27)
[2017-07-17] MEDS: methylPREDNISolone SOD SUCC 125 MG/2ML VIAL IV SCH ×3 (05:41→21:29)
[2017-07-17] MEDS: INSULIN REGULAR, HUMAN 100 UNIT/ML 3 ML VIAL SQ PRN ×3 (05:52→17:48)
[2017-07-17 07:09] LABS: EOSINOPHILS # (AUTO) 0.1 /CMM (0.0-0.7); EOSINOPHILS % (AUTO) 0.4 % (0.0-6.0); HEMATOCRIT 23 % (33-45); HEMOGLOBIN 7.5 g/dL (11.5-14.8); LYMPHOCYTES # (AUTO) 1.7 /CMM (0.8-4.8); LYMPHOCYTES % (AUTO) 9.8 % (20.0-44.0); MEAN CORPUSCULAR HEMOGLOBIN 26 PG (26.0-33.0); MEAN CORPUSCULAR HGB CONC 32 g/dl (31.0-36.0); MEAN CORPUSCULAR VOLUME 81 fL (82-100); MONOCYTES # (AUTO) 1.5 /CMM (0.1-1.30); MONOCYTES % (AUTO) 8.6 % (2.0-12.0); NEUTROPHILS # (AUTO) 13.9 /CMM (1.8-8.9); NEUTROPHILS % (AUTO) 81.2 % (43.0-81.0); PLATELET COUNT (AUTO) 695 /CMM (150-450); RED BLOOD CELL COUNT(AUTO) 2.87 MIL/uL (4.0-5.2); WHITE BLOOD COUNT (AUTO) 17.1 K/uL (4.3-11.0)
[2017-07-17 07:41] LABS: CALCIUM, SERUM 7.9 mg/dL (8.5-10.1); CARBON DIOXIDE 22 mmol/L (21-32); CHLORIDE 104 mmol/L (98-107); CREATININE 0.7 mg/dL (0.6-1.3); GLUCOSE 196 mg/dL (74-106); MAGNESIUM 1.8 mg/dL (1.8-2.4); PHOSPHORUS 2.8 mg/dL (2.5-4.9); POTASSIUM 3.6 mmol/L (3.5-5.1); SODIUM SERUM 136 mmol/L (136-145); UREA NITROGEN, BLOOD 44 mg/dL (7-18)
--- NOTE | 2017-07-17 07:45 | NUR ---
RN NOTES RECEIVED PATIENT IN BED, ASLEEP, NO ACUTE DISTRESS NOTED. ON OXYGEN AT 2L/MIN VIA NC, NO SOB. SULTANA MID LINE PATENT AND INTACT, WITH ONGOING IVF NS@100ML/HR. ON GTUBE FEEDING GLYTROL AT 60ML/HR, TOLERATING WELL CHECKED FOR RESIDUALS, NONE NOTED. MAINTAIN HOB ELEVATED. CRAIG CATH IN PLACE. REPOSITIONED FOR COMFORT, SAFETY MAINTAINED. CALL LIGHT WITHIN REACH, WILL CONT TO MONITOR.
[2017-07-17 07:58] LABS: BAND % (MANUAL) 7 % (0.0-5.0); EOSINOPHILS % (MANUAL) 1 % (0-4); LYMPHOCYTES % (MANUAL) 9 % (16-48); METAMYELOCYTES % 1 % (0-0); MONOCYTES % (MANUAL) 7 % (0-11.0); MYELOCYTES % 1 % (0-0); NEUTROPHILS % (MANUAL) 74 (42-76)
[2017-07-17 08:00] VITALS: BP 153/54
[2017-07-17] MEDS: LINAGLIPTIN 5 MG TABLET GT SCH (08:58)
[2017-07-17] MEDS: PANTOPRAZOLE 40 MG/PACK PACK GT SCH ×2 (08:58→21:29)
[2017-07-17] MEDS: SENNOSIDES 8.6 MG TABLET GT SCH ×4 (08:58→21:27)
[2017-07-17] MEDS: FERROUS SULFATE UDC 300 MG/5 ML UDC GT SCH (08:58)
[2017-07-17] MEDS: SULFAMETH/TRIMETH 800/160 MG 1 UDTAB TABLET PO SCH ×2 (08:58→21:26)
[2017-07-17] MEDS: LEVETIRACETAM SOL (5 ML) 100 MG/ML UDC GT SCH ×2 (08:58→21:28)
[2017-07-17] MEDS: APIXABAN 2.5 MG TABLET GT SCH ×2 (08:58→16:21)
[2017-07-17] MEDS: ASPIRIN 81 MG TAB.CHEW GT SCH (08:58)
[2017-07-17] MEDS: MULTIVIT, IRON, MIN NO. 8, FA 1 TAB GT SCH (08:58)
[2017-07-17] MEDS: CHOLECALCIFEROL 1,000 UNIT TABLET (VIT D3) GT SCH (08:58)
[2017-07-17] MEDS: ASCORBIC ACID 500 MG TABLET GT SCH ×2 (08:58→16:20)
[2017-07-17] MEDS: ACIDOPHILUS/BULGARICUS 1 EACH TAB.CHEW GT SCH ×2 (08:58→16:20)
[2017-07-17] MEDS: SUCRALFATE 1 G/10 ML UDC GT SCH ×4 (08:58→21:28)
[2017-07-17] MEDS: VITAMIN B COMP W-C 1 TAB TABLET GT SCH (08:58)
[2017-07-17] MEDS: HYDROGEL DRESSING 90 GM TUBE TP SCH (08:59)
[2017-07-17] MEDS: METOPROLOL TARTRATE 25 MG TABLET GT SCH ×2 (08:59→16:20)
[2017-07-17] MEDS: Z GUARD REMEDY 2 OZ OINT TP SCH (08:59)
[2017-07-17] MEDS: PROSOURCE / PROSTAT (PYXIS) 30 ML UDC GT SCH ×2 (09:00→16:22)
[2017-07-17 12:00] VITALS: BP_SYST 147; BP_DIAS 55; BP_DIAS 56
[2017-07-17] MEDS: IV NS 0.9% 1,000 ML IV PRN (12:47)
[2017-07-17 16:00] VITALS: BP_SYST 162; BP_DIAS 68; BP_DIAS 69
[2017-07-17] MEDS: VANCOMYCIN 1 GM in IV D5W 250 ML IV SCH (17:47)
--- NOTE | 2017-07-17 19:30 | NUR ---
RN INITIAL NOTES RECEIVED PATIENT IN BED ,NONVERBAL, SOMETIMES NOTED TO HAVE GARBLED SPEECH. BREATHING EVEN AND NONLABORED, ON O2 VIA NC @ 2LPM, TOLERATING WELL, FREE FROM ANY S/S OF RESPIRATORY DISTRESS. ON TELEMETRY MONITORING, REVEALING SINUS RHYTHM AT THIS TIME. NOTED WITH CRAIG CATHETER, DRAINING BY GRAVITY TO DRAINAGE BAG. GT PATENT AND INTACT, WITH GTF ONGOING PRESCRIBED, TOLERATING WELL, NO GASTRIC RESIDUALS AT THIS TIME. NOTED WITH SULTANA MIDLINE WITH IVF INFUSING PRESCRIBED, SITE FREE FROM S/S OF INFILTRATION OR PHLEBITIS. ATTEMPTED TO CONTACT PATIENT'S GRAND DAUGHTER AMBIKA NEWTON TO OBTAIN CONSENT FOR EXCISIONAL DEBRIDEMENT OF SACRUM, UNABLE TO REACH AT THIS TIME. WILL ATTEMPT TO OBTAIN CONSENT AGAIN. PATIENT MADE COMFORTABLE, CALL LIGHT WITHIN EASY REACH, BED IN LOWEST AND LOCKED POSITION. WILL CONTINUE TO CLOSELY MONITOR
[2017-07-17 20:00] VITALS: BP 128/49
--- NOTE | 2017-07-17 23:00 | NUR ---
RN NOTES PATIENT NOTED TO HAVE CRACKLES UPON AUSCULTATION. INSTRUCTED PATIENT TO DEEP COUGH, ORAL SUCTIONING PERFORMED. WILL CONTINUE TO CLOSELY MONITOR
[2017-07-18] VITALS (11 sets, daily range): BP systolic 113–144; BP diastolic 49–73
[2017-07-18] MEDS: IV NS 0.9% 1,000 ML IV PRN (00:14)
[2017-07-18] MEDS: BLOOD SUGAR DIAGNOSTIC 1 EACH STRIP IN SCH ×5 (00:17→23:22)
[2017-07-18] MEDS: INSULIN REGULAR, HUMAN 100 UNIT/ML 3 ML VIAL SQ PRN ×5 (00:20→23:31)
[2017-07-18] MEDS: GLYTROL 1,000 ML BAG GT SCH ×2 (00:21→23:20)
[2017-07-18] MEDS: PHENYTOIN SUSP UDC 100 MG/4 ML UDC GT SCH ×3 (05:10→20:28)
[2017-07-18] MEDS: methylPREDNISolone SOD SUCC 125 MG/2ML VIAL IV SCH (05:18)
--- NOTE | 2017-07-18 07:00 | NUR ---
RN CLOSING NOTES PATIENT SLEEPING IN BED AT THIS TIME, APPEARS COMFORTABLE. PATIENT ENDORSED TO THE AM SHIFT NURSE FOR CONTINUITY OF CARE
[2017-07-18 07:02] LABS: LYMPHOCYTES % (AUTO) 5.5 % (20.0-44.0); MEAN CORPUSCULAR HEMOGLOBIN 26 PG (26.0-33.0); MEAN CORPUSCULAR HGB CONC 32 g/dl (31.0-36.0); MEAN CORPUSCULAR VOLUME 81 fL (82-100); MONOCYTES # (AUTO) 0.9 /CMM (0.1-1.30); NEUTROPHILS # (AUTO) 16.3 /CMM (1.8-8.9); NEUTROPHILS % (AUTO) 89.5 % (43.0-81.0); PLATELET COUNT (AUTO) 611 /CMM (150-450); RDW COEFFICIENT OF VARIATION 18.1 (11.5-15.0); RED BLOOD CELL COUNT(AUTO) 2.39 MIL/uL (4.0-5.2); WHITE BLOOD COUNT (AUTO) 18.2 K/uL (4.3-11.0)
[2017-07-18 07:06] LABS: HEMATOCRIT 20 % (33-45); HEMOGLOBIN 6.2 g/dL (11.5-14.8)
[2017-07-18 08:00] LABS: CALCIUM, SERUM 7.8 mg/dL (8.5-10.1); CARBON DIOXIDE 22 mmol/L (21-32); CHLORIDE 104 mmol/L (98-107); CREATININE 0.9 mg/dL (0.6-1.3); GLUCOSE 189 mg/dL (74-106); MAGNESIUM 1.6 mg/dL (1.8-2.4); PHOSPHORUS 2.9 mg/dL (2.5-4.9); POTASSIUM 3.8 mmol/L (3.5-5.1); SODIUM SERUM 137 mmol/L (136-145); UREA NITROGEN, BLOOD 45 mg/dL (7-18)
[2017-07-18] MEDS ORDERED: SILVER NITRATE APPLICATOR 1 EA BOX TP ONE (08:00)
[2017-07-18] MEDS ORDERED: LIDOCAINE 2%-EPI 1:100,000 30 ML VIAL TP ONE (08:00)
[2017-07-18 08:02] LABS: BAND % (MANUAL) 4 % (0.0-5.0); LYMPHOCYTES % (MANUAL) 12 % (16-48); MONOCYTES % (MANUAL) 2 % (0-11.0); NEUTROPHILS % (MANUAL) 82 (42-76)
[2017-07-18] MEDS: SULFAMETH/TRIMETH 800/160 MG 1 UDTAB TABLET PO SCH ×2 (08:26→20:28)
[2017-07-18] MEDS: SUCRALFATE 1 G/10 ML UDC GT SCH ×4 (08:26→20:28)
[2017-07-18] MEDS: FERROUS SULFATE UDC 300 MG/5 ML UDC GT SCH (08:26)
[2017-07-18] MEDS: PANTOPRAZOLE 40 MG/PACK PACK GT SCH ×2 (08:26→20:28)
[2017-07-18] MEDS: ACIDOPHILUS/BULGARICUS 1 EACH TAB.CHEW GT SCH ×2 (08:27→17:33)
[2017-07-18] MEDS: ASPIRIN 81 MG TAB.CHEW GT SCH (08:27)
[2017-07-18] MEDS: ASCORBIC ACID 500 MG TABLET GT SCH ×2 (08:27→17:33)
[2017-07-18] MEDS: SENNOSIDES 8.6 MG TABLET GT SCH ×4 (08:27→20:28)
[2017-07-18] MEDS: CHOLECALCIFEROL 1,000 UNIT TABLET (VIT D3) GT SCH (08:27)
[2017-07-18] MEDS: MULTIVIT, IRON, MIN NO. 8, FA 1 TAB GT SCH (08:27)
[2017-07-18] MEDS: VITAMIN B COMP W-C 1 TAB TABLET GT SCH (08:27)
[2017-07-18] MEDS: LEVETIRACETAM SOL (5 ML) 100 MG/ML UDC GT SCH ×2 (08:27→20:28)
[2017-07-18] MEDS: METOPROLOL TARTRATE 25 MG TABLET GT SCH ×2 (08:30→17:34)
[2017-07-18] MEDS: LINAGLIPTIN 5 MG TABLET GT SCH (08:30)
[2017-07-18] MEDS: PROSOURCE / PROSTAT (PYXIS) 30 ML UDC GT SCH ×2 (08:30→17:35)
[2017-07-18] MEDS: APIXABAN 2.5 MG TABLET GT SCH (08:30)
[2017-07-18] MEDS: HYDROGEL DRESSING 90 GM TUBE TP SCH (08:36)
[2017-07-18] MEDS: Z GUARD REMEDY 2 OZ OINT TP PRN (08:36)
[2017-07-18] MEDS: Z GUARD REMEDY 2 OZ OINT TP SCH (08:37)
[2017-07-18 09:16] LABS: HEMOGLOBIN 6.6 g/dL (11.5-14.8)
[2017-07-18] MEDS: Magnesium 1GM/D5W 100ML PREMIX 100 ML IV SCH ×2 (11:21→12:31)
[2017-07-18] MEDS ORDERED: FUROSEMIDE 20 MG/2 ML VIAL IV ONE (11:30)
[2017-07-18] MEDS: VANCOMYCIN 1 GM in IV D5W 250 ML IV SCH (11:34)
--- NOTE | 2017-07-18 17:26 | NUR ---
RN NOTE SPOKE TO PATIENT'S DAUGHTER ROMEO ON THE PHONE ABOUT CONSENT FOR DEBRIDEMENT, SHE IS UNDECIDED AND ASKED TO SPEAK TO DR. BRIZUEAL BEFORE CONSENTING. CURRENTLY PATIENT IS RECEIVING BLOOD TRANSFUSING AND TOLERATING INFUSION. PATIENT DENIES PAIN, ABLE TO VERBALLY REPLY TO SIMPLE QUESTIONS AT THIS TIME. VSS.
[2017-07-19] VITALS: BP 144/79
[2017-07-19 04:00] VITALS: BP 160/71
[2017-07-19] MEDS: VANCOMYCIN 1 GM in IV D5W 250 ML IV SCH (06:00)
[2017-07-19 06:29] LABS: BASOPHILS % (AUTO) 0.2 % (0.0-2.0); EOSINOPHILS # (AUTO) 0.3 /CMM (0.0-0.7); EOSINOPHILS % (AUTO) 1.2 % (0.0-6.0); HEMATOCRIT 25 % (33-45); HEMOGLOBIN 8.3 g/dL (11.5-14.8); LYMPHOCYTES % (AUTO) 9.5 % (20.0-44.0); MEAN CORPUSCULAR HEMOGLOBIN 28 PG (26.0-33.0); MEAN CORPUSCULAR HGB CONC 33 g/dl (31.0-36.0); MEAN CORPUSCULAR VOLUME 83 fL (82-100); MONOCYTES # (AUTO) 1.7 /CMM (0.1-1.30); MONOCYTES % (AUTO) 7.7 % (2.0-12.0); NEUTROPHILS # (AUTO) 17.5 /CMM (1.8-8.9); NEUTROPHILS % (AUTO) 81.4 % (43.0-81.0); PLATELET COUNT (AUTO) 616 /CMM (150-450); RDW COEFFICIENT OF VARIATION 17.8 (11.5-15.0); RED BLOOD CELL COUNT(AUTO) 2.99 MIL/uL (4.0-5.2); WHITE BLOOD COUNT (AUTO) 21.5 K/uL (4.3-11.0)
[2017-07-19] MEDS: BLOOD SUGAR DIAGNOSTIC 1 EACH STRIP IN SCH ×3 (06:35→18:00)
[2017-07-19] MEDS: INSULIN REGULAR, HUMAN 100 UNIT/ML 3 ML VIAL SQ PRN ×2 (06:36→12:00)
[2017-07-19] MEDS: PHENYTOIN SUSP UDC 100 MG/4 ML UDC GT SCH ×3 (06:40→21:49)
[2017-07-19 06:48] LABS: CARBON DIOXIDE 25 mmol/L (21-32); CHLORIDE 102 mmol/L (98-107); CREATININE 0.8 mg/dL (0.6-1.3); GLUCOSE 183 mg/dL (74-106); MAGNESIUM 1.9 mg/dL (1.8-2.4); SODIUM SERUM 135 mmol/L (136-145); UREA NITROGEN, BLOOD 48 mg/dL (7-18); VANCOMYCIN,TROUGH 28 ug/ml (12-20)
[2017-07-19 07:31] LABS: EOSINOPHILS % (MANUAL) 1 % (0-4); LYMPHOCYTES % (MANUAL) 14 % (16-48); MONOCYTES % (MANUAL) 10 % (0-11.0); NEUTROPHILS % (MANUAL) 75 (42-76)
[2017-07-19 08:00] VITALS: BP 156/56
[2017-07-19] MEDS: ASPIRIN 81 MG TAB.CHEW GT SCH (09:54)
[2017-07-19] MEDS: LINAGLIPTIN 5 MG TABLET GT SCH (09:54)
[2017-07-19] MEDS: SENNOSIDES 8.6 MG TABLET GT SCH ×4 (09:54→21:49)
[2017-07-19] MEDS: PANTOPRAZOLE 40 MG/PACK PACK GT SCH ×2 (09:54→21:49)
[2017-07-19] MEDS: VITAMIN B COMP W-C 1 TAB TABLET GT SCH (09:54)
[2017-07-19] MEDS: ACIDOPHILUS/BULGARICUS 1 EACH TAB.CHEW GT SCH ×2 (09:54→16:17)
[2017-07-19] MEDS: predniSONE 20 MG TABLET PO SCH (09:54)
[2017-07-19] MEDS: CHOLECALCIFEROL 1,000 UNIT TABLET (VIT D3) GT SCH (09:54)
[2017-07-19] MEDS: LEVETIRACETAM SOL (5 ML) 100 MG/ML UDC GT SCH ×2 (09:54→21:49)
[2017-07-19] MEDS: ASCORBIC ACID 500 MG TABLET GT SCH ×2 (09:54→16:17)
[2017-07-19] MEDS: MULTIVIT, IRON, MIN NO. 8, FA 1 TAB GT SCH (09:54)
[2017-07-19] MEDS: FERROUS SULFATE UDC 300 MG/5 ML UDC GT SCH (09:54)
[2017-07-19] MEDS: SUCRALFATE 1 G/10 ML UDC GT SCH ×4 (09:54→21:49)
[2017-07-19] MEDS: SULFAMETH/TRIMETH 800/160 MG 1 UDTAB TABLET PO SCH ×2 (09:54→21:49)
[2017-07-19] MEDS: METOPROLOL TARTRATE 25 MG TABLET GT SCH ×2 (09:55→16:19)
[2017-07-19] MEDS: PROSOURCE / PROSTAT (PYXIS) 30 ML UDC GT SCH ×2 (09:55→16:20)
[2017-07-19] MEDS: HYDROGEL DRESSING 90 GM TUBE TP SCH (09:57)
[2017-07-19] MEDS: Z GUARD REMEDY 2 OZ OINT TP SCH (09:57)
[2017-07-19 16:00] VITALS: BP 137/73
[2017-07-19] MEDS ORDERED: FUROSEMIDE 20 MG/2 ML VIAL IV ONE (16:00)
--- NOTE | 2017-07-19 19:10 | NUR ---
Handoff report to night nurse.
[2017-07-19 20:00] VITALS: BP 137/74
[2017-07-20] MEDS: VANCOMYCIN 1 GM in IV D5W 250 ML IV SCH ×3 (01:09)
[2017-07-20] MEDS: BLOOD SUGAR DIAGNOSTIC 1 EACH STRIP IN SCH ×3 (01:10→13:07)
[2017-07-20] MEDS: INSULIN REGULAR, HUMAN 100 UNIT/ML 3 ML VIAL SQ PRN ×3 (01:11→13:17)
[2017-07-20 04:00] VITALS: BP_SYST 107; BP_SYST 127; BP_DIAS 57; BP_DIAS 74
[2017-07-20] MEDS: PHENYTOIN SUSP UDC 100 MG/4 ML UDC GT SCH ×2 (05:22→12:41)
[2017-07-20 06:38] LABS: BASOPHILS % (AUTO) 0.2 % (0.0-2.0); EOSINOPHILS # (AUTO) 0.2 /CMM (0.0-0.7); EOSINOPHILS % (AUTO) 1.1 % (0.0-6.0); HEMATOCRIT 23 % (33-45); HEMOGLOBIN 7.4 g/dL (11.5-14.8); LYMPHOCYTES # (AUTO) 1.7 /CMM (0.8-4.8); MEAN CORPUSCULAR HEMOGLOBIN 28 PG (26.0-33.0); MEAN CORPUSCULAR HGB CONC 33 g/dl (31.0-36.0); MEAN CORPUSCULAR VOLUME 84 fL (82-100); MONOCYTES # (AUTO) 1.7 /CMM (0.1-1.30); MONOCYTES % (AUTO) 9.1 % (2.0-12.0); NEUTROPHILS # (AUTO) 14.9 /CMM (1.8-8.9); NEUTROPHILS % (AUTO) 80.6 % (43.0-81.0); PLATELET COUNT (AUTO) 536 /CMM (150-450); RDW COEFFICIENT OF VARIATION 18.1 (11.5-15.0); RED BLOOD CELL COUNT(AUTO) 2.71 MIL/uL (4.0-5.2); WHITE BLOOD COUNT (AUTO) 18.5 K/uL (4.3-11.0)
[2017-07-20 07:12] LABS: CARBON DIOXIDE 25 mmol/L (21-32); CHLORIDE 101 mmol/L (98-107); CREATININE 0.9 mg/dL (0.6-1.3); GLUCOSE 146 mg/dL (74-106); MAGNESIUM 1.6 mg/dL (1.8-2.4); PHOSPHORUS 3.3 mg/dL (2.5-4.9); POTASSIUM 3.9 mmol/L (3.5-5.1); SODIUM SERUM 134 mmol/L (136-145); UREA NITROGEN, BLOOD 49 mg/dL (7-18); VANCOMYCIN,TROUGH 21 ug/ml (12-20)
--- NOTE | 2017-07-20 07:30 | NUR ---
MS RN NOTE: RECEIVED PT RESTING COMFORTABLY IN BED. ON O2 2LPM VIA NC, RESPIRATIONS EVEN AND UNLABORED WITH NO SOB NOTED. SULTANA MIDLINE PATENT AND INTACT. G-TUBE PATENT AND INTACT WITH GLYTROL RUNNING AT 60ML/HR. SEIZURE PRECAUTIONS IN PLACE. CRAIG CATH DRAINING TO GRAVITY WITH YELLOW CLEAR URINE. BED LOW, LOCKED WITH CALL LIGHT WITHIN REACH. WILL CONT TO MONITOR.
[2017-07-20 07:52] LABS: BAND % (MANUAL) 2 % (0.0-5.0); EOSINOPHILS % (MANUAL) 1 % (0-4); LYMPHOCYTES % (MANUAL) 14 % (16-48); MONOCYTES % (MANUAL) 8 % (0-11.0); NEUTROPHILS % (MANUAL) 75 (42-76)
[2017-07-20 08:00] VITALS: BP 125/54
[2017-07-20] MEDS ORDERED: VANCOMYCIN 0.75 GM in IV D5W 250 ML IV SCH ×2 (08:00→21:00)
--- NOTE | 2017-07-20 08:06 | NUR ---
RN CLOSING NOTE PT REMAINS IN NO ACUTE DISTRESS IN BED. PT DID NOT HAVE ANY SIGNIFICANT CHANGE IN CONDITION DURING SHIFT. ALL NEEDS MET ALL ORDERS CARRIED OUT. WILL ENDORSE CARE TO AM RN FOR CONTINUITY OF CARE.
[2017-07-20 08:23] VITALS: BP 125/54
[2017-07-20] MEDS: SUCRALFATE 1 G/10 ML UDC GT SCH ×3 (08:38→17:25)
[2017-07-20] MEDS: PANTOPRAZOLE 40 MG/PACK PACK GT SCH (08:38)
[2017-07-20] MEDS: LEVETIRACETAM SOL (5 ML) 100 MG/ML UDC GT SCH (08:38)
[2017-07-20] MEDS: MULTIVIT, IRON, MIN NO. 8, FA 1 TAB GT SCH (08:38)
[2017-07-20] MEDS: FERROUS SULFATE UDC 300 MG/5 ML UDC GT SCH (08:38)
[2017-07-20] MEDS: SULFAMETH/TRIMETH 800/160 MG 1 UDTAB TABLET PO SCH (08:38)
[2017-07-20] MEDS: PROSOURCE / PROSTAT (PYXIS) 30 ML UDC GT SCH (08:38)
[2017-07-20] MEDS: ASPIRIN 81 MG TAB.CHEW GT SCH (08:39)
[2017-07-20] MEDS: predniSONE 20 MG TABLET PO SCH (08:39)
[2017-07-20] MEDS: CHOLECALCIFEROL 1,000 UNIT TABLET (VIT D3) GT SCH (08:39)
[2017-07-20] MEDS: METOPROLOL TARTRATE 25 MG TABLET GT SCH ×2 (08:39→17:00)
[2017-07-20] MEDS: SENNOSIDES 8.6 MG TABLET GT SCH ×3 (08:39→17:25)
[2017-07-20] MEDS: VITAMIN B COMP W-C 1 TAB TABLET GT SCH (08:39)
[2017-07-20] MEDS: ACIDOPHILUS/BULGARICUS 1 EACH TAB.CHEW GT SCH ×2 (08:39→17:25)
[2017-07-20] MEDS: ASCORBIC ACID 500 MG TABLET GT SCH ×2 (08:39→17:25)
[2017-07-20] MEDS: LINAGLIPTIN 5 MG TABLET GT SCH (08:39)
[2017-07-20] MEDS: HYDROGEL DRESSING 90 GM TUBE TP SCH (08:40)
[2017-07-20] MEDS: Z GUARD REMEDY 2 OZ OINT TP SCH (08:40)
[2017-07-20] MEDS ORDERED: SULFAMETH/TRIMETH 800/160 MG 1 UDTAB TABLET PO SCH (10:00)
[2017-07-20 12:00] VITALS: BP 110/57
[2017-07-20] MEDS: Magnesium 1GM/D5W 100ML PREMIX 100 ML IV SCH ×3 (12:42→14:48)
[2017-07-20 17:00] VITALS: BP 107/57
[2017-07-20] MEDS ORDERED: PROSOURCE / PROSTAT (PYXIS) 30 ML UDC GT SCH (17:00)
--- NOTE | 2017-07-20 18:00 | NUR ---
MS RN NOTE: PATIENT D/C TO [facility]. REPORT GIVEN TO INTAKE NURSE YONATAN [phone]. A&OX1, VS: 98.7 TEMP, 98 HR, 19 RR, 99% O2SAT, 107/57 BP, DENIED PAIN. PICTURES TAKEN. PT UNABLE TO SIGN D/C FORMS DUE TO CONDITION. NO BELONGINGS WHEN ADMITTED. D/C FORMS GIVEN TO EMT. PT LEFT THE UNIT AT 1600 WITH 2 TOOL CRIB SUPERVISOR.
== END 2017-07-20 18:18 | DRG 871 ==
LOC: ER 10:41 → TELE-TD 12:35 → TELE1 07-14 13:38 → MEDSG1 07-19 09:58
PROVIDERS: ADMIT Internal Medicine; ATTEND Internal Medicine
PROC: 30233N1 Transfusion of Nonautologous Red Blood Cells into Peripheral Vein, Percutaneous Approach (ICD-10-PCS; principal; 2017-07-14)
PROC: 05H533Z Insertion of Infusion Device into Right Subclavian Vein, Percutaneous Approach (ICD-10-PCS; 2017-07-14)
PROC: B546ZZA Ultrasonography of Right Subclavian Vein, Guidance (ICD-10-PCS; 2017-07-15)
DX: A41.9 Sepsis, unspecified organism (principal); E43 Unspecified severe protein-calorie malnutrition; N17.0 Acute kidney failure with tubular necrosis; J69.0 Pneumonitis due to inhalation of food and vomit; J96.01 Acute respiratory failure with hypoxia; L89.150 Pressure ulcer of sacral region, unstageable; G92 Toxic encephalopathy; R53.2 Functional quadriplegia; N18.4 Chronic kidney disease, stage 4 (severe); D68.59 Other primary thrombophilia; N39.0 Urinary tract infection, site not specified; D62 Acute posthemorrhagic anemia; L89.320 Pressure ulcer of left buttock, unstageable; L89.620 Pressure ulcer of left heel, unstageable; R13.10 Dysphagia, unspecified; G30.9 Alzheimer's disease, unspecified; F02.80 Dementia in other diseases classified elsewhere, unspecified severity, without behavioral disturbance, psychotic disturbance, mood disturbance, and anxiety; E83.42 Hypomagnesemia; D63.8 Anemia in other chronic diseases classified elsewhere; E66.9 Obesity, unspecified; E78.5 Hyperlipidemia, unspecified; E87.70 Fluid overload, unspecified; F29 Unspecified psychosis not due to a substance or known physiological condition; F32.9 Major depressive disorder, single episode, unspecified; F41.9 Anxiety disorder, unspecified; G40.909 Epilepsy, unspecified, not intractable, without status epilepticus; I70.0 Atherosclerosis of aorta; I67.2 Cerebral atherosclerosis; K29.80 Duodenitis without bleeding; K21.9 Gastro-esophageal reflux disease without esophagitis; K59.00 Constipation, unspecified; Z93.1 Gastrostomy status; Z88.0 Allergy status to penicillin; Z87.440 Personal history of urinary (tract) infections; Z86.73 Personal history of transient ischemic attack (TIA), and cerebral infarction without residual deficits; Z86.718 Personal history of other venous thrombosis and embolism; Z79.84 Long term (current) use of oral hypoglycemic drugs; Z79.82 Long term (current) use of aspirin; Z79.01 Long term (current) use of anticoagulants; Z68.30 Body mass index [BMI] 30.0-30.9, adult; Z91.048 Other nonmedicinal substance allergy status; Z79.4 Long term (current) use of insulin; Z79.899 Other long term (current) drug therapy; R65.20 Severe sepsis without septic shock; I27.2 Other secondary pulmonary hypertension; I12.9 Hypertensive chronic kidney disease with stage 1 through stage 4 chronic kidney disease, or unspecified chronic kidney disease; D50.9 Iron deficiency anemia, unspecified; E11.22 Type 2 diabetes mellitus with diabetic chronic kidney disease; B95.2 Enterococcus as the cause of diseases classified elsewhere; B96.20 Unspecified Escherichia coli [E. coli] as the cause of diseases classified elsewhere; Q27.33 Arteriovenous malformation of digestive system vessel; I34.0 Nonrheumatic mitral (valve) insufficiency
CPT/HCPCS: 36415; 36600; 70450-TC; 71010-TC; 80048-TC; 80053-TC; 80076-TC; 80185-TC; 80202-TC; 81000-TC; 82272-TC; 82542; 82553-TC; 82803-TC; 82962-TC; 83540-TC; 83605-TC; 83735-TC; 84100-TC; 84484-TC; 85025-TC; 85027-TC; 85610-TC; 85730-TC; 86850-TC; 86921-TC; 87040-TC; 87070-TC; 87081-TC; 87086-TC; 87186-TC; 93307-TC; 93971-TC; A6248; A6253; A6402; A9563; J1815; J1940; J1953; J2270; J2543; J2930; J3370; J3475; J3490; J7030; J7040; J7050; J7060; P9016-BL; Q0162; Z7610

== ENCOUNTER 2017-07-25 20:02 | Inpatient (IN) | payer MEDICARE, OTHER ==
[~2017-07-25] VITALS: Ht 165.1 cm; Wt 52.2 kg
[~2017-07-25 20:02] MED LIST changes: +ACID1TAB12 GT; +ASCO500S2 GT; -ASCO500T9 PO; -ASPI-991 PO; +ASPI81TA2 GT; +CHOL100044 GT; -CHOL400T11 PO; +FERR300L GT; -FERR325T28 PO; -IPRA0.2S49 NEB; +IPRA0.2S9 IH; -LACT1CAP61 PO; -LEVO250T59 PO; +NUT.100029 GT; -NUT.100029 NG; +ONDA-25 GT; -ONDA4TAB8 PO; +PANT40SU2 GT; -PANT40TA2 PO; -PHEN100C4 PO; +PHEN100O4 GT; +SUCR1ORA2 GT; -SUCR1ORA6 PO
--- NOTE | 2017-07-25 20:10 | NUR ---
int. assess: pt a/o 1, withdraws from pain, breathing even/unlabored, FLACC 0/10, NAD noted. Bilateral upper extremety demetris 4+. folley cath 16F in place.
[2017-07-25 20:43] LABS: APPEARANCE,URINE Clear (CLEAR); BILIRUBIN,URINE Negative (NEGATIVE); BLOOD, URINE Trace-intact Ery/uL (NEGATIVE); COLOR,URINE Yellow (YELLOW); KETONES,URINE Negative (NEGATIVE); LEUKOCYTE ESTERASE ,URINE Moderate (NEGATIVE); NITRITE, URINE Positive (NEGATIVE); PROTEIN,URINE 30 mg/dl (NEGATIVE); UGLUCOSE Negative (NEGATIVE); UROBILINOGEN,URINE 0.2 EU/dL (0.2)
[2017-07-25 20:46] LABS: HEMATOCRIT 21 % (33-45); MEAN CORPUSCULAR HEMOGLOBIN 27 PG (26.0-33.0); MEAN CORPUSCULAR HGB CONC 33 g/dl (31.0-36.0); MEAN CORPUSCULAR VOLUME 83 fL (82-100); PLATELET COUNT (AUTO) 603 /CMM (150-450); RDW COEFFICIENT OF VARIATION 18.5 (11.5-15.0); RED BLOOD CELL COUNT(AUTO) 2.52 MIL/uL (4.0-5.2); WHITE BLOOD COUNT (AUTO) 15.7 K/uL (4.3-11.0)
[2017-07-25 20:49] LABS: HEMOGLOBIN 6.8 g/dL (11.5-14.8)
[2017-07-25] MEDS ORDERED: MEROPENEM 500 MG in IV NS 0.9% 50 ML IV ONE (21:00)
[2017-07-25 21:01] LABS: INR 0.99 (0.87-1.13); PROTHROMBIN TIME 10.3 SECS (9.5-12.7)
--- NOTE | 2017-07-25 21:03 | NUR ---
PAGED DR BARTH OPERATIONS TECH PANEL
[2017-07-25 21:04] LABS: BACTERIA,URINE Moderate /HPF (None Seen); SQUAMOUS EPITHELIAL CELL,UR Few /HPF (None Seen)
[2017-07-25 21:23] LABS: BAND % (MANUAL) 4 % (0.0-5.0); LYMPHOCYTES % (MANUAL) 4 % (16-48); MONOCYTES % (MANUAL) 6 % (0-11.0); NEUTROPHILS % (MANUAL) 86 (42-76)
[2017-07-25 21:24] LABS: CALCIUM, SERUM 8.5 mg/dL (8.5-10.1); CARBON DIOXIDE 25 mmol/L (21-32); CHLORIDE 100 mmol/L (98-107); CREATININE 1.1 mg/dL (0.6-1.3); GLUCOSE 152 mg/dL (74-106); POTASSIUM 4.5 mmol/L (3.5-5.1); SODIUM SERUM 135 mmol/L (136-145); UREA NITROGEN, BLOOD 42 mg/dL (7-18)
[2017-07-25] MEDS ORDERED: MEROPENEM 500 MG VIAL IV ONE (21:24)
[2017-07-25 21:30] LABS: ALANINE AMINOTRANSFERASE 16 U/L (12-78); ALBUMIN 1.6 g/dL (3.4-5.0); ALKALINE PHOSPHATASE 90 U/L (46-116); ASPARTATE AMINOTRANSFERASE 18 U/L (15-37); BILIRUBIN,TOTAL 0.1 mg/dL (0.2-1.0); TOTAL PROTEIN, SERUM 5.9 g/dL (6.4-8.2)
[2017-07-25] MEDS ORDERED: phenytoin SODIUM IV 1,000 MG in IV NS 0.9% 100 ML IV ONE (21:30)
[2017-07-25] MEDS ORDERED: IV NS 0.9% 1,000 ML IV PRN (21:39)
[2017-07-25] MEDS ORDERED: phenytoin SODIUM IV 250 MG/5 ML VIAL IV ONE (21:49)
[2017-07-25] MEDS ORDERED: VANCOMYCIN 1 GM in IV D5W 250 ML IV SCH (22:00)
[2017-07-25] MEDS ORDERED: ONDANSETRON HCL/PF 4 MG/2 ML VIAL IVP PRN (22:00)
[2017-07-25] MEDS ORDERED: PANTOPRAZOLE 40 MG VIAL IV SCH (22:00)
[2017-07-25] MEDS ORDERED: DEXTROSE 50%-WATER 50 ML DISP.SYRIN IV PRN (22:00)
[2017-07-25] MEDS ORDERED: IV NS 0.9% 1,000 ML BAG IV ONE (22:00)
[2017-07-25] MEDS ORDERED: ACETAMINOPHEN 650 MG/SUPP.RECT RC PRN (22:00)
[2017-07-25 22:35] VITALS: BP 145/56
[2017-07-25] MEDS ORDERED: PANTOPRAZOLE 40 MG VIAL ONE (23:22)
[2017-07-25] MEDS ORDERED: VANCOMYCIN 1 GM VIAL ONE (23:24)
[2017-07-26] VITALS (18 sets, daily range): BP systolic 92–144; BP diastolic 41–94
[2017-07-26] MEDS ORDERED: MAG HYDROX/AL HYDROX/SIMETH 30 ML UDC GT PRN
[2017-07-26] MEDS ORDERED: ALBUTEROL FS 2.5 MG/0.5 ML VIAL.NEB NEB PRN
[2017-07-26] MEDS ORDERED: MAGNESIUM HYDROXIDE 30 ML UDC GT PRN
[2017-07-26] MEDS ORDERED: OLANZAPINE 5 MG/TAB.RAPDIS SL PRN
[2017-07-26] MEDS ORDERED: CLONIDINE HCL 0.1 MG TABLET GT PRN
[2017-07-26] MEDS ORDERED: IPRATROPIUM NEB FS 0.5 MG/2.5 ML AMPUL.NEB IH PRN
[2017-07-26] MEDS ORDERED: BLOOD SUGAR DIAGNOSTIC 1 EACH STRIP IN SCH
[2017-07-26] MEDS ORDERED: LORAZEPAM 0.5 MG TABLET GT PRN
[2017-07-26] MEDS ORDERED: HYDROCODONE/APAP 10/325MG 1 EA TABLET GT PRN
[2017-07-26] MEDS ORDERED: ZOLPIDEM TARTRATE 5 MG TABLET GT PRN
--- NOTE | 2017-07-26 01:00 | NUR ---
RN NOTE; CALLED AND LEFT MESSAGE TO GRANDDAUGHTER AMAN AMBIKA TO GET AN CONSENT FOR BLOOD TRANSFUSION FOR LOW HGB 6.8 AND ALSO FOR THE PROCEDURE EGD,COLONOSCOPY , AWAITING CALL BACK . PRIMARY NURSE AWARE
--- NOTE | 2017-07-26 01:20 | NUR ---
RN NOTE; CALLED AND LEFT MESSAGE TO DAUGHTER ROMEO GARRETT TO GET AN CONSENT FOR BLOOD TRANSFUSION FOR LOW HGB 6.8 AND ALSO FOR THE PROCEDURE EGD,COLONOSCOPY , AWAITING CALL BACK . PRIMARY NURSE AWARE
--- NOTE | 2017-07-26 02:10 | NUR ---
RN NOTE; UNABLE TO GET CONSENT FOR BLOOD TRANSFUSION AT THIS TIME FROM FAMILY MEMBER , PAGED SHEAR OPERATOR AUTOMATIC DR BARTH FOR CONSENT , AWAITING CALL BACK .
--- NOTE | 2017-07-26 02:52 | NUR ---
RN NOTE; CALLED FRAMEMAN DR BARTH AGAIN TO GET CONSENT FOR BLOOD TRANSFUSION FOR HGB 6.8 , VERBALIZED TO WAIT UNTIL FAMILY CALLS BACK , PT DON'T HAVE ACTIVE BLEEDING AT THIS TIME . WILL CONTINUE TO MONITOR . PRIMARY NURSE RUBEN INFORMED .
[2017-07-26] MEDS: BLOOD SUGAR DIAGNOSTIC 1 EACH STRIP IN SCH ×5 (03:08→23:49)
[2017-07-26] MEDS ORDERED: MEROPENEM 1 G in IV NS 0.9% 100 ML IV SCH (05:00)
[2017-07-26] MEDS: PHENYTOIN SUSP UDC 100 MG/4 ML UDC GT SCH ×3 (05:00→21:21)
[2017-07-26] MEDS ORDERED: MEROPENEM 1 G VIAL IV ONE (05:37)
[2017-07-26 06:41] LABS: BASOPHILS % (AUTO) 0.3 % (0.0-2.0); EOSINOPHILS # (AUTO) 0.1 /CMM (0.0-0.7); LYMPHOCYTES # (AUTO) 1.3 /CMM (0.8-4.8); LYMPHOCYTES % (AUTO) 9.1 % (20.0-44.0); MEAN CORPUSCULAR HEMOGLOBIN 27 PG (26.0-33.0); MEAN CORPUSCULAR HGB CONC 32 g/dl (31.0-36.0); MEAN CORPUSCULAR VOLUME 85 fL (82-100); MONOCYTES # (AUTO) 0.8 /CMM (0.1-1.30); MONOCYTES % (AUTO) 5.4 % (2.0-12.0); NEUTROPHILS # (AUTO) 11.9 /CMM (1.8-8.9); NEUTROPHILS % (AUTO) 84.2 % (43.0-81.0); PLATELET COUNT (AUTO) 513 /CMM (150-450); RDW COEFFICIENT OF VARIATION 19.5 (11.5-15.0); RED BLOOD CELL COUNT(AUTO) 2.24 MIL/uL (4.0-5.2); WHITE BLOOD COUNT (AUTO) 14.2 K/uL (4.3-11.0)
--- NOTE | 2017-07-26 06:50 | NUR ---
CALLED AMAN APPLE REGARDING CONSENT, NO ANSWER, LEFT MESSAGE. CHARGE NURSE AWARE
[2017-07-26 07:01] LABS: HEMATOCRIT 19 % (33-45); HEMOGLOBIN 6.1 g/dL (11.5-14.8)
--- NOTE | 2017-07-26 07:15 | NUR ---
JAIME RN NOTES RECEIVED PATIENT AOX1 , CONFUSE , NOT IN ACUTE DISTRESS , RESPIRATIONS EVEN AND UNLABORED WITH SPO2 OF 99% VIA 2LPM NC , SR 95 ON TELE MONITOR , FC DRAINING WELL VIA GRAVITY WITH CLEAR YELLOW URINE , LFA # 20 PATENT AND INTACT WITH NS @ 75ML/HR INFUSING WELL , ALL NEEDS ATTENDED , BED ON LOW AND LOCKED POSITION , SIDE RAILS X2 ,CALL LIGHT WITHIN REACH , HOB @ 45 , WILL CONTINUE TO MONITOR.
--- NOTE | 2017-07-26 07:16 | NUR ---
LAB CALLED WITH HEMOGLOBIN RESULT OF 6.1, NO S/S OF ACTIVE BLEEDING NOTED, CALLED WITH RESULT, AM CHARGE NURSE AWARE.
--- NOTE | 2017-07-26 07:25 | NUR ---
HARDWARE TECHNICIAN NOTES SPOKE WITH ROMEO GARRETT DAUGHTER , NOTIFIED REGARDING PT STATUS , DISCUSSED THAT PT NEEDS A BLOOD TRANSFUSION DUE TO LOW HEMOGLOBIN , PT UNABLE TO SIGN CONSENT DUE TO NEUROLOGICAL STATUS , EXPLAINED TO DAUGHTER THE RISK AND BENEIFITS OF BLOOD TRANSFUSION , DAUGHTER AGREES AND VERBALIZED UNDERSTANDING . SHANIKA ERWIN WITNESS VIA TELEPHONE CONSENT
--- NOTE | 2017-07-26 08:34 | NUR ---
TAPE SEWING MACHINE OPERATOR NOTES PT STABLE PRIOR TO BLOOD TRANSFUSION , NOT IN ACUTE DISTRESS , AFEBRILE , V/S STABLE , VERIFIED BLOOD WITH ANOTHER RN ROXIE , WILL CONTINUE TO MONITOR FOR BLOOD TRANSFUSION REACTIONS .
[2017-07-26] MEDS: PANTOPRAZOLE 40 MG/PACK PACK GT SCH ×2 (08:41→21:22)
[2017-07-26] MEDS: METOPROLOL TARTRATE 25 MG TABLET GT SCH ×2 (08:41→16:22)
[2017-07-26] MEDS: LEVETIRACETAM SOL (5 ML) 100 MG/ML UDC GT SCH ×2 (08:41→21:22)
[2017-07-26] MEDS: PROSOURCE / PROSTAT (PYXIS) 30 ML UDC GT SCH ×2 (08:41→16:26)
[2017-07-26] MEDS: SUCRALFATE 1 G/10 ML UDC GT SCH ×4 (08:41→21:21)
[2017-07-26] MEDS: ASPIRIN 81 MG TAB.CHEW GT SCH (08:41)
[2017-07-26] MEDS: ACIDOPHILUS/BULGARICUS 1 EACH TAB.CHEW GT SCH ×2 (08:41→16:22)
[2017-07-26] MEDS: FAMOTIDINE (20 MG) 20 MG TABLET GT SCH ×2 (08:41→21:22)
[2017-07-26] MEDS: FERROUS SULFATE UDC 300 MG/5 ML UDC GT SCH (08:41)
[2017-07-26] MEDS: Z GUARD REMEDY 2 OZ OINT TP SCH (08:42)
[2017-07-26] MEDS: CHOLECALCIFEROL 1,000 UNIT TABLET (VIT D3) GT SCH (08:42)
[2017-07-26] MEDS: SENNOSIDES 8.6 MG TABLET GT SCH ×4 (08:42→21:22)
[2017-07-26] MEDS: ASCORBIC ACID 500 MG TABLET GT SCH ×2 (08:42→16:22)
[2017-07-26] MEDS: LINAGLIPTIN 5 MG TABLET GT SCH (08:42)
--- NOTE | 2017-07-26 08:49 | NUR ---
LIMITED RADIOLOGY TECHNICIAN NOTES PT STABLE AFTER 15 MINUTES OF INITIATING BLOOD TRANSFUSION , V./S STABLE AFEBRILE , NO BLOOD TRANSFUSION REACTION NOTED , WILL CONTINUE TO MONITOR .
[2017-07-26] MEDS ORDERED: ACETAMINOPHEN 650 MG/20.3 ML UDC GT PRN (09:00)
[2017-07-26] MEDS: VITAMIN B COMP W-C 1 TAB TABLET GT SCH (09:00)
[2017-07-26] MEDS ORDERED: MULTIVITS,TH W-FE,OTHER MIN 1 TAB TABLET GT SCH (09:00)
[2017-07-26] MEDS: MULTIVIT, IRON, MIN NO. 8, FA 1 TAB GT SCH (09:00)
[2017-07-26] MEDS ORDERED: ONDANSETRON 4 MG TAB.RAPDIS GT PRN (09:00)
--- NOTE | 2017-07-26 09:00 | NUR ---
JAIME RN NOTES GT MEDS HELD , PT IS NPO , WILL CONTINUE TO MONITOR
[2017-07-26] MEDS ORDERED: FEE PK DOSING 1 MIN EA MC ONE (11:16)
--- NOTE | 2017-07-26 11:48 | NUR ---
JAIME RN NOTES DR MOHAMUD AT BEDSIDE , DISCUSSED LABS , WITH ONGOING 1 UNIT PRBC , NO ACTIVE BLEEDING NOTED , VERIFIED NPO ORDER AM MEDS WERE HELD , PER MD PUT PT ON NPO EXEPT MEDS AND CHANGE IVF TO D5NS @ 75ML/HR , ORDERS CARRIED OUT
[2017-07-26] MEDS: IV D5/ 0.9% NACL 1,000 ML IV PRN (12:01)
--- NOTE | 2017-07-26 12:15 | NUR ---
SENIOR SOFTWARE ANALYST NOTES SEEN AND EVALUATED BY DR DUMONT , DISCUSSED LABS , WITH ONGOING 1 UNIT PRBC , V/S STABLE , AFEBRILE , NO ACTIVE BLEEDING NOTED , PER MD HOLD GT FEEDING AND KEEP PT NPO EXCEPT MEDS , CHECK IRON PANEL AND FERRITIN , ORDERS CARRIED OUT
[2017-07-26 12:53] LABS: IRON, SERUM 15 ug/dl (50-175); TOTAL IRON BINDING CAPACITY 181 ug/dl (250-450)
[2017-07-26 13:02] LABS: BAND % (MANUAL) 1 % (0.0-5.0); LYMPHOCYTES % (MANUAL) 10 % (16-48); MONOCYTES % (MANUAL) 7 % (0-11.0); NEUTROPHILS % (MANUAL) 82 (42-76)
--- NOTE | 2017-07-26 14:25 | NUR ---
IT ARCHITECTURE CONSULTANT NOTES NOTIFIED DR DUMONT AND DR MOHAMUD REGARDING IRON PANEL RESULT , PER DR MOHAMUD START PT ON FERRLECIT IV X5 DAYS , VERIFIED ORDER PT WBC IS 14.2 WITH LACTIC OF 4.0 LAST NIGHT , MD AWARE . OK TO START FERRLECIT .
--- NOTE | 2017-07-26 15:00 | NUR ---
JAIME RN NOTES NOTIFIED DR MOHAMUD REGARDING REPEAT H/H 7.05/06 , VERIFIED IF HE STILL WANT TO GIVE 1 UNIT PRBC , AWAITING FOR CALL BACK
[2017-07-26 15:13] LABS: HEMOGLOBIN 7.6 g/dL (11.5-14.8)
[2017-07-26] MEDS: MEROPENEM 1 G in IV NS 0.9% 100 ML IV SCH (16:22)
[2017-07-26] MEDS: SOD FERRIC GLUC 125 MG in IV NS 0.9% 100 ML IV SCH (16:26)
[2017-07-26] MEDS: INSULIN REGULAR, HUMAN 100 UNIT/ML 3 ML VIAL SQ PRN ×2 (17:04→23:53)
--- NOTE | 2017-07-26 18:30 | NUR ---
JAIME RN NOTES SPOKE WITH DR MOHAMUD , PER MD GIVE ANOTHER 1 UNIT PRBC , WILL CONTINUE TO MONITOR
--- NOTE | 2017-07-26 19:23 | NUR ---
MS RN INITIAL NOTE PT RECEIVED IN BED SLEEPING. LETHARGIC AND AROUSABLE TO LIGHT PAIN. ON 3L OF O2 VIA NASAL CANNULA AND SATURATING WELL. BREATHING REGULAR, EVEN AND UNLABORED. IV SITE INTACT, PATENT AND FLUSHING WELL. GTUBE IN PLACE, CLEAN AND CLAMPED. NPO EXCEPT MEDS STATUS OBSERVED. CRAIG CATHETER IN PLACE AND DRAINING BY GRAVITY. ENDORSED TO GIVE 1 UNIT OF BLOOD. CALL LIGHT WITHIN REACH. BED IN LOWEST POSITION AND LOCKED. WILL CONTINUE TO MONITOR.
[2017-07-26] MEDS: VANCOMYCIN 1 GM in IV D5W 250 ML IV SCH (21:22)
[2017-07-27] VITALS: BP 131/62
[2017-07-27 00:11] VITALS: BP 133/74
[2017-07-27 04:00] VITALS: BP 128/59
[2017-07-27] MEDS: PHENYTOIN SUSP UDC 100 MG/4 ML UDC GT SCH ×3 (05:00→22:33)
[2017-07-27] MEDS: IV D5/ 0.9% NACL 1,000 ML IV PRN (05:01)
[2017-07-27] MEDS: MEROPENEM 1 G in IV NS 0.9% 100 ML IV SCH ×2 (05:06→17:37)
[2017-07-27] MEDS: BLOOD SUGAR DIAGNOSTIC 1 EACH STRIP IN SCH ×4 (05:17→23:15)
[2017-07-27 06:53] LABS: BASOPHILS # (AUTO) 0.1 /CMM (0.0-0.2); BASOPHILS % (AUTO) 0.7 % (0.0-2.0); EOSINOPHILS # (AUTO) 0.2 /CMM (0.0-0.7); EOSINOPHILS % (AUTO) 1.4 % (0.0-6.0); HEMATOCRIT 31 % (33-45); HEMOGLOBIN 10.1 g/dL (11.5-14.8); LYMPHOCYTES % (AUTO) 7.9 % (20.0-44.0); MEAN CORPUSCULAR HEMOGLOBIN 28 PG (26.0-33.0); MEAN CORPUSCULAR HGB CONC 33 g/dl (31.0-36.0); MEAN CORPUSCULAR VOLUME 86 fL (82-100); MONOCYTES # (AUTO) 1.1 /CMM (0.1-1.30); MONOCYTES % (AUTO) 8.7 % (2.0-12.0); NEUTROPHILS # (AUTO) 10.5 /CMM (1.8-8.9); NEUTROPHILS % (AUTO) 81.3 % (43.0-81.0); PLATELET COUNT (AUTO) 479 /CMM (150-450); RDW COEFFICIENT OF VARIATION 16.6 (11.5-15.0); RED BLOOD CELL COUNT(AUTO) 3.58 MIL/uL (4.0-5.2); WHITE BLOOD COUNT (AUTO) 12.9 K/uL (4.3-11.0)
--- NOTE | 2017-07-27 07:20 | NUR ---
MS RN CLOSING NOTE PT REMAINED STABLE DURING SHIFT. NO ACUTE DISTRESS NOTED. 1 UNIT OF PRBC TRANSFUSED AND WELL TOLERATED WITHOUT REACTIONS. ALL NEEDS ATTENDED TO PROMPTLY. KEPT CLEAN AND DRY. REPOSITIONED Q2H. CALL LIGHT WITHIN REACH. ALL SAFETY MEASURES IN PLACE. WILL ENDORSE TO NEXT SHIFT FOR CONTINUITY OF CARE.
[2017-07-27 07:29] LABS: CALCIUM, SERUM 7.7 mg/dL (8.5-10.1); CARBON DIOXIDE 25 mmol/L (21-32); CHLORIDE 104 mmol/L (98-107); CREATININE 0.8 mg/dL (0.6-1.3); GLUCOSE 125 mg/dL (74-106); MAGNESIUM 1.4 mg/dL (1.8-2.4); PHOSPHORUS 3.6 mg/dL (2.5-4.9); POTASSIUM 3.5 mmol/L (3.5-5.1); SODIUM SERUM 138 mmol/L (136-145); UREA NITROGEN, BLOOD 28 mg/dL (7-18)
[2017-07-27 08:00] VITALS: BP 145/63
[2017-07-27] MEDS: LEVETIRACETAM SOL (5 ML) 100 MG/ML UDC GT SCH ×2 (08:48→22:33)
[2017-07-27] MEDS: ZINC SULFATE 220 MG CAPSULE PO SCH (08:48)
[2017-07-27] MEDS: METOPROLOL TARTRATE 25 MG TABLET GT SCH ×2 (08:49→16:10)
[2017-07-27] MEDS: SUCRALFATE 1 G/10 ML UDC GT SCH ×4 (08:49→22:39)
[2017-07-27] MEDS: MULTIVIT, IRON, MIN NO. 8, FA 1 TAB GT SCH (08:49)
[2017-07-27] MEDS: FAMOTIDINE (20 MG) 20 MG TABLET GT SCH ×2 (08:49→22:34)
[2017-07-27] MEDS: VITAMIN B COMP W-C 1 TAB TABLET GT SCH (08:49)
[2017-07-27] MEDS: ASPIRIN 81 MG TAB.CHEW GT SCH (08:50)
[2017-07-27] MEDS: PANTOPRAZOLE 40 MG/PACK PACK GT SCH ×2 (08:50→22:33)
[2017-07-27] MEDS: ASCORBIC ACID 500 MG TABLET GT SCH ×2 (08:50→16:10)
[2017-07-27] MEDS: LINAGLIPTIN 5 MG TABLET GT SCH (08:50)
[2017-07-27] MEDS: ACIDOPHILUS/BULGARICUS 1 EACH TAB.CHEW GT SCH ×2 (08:50→16:10)
[2017-07-27] MEDS: CHOLECALCIFEROL 1,000 UNIT TABLET (VIT D3) GT SCH (08:50)
[2017-07-27] MEDS: FERROUS SULFATE UDC 300 MG/5 ML UDC GT SCH (08:50)
[2017-07-27] MEDS: Z GUARD REMEDY 2 OZ OINT TP SCH (08:51)
[2017-07-27] MEDS: SENNOSIDES 8.6 MG TABLET GT SCH ×4 (08:54→22:33)
[2017-07-27] MEDS: PROSOURCE / PROSTAT (PYXIS) 30 ML UDC GT SCH ×2 (08:54→16:11)
--- NOTE | 2017-07-27 10:42 | NUR ---
RN NOTE REVIEWED PLAN OF CARE WITH DR. CADE STEVENS. MD GAVE VERBAL ORDER TO START GLYTRO TUBE FEEDING, GRADUALLY INCREASING RATE TO 60ML/HR X20 HOURS- SAME RECONCILED MEDS/ FEEDING FROM ASSISTED.
[2017-07-27] MEDS: Magnesium 1GM/D5W 100ML PREMIX 100 ML IV SCH ×4 (11:40→17:27)
[2017-07-27] MEDS: INSULIN REGULAR, HUMAN 100 UNIT/ML 3 ML VIAL SQ PRN ×3 (11:41→23:17)
[2017-07-27] MEDS: GLYTROL 1,000 ML BAG GT SCH (12:03)
[2017-07-27] MEDS ORDERED: SOD FERRIC GLUC 125 MG in IV NS 0.9% 100 ML IV SCH (14:00)
[2017-07-27 16:00] VITALS: BP 132/51
[2017-07-27] MEDS: SOD FERRIC GLUC 125 MG in IV NS 0.9% 100 ML IV SCH (16:11)
--- NOTE | 2017-07-27 19:26 | NUR ---
END OF SHIFT HANDED OFF BEDSIDE REPORT TO NIGHT NURSE. BREATHING EVEN AND UNLABORED. PATIENT RESTING IN BED, SLEEPING MOST OF THE SHIFT HOWEVER WAKES UP WITH TOUCH. SPOKE TO DAUGHTER GILDA AT LENGTH ABOUT PLAN OF CARE. PER DR. MOHAMUD PATIENT STABILIZING AND PLANNED FOR DISCHARGE PERHAPS TOMORROW. L WRIST IV CHECKED AND PATENT. F/C CONT' DRAINING, NON-OBSTRUCTED. WOUND CARE RENDERED.
[2017-07-27 20:00] VITALS: BP 134/64
[2017-07-27] MEDS: VANCOMYCIN 1 GM in IV D5W 250 ML IV SCH (22:41)
[2017-07-28 04:00] VITALS: BP 138/70
[2017-07-28] MEDS: MEROPENEM 1 G in IV NS 0.9% 100 ML IV SCH (05:47)
[2017-07-28] MEDS: PHENYTOIN SUSP UDC 100 MG/4 ML UDC GT SCH ×2 (05:48→12:17)
[2017-07-28] MEDS: BLOOD SUGAR DIAGNOSTIC 1 EACH STRIP IN SCH ×2 (06:04→12:17)
[2017-07-28] MEDS: INSULIN REGULAR, HUMAN 100 UNIT/ML 3 ML VIAL SQ PRN ×2 (06:06→12:20)
[2017-07-28 06:35] LABS: BASOPHILS % (AUTO) 0.3 % (0.0-2.0); EOSINOPHILS # (AUTO) 0.2 /CMM (0.0-0.7); EOSINOPHILS % (AUTO) 1.4 % (0.0-6.0); HEMATOCRIT 30 % (33-45); HEMOGLOBIN 10.2 g/dL (11.5-14.8); LYMPHOCYTES # (AUTO) 1.1 /CMM (0.8-4.8); LYMPHOCYTES % (AUTO) 8.3 % (20.0-44.0); MEAN CORPUSCULAR HEMOGLOBIN 29 PG (26.0-33.0); MEAN CORPUSCULAR HGB CONC 34 g/dl (31.0-36.0); MEAN CORPUSCULAR VOLUME 86 fL (82-100); MONOCYTES # (AUTO) 1.1 /CMM (0.1-1.30); MONOCYTES % (AUTO) 8.9 % (2.0-12.0); NEUTROPHILS # (AUTO) 10.4 /CMM (1.8-8.9); NEUTROPHILS % (AUTO) 81.1 % (43.0-81.0); PLATELET COUNT (AUTO) 514 /CMM (150-450); RDW COEFFICIENT OF VARIATION 16.7 (11.5-15.0); RED BLOOD CELL COUNT(AUTO) 3.52 MIL/uL (4.0-5.2); WHITE BLOOD COUNT (AUTO) 12.8 K/uL (4.3-11.0)
[2017-07-28 06:43] LABS: CALCIUM, SERUM 7.7 mg/dL (8.5-10.1); CARBON DIOXIDE 24 mmol/L (21-32); CHLORIDE 102 mmol/L (98-107); CREATININE 0.8 mg/dL (0.6-1.3); GLUCOSE 169 mg/dL (74-106); MAGNESIUM 1.9 mg/dL (1.8-2.4); POTASSIUM 3.4 mmol/L (3.5-5.1); SODIUM SERUM 136 mmol/L (136-145); UREA NITROGEN, BLOOD 24 mg/dL (7-18)
--- NOTE | 2017-07-28 06:46 | NUR ---
RN NOTES RECEIVED PATIENT SLEEPING IN BED WITH NO DISTRESS NOTED. BREATHING EVEN AND UNLABORED. NO PHYSICAL MANIFESTATION OF PAIN OR DISCOMFORT. VITAL SIGNS WNL. GT PATENT AND INTACT. FEEDING WELL TOLERATED. HOB ELEVATED. ABDOMEN SOFT AND NON TENDER. FC PATENT AND INTACT DRAINING CLEAR YELLOW WITH NO FOUL ODOR URINE. VOIDS FREELY WITHOUT DIFFICULTY. NO SIGNIFICANT CHANGE OF CONDITION. WILL ENDORSE TO AM SHIFT FOR CONTINUITY OF CARE.
[2017-07-28] MEDS: IV D5/ 0.9% NACL 1,000 ML IV PRN (06:58)
[2017-07-28] MEDS: SUCRALFATE 1 G/10 ML UDC GT SCH ×2 (07:30→12:17)
--- NOTE | 2017-07-28 07:42 | NUR ---
RN NOTES RECEIVED PT FROM OUTBOARD MOTORBOAT OPERATOR IN STABLE CONDITION, A&OX1 CONFUSED, ON 3L NASAL CANNULA SATING WELL, NO SOB OR DISTRESS NOTED. GLYTROL RUNNING AT 60ML/HR NO RESIDUAL NOTED. L WRIST 20 GAUGE IV SITE DRY AND INTACT IVF AT 75ML/HR.SIDE RAILS UPX3, CALL LIGHT WITHIN REACH, BED LOCKED AND IN LOWEST POSITION, WILL CONT TO MONITOR.
--- NOTE | 2017-07-28 08:05 | NUR ---
WOUND CARE CONSULT: PT PRESENTS WITH UNSTAGEABLE SACRAL ULCER, PRESENT ON ADMISSION. SURGEON ON CASE. PT ON FIRST STEP MATTRESS. ALL SKIN PROTECTION AND WOUND RECOMMENDATIONS DISCUSSED WITH NURSING STAFF. PT NOTED TO HAVE SWELLING AND SOME REDNESS TO LEFT ARM. DEFER TO MD. ARM ELEVATED ON PILLOW. WILL SEE PRN. ALL SKIN PROTECTION MEASURES IN PLACE. MD IN AGREEMENT WITH PLAN OF CARE. Addendum: 07/28/17 at 0807 by GILDA MCKEON WNDNU Amended: Links added.
--- NOTE | 2017-07-28 08:05 | NUR ---
RN NOTES PT IV SITE RED AND SWOLLEN, IV REMOVED, ARM ELEVATED.
[2017-07-28] MEDS ORDERED: HYDROGEL DRESSING 90 GM TUBE TP PRN (08:30)
[2017-07-28] MEDS ORDERED: HYDROGEL DRESSING 90 GM TUBE TP SCH (09:00)
[2017-07-28] MEDS: ASPIRIN 81 MG TAB.CHEW GT SCH (09:00)
[2017-07-28] MEDS: MULTIVIT, IRON, MIN NO. 8, FA 1 TAB GT SCH (09:27)
[2017-07-28] MEDS: ASCORBIC ACID 500 MG TABLET GT SCH (09:27)
[2017-07-28] MEDS: FAMOTIDINE (20 MG) 20 MG TABLET GT SCH (09:27)
[2017-07-28] MEDS: FERROUS SULFATE UDC 300 MG/5 ML UDC GT SCH (09:27)
[2017-07-28] MEDS: LEVETIRACETAM SOL (5 ML) 100 MG/ML UDC GT SCH (09:27)
[2017-07-28] MEDS: PANTOPRAZOLE 40 MG/PACK PACK GT SCH (09:27)
[2017-07-28] MEDS: ACIDOPHILUS/BULGARICUS 1 EACH TAB.CHEW GT SCH (09:27)
[2017-07-28] MEDS: VITAMIN B COMP W-C 1 TAB TABLET GT SCH (09:28)
[2017-07-28] MEDS: LINAGLIPTIN 5 MG TABLET GT SCH (09:28)
[2017-07-28] MEDS: SENNOSIDES 8.6 MG TABLET GT SCH ×2 (09:28→12:17)
[2017-07-28 09:29] VITALS: BP 136/66
[2017-07-28] MEDS: METOPROLOL TARTRATE 25 MG TABLET GT SCH (09:29)
[2017-07-28] MEDS: CHOLECALCIFEROL 1,000 UNIT TABLET (VIT D3) GT SCH (09:29)
[2017-07-28] MEDS: ZINC SULFATE 220 MG CAPSULE PO SCH (09:29)
[2017-07-28] MEDS: PROSOURCE / PROSTAT (PYXIS) 30 ML UDC GT SCH (09:30)
[2017-07-28] MEDS: Z GUARD REMEDY 2 OZ OINT TP SCH (09:30)
[2017-07-28] MEDS ORDERED: POTASSIUM CL. PREMIX PERIPHER. 50 ML IV SCH (09:35)
--- NOTE | 2017-07-28 11:50 | NUR ---
RN NOTES DR MOHAMUD NOTIFIED THAT PT HAS NO IV ACCESS DO TO POOR VEINS AND PRIOR INFILTRATION, NO MIDLINE WANTED.
[2017-07-28] MEDS ORDERED: NITR100C6 PO (12:53)
[2017-07-28] MEDS: GLYTROL 1,000 ML BAG GT SCH (13:00)
[2017-07-28] MEDS ORDERED: POTASSIUM CHLORIDE 20 MEQ TAB.PRT.SR PO ONE (14:00)
--- NOTE | 2017-07-28 16:45 | NUR ---
RN NOTES REPORT GIVEN TO ELIS FROM [facility]. PT WILL BE PICKED UP AT 1700
--- NOTE | 2017-07-28 17:45 | NUR ---
RN NOTES PT DISCHARGED IN STABLE CONDITION WITH EMT.
== END 2017-07-28 18:09 | DRG 871 ==
LOC: ER 20:04 → TELE-TD 21:27 → MEDSG1 07-26 16:25
PROVIDERS: ADMIT Internal Medicine; ATTEND Internal Medicine
PROC: 30233N1 Transfusion of Nonautologous Red Blood Cells into Peripheral Vein, Percutaneous Approach (ICD-10-PCS; principal; 2017-07-26)
DX: A41.9 Sepsis, unspecified organism (principal); E43 Unspecified severe protein-calorie malnutrition; N17.0 Acute kidney failure with tubular necrosis; G93.41 Metabolic encephalopathy; L89.150 Pressure ulcer of sacral region, unstageable; N18.4 Chronic kidney disease, stage 4 (severe); R53.2 Functional quadriplegia; D68.59 Other primary thrombophilia; E11.22 Type 2 diabetes mellitus with diabetic chronic kidney disease; Z68.1 Body mass index [BMI] 19.9 or less, adult; N39.0 Urinary tract infection, site not specified; D62 Acute posthemorrhagic anemia; G30.9 Alzheimer's disease, unspecified; D63.8 Anemia in other chronic diseases classified elsewhere; Q27.33 Arteriovenous malformation of digestive system vessel; E78.5 Hyperlipidemia, unspecified; E66.9 Obesity, unspecified; F32.9 Major depressive disorder, single episode, unspecified; K21.9 Gastro-esophageal reflux disease without esophagitis; Z79.01 Long term (current) use of anticoagulants; Z86.73 Personal history of transient ischemic attack (TIA), and cerebral infarction without residual deficits; Z86.718 Personal history of other venous thrombosis and embolism; G40.909 Epilepsy, unspecified, not intractable, without status epilepticus; Z93.1 Gastrostomy status; B96.20 Unspecified Escherichia coli [E. coli] as the cause of diseases classified elsewhere; E88.09 Other disorders of plasma-protein metabolism, not elsewhere classified; K59.00 Constipation, unspecified; K55.20 Angiodysplasia of colon without hemorrhage; I12.9 Hypertensive chronic kidney disease with stage 1 through stage 4 chronic kidney disease, or unspecified chronic kidney disease; F02.80 Dementia in other diseases classified elsewhere, unspecified severity, without behavioral disturbance, psychotic disturbance, mood disturbance, and anxiety; D50.0 Iron deficiency anemia secondary to blood loss (chronic); R13.10 Dysphagia, unspecified; Z87.11 Personal history of peptic ulcer disease; Z79.84 Long term (current) use of oral hypoglycemic drugs; K29.80 Duodenitis without bleeding; R65.20 Severe sepsis without septic shock
CPT/HCPCS: 36415; 71010-TC; 76700-TC; 80048-TC; 80076-TC; 80185-TC; 81000-TC; 82105; 82553-TC; 82728-TC; 82962-TC; 83540-TC; 83605-TC; 83735-TC; 84100-TC; 84484-TC; 85025-TC; 85027-TC; 85730-TC; 86850-TC; 86921-TC; 87040-TC; 87081-TC; 87086-TC; 87186-TC; A4216; A4606; A6248; A6403; C9113; J1165; J1815; J1953; J2185; J2916; J3370; J3475; J7030; J7042; J7050; J7060; P9016-BL; Z7610